=== PATIENT | female | born 1975 | race Caucasian/White ===

== ENCOUNTER 2017-11-21 10:45 | Inpatient (IN) | payer MEDICARE ==
[~2017-11-21] VITALS: Ht 167.6 cm; Wt 127.9 kg
[~2017-11-21 10:45] MED LIST: AC325T PO; CIPRO PO; CIPROFLOXACIN500 MG PO; COLACE100 MG PO; FIORINAL 50-321 EACH PO; FLAGYL PO; FLAGYL500 MG PO; INVEGA6 MG PO; KLONOPIN1 MG PO; KLONOPIN2 MG PO; LYRICA50 MG PO; MELOXICAM7.5 MG PO; PROMETHAZINE HC25 M1 PO; PROPRANOLOL HCL20 MG PO; PROPRANOLOL HCL40 MG PO; ULTRAM 50MG50 MG PO; ZOFRAN ODT4 MG PO
--- OUTSIDE RECORDS SUMMARY | 2017-11-21 10:48 | XMS REPORT ---
Author Author [facility] Organization [facility] Address Unknown Phone Unavailable Care Team Providers Care Social Work Administrator Name Role Phone JONG ALEJANDRE Unavailable Unavailable Problems This patient has no known problems. Allergies, Adverse Reactions, Alerts This patient has no known allergies or adverse reactions. Medications This patient has no known medications. Results Test Description Test Time Test Comments Text Results Atomic Results Result Comments CHEST 2 VIEWS [place] [address] Patient Name: SALAZAR HENNESSY MR #: [id number] : 1975 Age/Sex: 41/F Req #: [id number] Adm Physician: Ordered by: NICKOLAS HU Report #: [id number] Location: ER Room/Bed: Procedure: [id number] DX/CHEST 2 VIEWS Exam Date: 06/23/17 Exam Time: 1330 REPORT STATUS: Signed PROCEDURE: CHEST 2 VIEWS TECHNIQUE: PA and lateral chest INDICATION: Shortness of breath COMPARISON: [facility], DX, CHEST 2 VIEWS, 06/12/2016, 19:20. FINDINGS : Lungs are clear and symmetrically inflated. No pleural effusions. Normal heart size and central vasculature. Intact skeleton. CONCLUSION: No acute abnormality or interval change from June 2016. Dictated by: Fred Max M.D. on 06/23/2017 at 13:54 Electronically approved by: Fred Max M.D. on 06/23/2017 at 13:54 Dictated By: FRED MAX MD [id number] Transcribed By: DAVIDSON on 06/23/17 1353 COPY TO: NICKOLAS HU
[2017-11-21] MEDS ORDERED: ENOXAPARIN SODIUM INJ 100 MG/ML SYR SC STA (11:17)
[2017-11-21] MEDS ORDERED: FAMOTIDINE 20 MG/2 ML VIAL IV STA (11:17)
[2017-11-21] MEDS ORDERED: SODIUM CHLORIDE 0.9% 1000ML 1,000 ML IV STA ×2 (11:17)
[2017-11-21] MEDS ORDERED: ENOXAPARIN SOD INJ 60 MG/0.6 ML SYR SC NR (11:45)
[2017-11-21 12:12] LABS: BASOPHILS # (AUTO) 0.1 (0.0-0.1); BASOPHILS % 0.6 % (0.0-1.0); EOSINOPHILS # (AUTO) 0.3 (0.0-0.4); EOSINOPHILS % 2.8 % (0.0-6.0); HEMATOCRIT 34.9 % (34.2-44.1); HEMOGLOBIN 11.7 g/dL (12.0-16.0); LYMPHOCYTES # (AUTO) 3.4 (1.0-3.2); LYMPHOCYTES % 30.1 % (18.0-39.1); MEAN CORPUSCULAR HEMOGLOBIN 29.8 pg (28-32); MEAN CORPUSCULAR HGB CONC 33.5 g/dL (31-35); MEAN CORPUSCULAR VOLUME 88.8 fL (81-99); MONOCYTES # (AUTO) 0.8 (0.2-0.8); MONOCYTES % 6.8 % (4.4-11.3); NEUTROPHILS # (AUTO) 6.5 (2.1-6.9); NEUTROPHILS % 58.1 % (38.7-80.0); PLATELET COUNT 531 x10e3/uL (140-360); RED BLOOD COUNT 3.93 x10e6/uL (3.6-5.1); RED CELL DISTRIBUTION WIDTH 13.4 % (11.7-14.4)
[2017-11-21 12:21] LABS: BILIRUBIN,URINE NEGATIVE (NEGATIVE); KETONES,URINE NEGATIVE (NEGATIVE); LEUKOCYTE ESTERASE ,URINE NEGATIVE (NEGATIVE); NITRITE,URINE NEGATIVE (NEGATIVE); PROTEIN,URINE DIPSTICK NEGATIVE (NEGATIVE); URINE UROBILINOGEN 0.2 mg/dL (0.2 - 1)
[2017-11-21 12:30] LABS: INR 1.02; PARTIAL THROMBOPLASTIN TIME 17.5 seconds (23.8-35.5); PROTHROMBIN TIME 12.6 seconds (11.9-14.5)
[2017-11-21 12:32] LABS: CLARITY,URINE SL CLOUDY (CLEAR); COLOR,URINE YELLOW (YELLOW)
[2017-11-21 12:34] LABS: BACTERIA,URINE MANY /HPF; EPITHELIAL CELLS,URINE FEW /LPF
[2017-11-21 12:38] LABS: ALANINE AMINOTRANSFERASE 23 IU/L (0-55); ALBUMIN 3.4 g/dL (3.5-5.0); ALBUMIN/GLOBULIN RATIO 0.9 (0.8-2.0); ALKALINE PHOSPHATASE 95 IU/L (40-150); ANION GAP 14.2 mmol/L (8-16); BLOOD UREA NITROGEN 13 mg/dL (7-26); BUN/CREATININE RATIO 15 (6-25); CALCIUM 9.7 mg/dL (8.4-10.2); CARBON DIOXIDE 22 mmol/L (22-29); CHLORIDE 106 mmol/L (98-107); CREATININE, SERUM 0.85 mg/dL (0.57-1.11); EST GLOMERULAR FILTRATION RATE > 60 ML/MIN (60-); GLUCOSE 84 mg/dL (74-118); LIPASE 26 U/L (8-78); MAGNESIUM 1.9 MG/DL (1.3-2.1); POTASSIUM 4.2 mmol/L (3.5-5.1); SODIUM 138 mmol/L (136-145)
[2017-11-21 12:39] LABS: CREATINE KINASE < 7 IU/L (29-168)
--- NOTE | 2017-11-21 13:04 | Diagnostic Imaging Report ---
PROCEDURE: A single AP view of the chest. COMPARISON: Chest radiograph 06/23/2017 INDICATIONS: CHEST PAIN, LEFT ARM PAIN FINDINGS: Lines/tubes: None. Lungs: The lungs are well inflated and clear. There is no evidence of pneumonia or pulmonary edema. Pleura: There is no pleural effusion or pneumothorax. Heart and mediastinum: The heart and the mediastinum are unremarkable. Bones: No acute bony abnormality. IMPRESSION: No acute cardiopulmonary disease. Dictated by: Eran Huff M.D. on 11/21/2017 at 13:05 Electronically approved by: Eran Huff M.D. on 11/21/2017 at 13:05
[2017-11-21] MEDS ORDERED: SODIUM CHLORIDE 0.9% 1000ML 1,000 ML IV SCH (13:23)
[2017-11-21] MEDS ORDERED: ONDANSETRON HCL INJ 2 MG/ML VIAL IV PRN (13:30)
[2017-11-21] MEDS ORDERED: ASPIRIN 81 MG CHEW TAB PO ONE (13:30)
--- NOTE | 2017-11-21 14:33 | Diagnostic Imaging Report ---
PROCEDURE: CT scan of the chest WITH intravenous contrast, using standard protocol. TECHNIQUE: The chest was scanned utilizing a multidetector helical scanner from the lung apex through the level of the adrenal glands after the IV administration of 71 cc of Isovue 370. Coronal and sagittal multiplanar reformations were obtained. COMPARISON: None. INDICATIONS: CHEST PAIN, SHORTNESS OF BREATH FINDINGS: Vasculature: Filling defects are identified in the left lower lobe pulmonary artery with extension to the anterior and lateral basal segmental arteries, exemplified on series 2 image 46. Suspected right lower lobe segmental pulmonary embolus seen on series 2 image 58. Otherwise the pulmonary arterial structures are clear. No main, central right, or central left pulmonary embolus. No right ventricular dilatation or septal bowing. Pulmonary outflow tract is of normal caliber. No ectasia or aneurysmal dilatation of the thoracic aorta. Great vessel origins are normal in caliber and configuration. No pericardial effusion. Lungs and Airways: Dependent groundglass opacities in the lower lobes compatible with subsegmental atelectasis. Scattered foci of groundglass opacities with intervening lucencies compatible with mild air trapping. No consolidation or gross fibrotic change. Trachea, mainstem bronchi, and central lobar and segmental bronchi's are patent. Pleura: The pleural spaces are clear. Heart and mediastinum: Visualized portions of the thyroid gland are normal. No axillary, hilar, or mediastinal lymphadenopathy. Soft tissues: No focal soft tissue abnormalities. Abdomen: Visualized portions of the liver, spleen, adrenals, kidneys, and pancreas are unremarkable. Bones: No osseous destructive lesions. IMPRESSION: Left lower lobar and segmental pulmonary emboli and probable right lower lobe segmental pulmonary embolus without evidence of right heart strain. Findings were discussed with Dr. Sanchez of the emergency center at 2:25 PM on 11/21/2017. Dictated by: Ronnie Cespedes M.D. on 11/21/2017 at 14:33 Electronically approved by: Ronnie Cespedes M.D. on 11/21/2017 at 14:33
[2017-11-21] MEDS: FAMOTIDINE 20 MG/2 ML VIAL IV SCH (14:55)
[2017-11-21] MEDS ORDERED: SODIUM CHLORIDE 0.9% 50ML 50 ML ONE (18:56)
[2017-11-21] MEDS ORDERED: IOPAMIDOL 370 MG/ML 200 ML INFUS..BTL INJ ONE (18:56)
[2017-11-21 19:10] VITALS: BP 162/66
[2017-11-21 19:43] VITALS: BP 162/66
[2017-11-21] MEDS: MORPHINE SULFATE 2 MG/ML SYR IV PRN (19:45)
[2017-11-21 20:00] VITALS: BP 162/66
[2017-11-21] MEDS: RIVAROXABAN 15 MG TABLET PO SCH (20:33)
[2017-11-21 20:56] LABS: CREATINE KINASE < 7 IU/L (29-168)
[2017-11-21] MEDS ORDERED: ENOXAPARIN SODIUM INJ 100 MG/ML SYR SC SCH ×2 (21:00)
[2017-11-21] MEDS ORDERED: ENOXAPARIN INJ 80 MG/0.8 ML SYR SC SCH (21:00)
[2017-11-21] MEDS ORDERED: PNEUMOCOCCAL VACCINE POLYVALENT 23 MCG/0.5 ML VIAL IM ONE (21:30)
[2017-11-22] VITALS (8 sets, daily range): BP systolic 110–144; BP diastolic 57–74
[2017-11-22 04:11] LABS: BASOPHILS # (AUTO) 0.1 (0.0-0.1); BASOPHILS % 0.6 % (0.0-1.0); EOSINOPHILS # (AUTO) 0.4 (0.0-0.4); EOSINOPHILS % 3.5 % (0.0-6.0); HEMATOCRIT 30.8 % (34.2-44.1); HEMOGLOBIN 10.2 g/dL (12.0-16.0); LYMPHOCYTES # (AUTO) 3.5 (1.0-3.2); LYMPHOCYTES % 34.2 % (18.0-39.1); MEAN CORPUSCULAR HEMOGLOBIN 29.4 pg (28-32); MEAN CORPUSCULAR HGB CONC 33.1 g/dL (31-35); MEAN CORPUSCULAR VOLUME 88.8 fL (81-99); MONOCYTES # (AUTO) 0.8 (0.2-0.8); MONOCYTES % 7.3 % (4.4-11.3); NEUTROPHILS # (AUTO) 5.4 (2.1-6.9); NEUTROPHILS % 52.8 % (38.7-80.0); PLATELET COUNT 480 x10e3/uL (140-360); RED BLOOD COUNT 3.47 x10e6/uL (3.6-5.1); RED CELL DISTRIBUTION WIDTH 13.7 % (11.7-14.4)
[2017-11-22 04:33] LABS: ALANINE AMINOTRANSFERASE 18 IU/L (0-55); ALBUMIN 2.9 g/dL (3.5-5.0); ALKALINE PHOSPHATASE 93 IU/L (40-150); ANION GAP 12.8 mmol/L (8-16); BLOOD UREA NITROGEN 15 mg/dL (7-26); BUN/CREATININE RATIO 19 (6-25); CALCIUM 8.5 mg/dL (8.4-10.2); CARBON DIOXIDE 22 mmol/L (22-29); CHLORIDE 106 mmol/L (98-107); CREATININE, SERUM 0.77 mg/dL (0.57-1.11); EST GLOMERULAR FILTRATION RATE > 60 ML/MIN (60-); GLUCOSE 112 mg/dL (74-118); MAGNESIUM 1.6 MG/DL (1.3-2.1); PHOSPHORUS 4.5 MG/DL (2.3-4.7); POTASSIUM 3.8 mmol/L (3.5-5.1); SODIUM 137 mmol/L (136-145)
[2017-11-22 04:37] LABS: CREATINE KINASE < 7 IU/L (29-168)
[2017-11-22] MEDS: FAMOTIDINE 20 MG/2 ML VIAL IV SCH (08:13)
[2017-11-22] MEDS: RIVAROXABAN 15 MG TABLET PO SCH (08:13)
[2017-11-22] MEDS: MORPHINE SULFATE 2 MG/ML SYR IV PRN (08:20)
[2017-11-22] MEDS ORDERED: ASPIRIN 325 MG TAB EC PO SCH (09:00)
[2017-11-22] MEDS ORDERED: ALPRAZOLAM 0.25 MG TAB PO PRN (11:00)
--- NOTE | 2017-11-22 11:00 | Consultation ---
DATE OF CONSULTATION: November 21, 2017 CARDIOLOGY CONSULTATION REASON FOR CONSULTATION: Chest pain. HISTORY OF PRESENT ILLNESS: Ms. Carey is a 42-year-old lady with past medical history of hypertension, anxiety, morbid obesity who presents to this institution with 3-day history of recurring chest pain. The patient was in her usual state of health up until about a week ago where she underwent a panniculectomy operation removing fat from her lower abdominal pannus and was discharged with 2 Bobby-Harris drains. She has been having significant pain related to her incision site and has not been ambulating well. She developed new onset lump and pain in her left leg with a dull ache and heaviness and some slight swelling in her right leg. She has developed new onset pains in her bilateral chest deep inside, moderate to severe in nature, sharp sensation exacerbated while taking a deep breath in associated with shortness of breath. She has reported over the last 2 days feeling periods where she wakes up gasping for air and has difficulty catching her breath. A long story short, the patient was found to have acute venous thrombosis of her right GSV extending into the right common femoral vein and additionally has noted subsegmental pulmonary emboli on CAT scan. The patient's blood pressure currently is 140s/90s. She reports pain upon deep inspiration, similar to presentation, for the last going on 3 days, and is currently satting 100% on room air, breathing about 20 times a minute, and appears comfortable. She is able to complete full sentences and has no other issues. In terms of her NADIA drain, she does report some pain over her incision site, and the NADIA drain has some serosanguineous output that has been going on for the last couple days. She denies any fevers or chills. Denies any bright red blood per rectum, melena, hematemesis. PAST MEDICAL HISTORY: 1. Hypertension. 2. Anxiety. 3. History of diverticulitis. 4. History of UTI. 5. Obesity. PAST SURGICAL HISTORY: History of panniculitis surgery, as noted above. FAMILY HISTORY: Mother and father are both alive in their 70's. Mother has hypertension. There is no premature family history of coronary artery disease and denies any hypercoagulable state. SOCIAL HISTORY: She is a nonsmoker. Denies any alcohol or illicit drug use. ALLERGIES: NO KNOWN DRUG ALLERGIES. HOME MEDICATIONS: Meloxicam 7.5 mg p.r.n., Lyrica 50 mg daily, propranolol 40 mg b.i.d. REVIEW OF SYSTEMS: GENERAL: Denies any fevers or chills or any weight changes. HEENT: No headaches, visual complaints, sore throat, stuffy nose. RESPIRATORY: Positive for pleuritic chest pain and some shortness of breath as noted above. CARDIOVASCULAR: As per HPI. Denies any palpitations or syncope. GI: Denies any nausea, vomiting, bright red blood per rectum, melena, hematemesis, does have some lower abdominal incisional wall pain. : Denies dysuria or change in urinary frequency. MUSCULOSKELETAL: Has some chronic back pains and a little bit of leg pains bilaterally, left more than right, and some swelling as noted above. NEUROLOGIC: Denies any focal weakness, numbness, tingling, seizures, headache, history of TIA or stroke. ENDOCRINE: No heat or cold intolerance. The remainder of the review of systems is negative other than otherwise mentioned. PHYSICAL EXAMINATION VITAL SIGNS: Height of 66 inches, weight of 298 pounds. BMI is 48.1. Temperature 98.3, pulse 94, respiratory rate 15, blood pressure 152/82, O2 sat 100% on room air. GENERAL: This is a morbidly obese lady who is lying in bed currently, in no apparent distress. HEENT: Normocephalic and atraumatic. Pupils equal, round and reactive to light. Extraocular movements are intact. Oropharynx is clear. NECK: No elevation of jugular venous pulsation. No carotid bruits. CARDIOVASCULAR: Regular rate and rhythm. Normal S1 and S2. No gallops. No murmurs. LUNGS: Relatively clear to auscultation bilaterally. There is some slight pain with deep inspiration. ABDOMEN: Soft, nontender and obese. There is a long transverse scar in her lower abdominal wall with 2 NADIA drains located kind of in the suprapubic region. The site appears intact, healing. There does not appear to be any fluctuance or warmth. BACK: No costovertebral angle tenderness. EXTREMITIES: Warm with trace bilateral edema and some slight asymmetrical leg swelling, left may be slightly more than right. There are tattoos all over her body. NEUROLOGIC: Cranial nerves II-XII intact. Strength is 5/5. She appears nonfocal. LABORATORY DATA: White count 11.2, hemoglobin 11.7, hematocrit 34.9, platelet count 531,000. Sodium 138, potassium 4.2, chloride 106, bicarb 22, BUN 13, creatinine 0.85, glucose 84, calcium of 9.7, AST 21, ALT 23, alkaline phosphatase 95, total protein is 7.4, albumin 3.4, TSH is 2.68. BNP less than 10, troponin less than 0.001. INR is 1.02. UA is negative. EKG reveals sinus tachycardia, heart rate at 100. Delayed R to S transition, but no ST-T wave changes. Chest x-ray is unremarkable. Chest CT reveals left lower lobar and segmental pulmonary emboli and probable right lower lobe segmental pulmonary emboli without evidence of right heart strain. Lower extremity Duplex reveals the presence of right GSV and partial right common femoral vein DVT. DIAGNOSES 1. Acute pulmonary embolism seemingly without complications secondary to provoking factor being obesity and relative immobility recent postoperative state. 2. Right lower extremity deep venous thrombosis. 3. Hypertension, essential. 4. Status post panniculectomy operation recently. PLAN/RECOMMENDATIONS: 1. From a cardiovascular standpoint, will check echocardiogram to see if there is any evidence of heart strain on echocardiogram. Her symptoms are typical, pleuritic and pulmonary embolism type pain and no symptoms consistent with acute coronary syndrome. 2. In light of her recent abdominal wall surgery, will go ahead and discontinue Lovenox shots as we do not want to accidentally hit a vessel or irritate a potential bleeding site in the abdomen. I am going to go ahead and start her on Xarelto 15 mg p.o. b.i.d. as treatment for full anticoagulation for what seems to be so far uncomplicated DVT, PE. 3. Will watch the patient overnight and place on telemetry. 4. Will hold off beta adri for now and reintroduce beta adri therapy if necessary for blood pressure control. 5. Will continue to follow this patient with you. Thank you for this referral. Job#: [id number] GH MTDNoe
--- NOTE | 2017-11-22 14:25 | History and Physical ---
PRIMARY CARE PHYSICIAN: Dr. Anshul Grey. CHIEF COMPLAINT: DVT of the right lower extremity and bilateral pulmonary embolism. HISTORY OF PRESENT ILLNESS: A 42-year-old female, obesity, status post pannectomy of large abdominal apron/fold. Patient has procedure at [facility] on November 10, 2017. Patient is still with a NADIA drain in place. Apparently, she was sent home. She was feeling okay, but for the past few days, patient was unable to sleep. She has increasing shortness of breath and developing increased right lower extremity, especially thigh pain. Patient came in and multiple tests were done. Patient found to have a DVT to the right lower extremity. CT scan with PE protocol showed her to have bilateral pulmonary embolisms. Patient placed on anticoagulant therapy and the patient seems comfortable at this time. The patient is stable. PAST MEDICAL HISTORY 1. Obesity, status post pannectomy. Large abdominal apron surgery postop on November 10, 2017. 2. Osteoarthritis. 3. Hypertension. 4. Anxiety disorder. PAST SURGICAL HISTORY: As above. SOCIAL HISTORY: Patient does not smoke or use alcohol. No recreational drugs. ALLERGIES: NO KNOWN ALLERGY. HOME MEDICATIONS: Propranolol. REVIEW OF SYSTEMS: Shortness of breath. Postop on abdominal fold removal. PHYSICAL EXAMINATION: VITAL SIGNS: Temperature is 98, blood pressure 144/67, pulse rate 84, and respirations 20. GENERAL: The patient is in no acute distress. He is awake. HEENT: Normocephalic, atraumatic. NECK: Supple. PULMONARY: Diminished breath sounds without any wheezing or rales. CARDIOVASCULAR: Regular rate and rhythm. ABDOMEN: Status post pannectomy for a large abdominal apron/fold. EXTREMITIES: Right thigh tenderness and swelling. Left calf area, chronic pain. NEUROLOGIC: No focal deficit. LABORATORY: Sodium is 137, potassium 3.8, chloride 106, bicarb 22, BUN 15, creatinine 0.8, and glucose 112. WBC is 10.2, hemoglobin 10.2, hematocrit 30.8, and platelets 480. PT and INR is 12.6 and 1.02. IMPRESSION 1. Bilateral lower lobe pulmonary embolism. 2. Right lower extremity deep venous thrombosis. 3. Recent November 10, 2017 large abdominal apron removal. 4. Obesity. 5. Hypertension. 6. Anxiety. PLAN: Continue anticoagulant therapy. Because of insurance issues, we will stop Xarelto and place the on Lovenox. Lovenox will be full dose treatment. Patient will also be initiated on warfarin treatment as well. Daily PT and INR. Consultation with Dr. Bean, automobile repossessor. We will monitor the patient closely at this time. Limited ambulation for now until fully anticoagulated. Job#: [id number] ANTIONE
[2017-11-22] MEDS: WARFARIN SOD 5 MG TAB PO SCH (16:39)
[2017-11-22] MEDS ORDERED: ENOXAPARIN INJ 80 MG/0.8 ML SYR SC SCH (21:00)
[2017-11-22] MEDS: ENOXAPARIN SOD INJ 60 MG/0.6 ML SYR SC SCH (21:29)
[2017-11-22] MEDS: ALPRAZOLAM 0.25 MG TAB PO PRN (21:31)
[2017-11-23] VITALS (8 sets, daily range): BP systolic 96–140; BP diastolic 51–73
[2017-11-23 06:24] LABS: BASOPHILS # (AUTO) 0.1 (0.0-0.1); BASOPHILS % 0.6 % (0.0-1.0); EOSINOPHILS # (AUTO) 0.3 (0.0-0.4); EOSINOPHILS % 3.6 % (0.0-6.0); HEMATOCRIT 30.8 % (34.2-44.1); LYMPHOCYTES # (AUTO) 3.2 (1.0-3.2); LYMPHOCYTES % 35.3 % (18.0-39.1); MEAN CORPUSCULAR HEMOGLOBIN 29.2 pg (28-32); MEAN CORPUSCULAR HGB CONC 32.5 g/dL (31-35); MEAN CORPUSCULAR VOLUME 89.8 fL (81-99); MONOCYTES # (AUTO) 0.6 (0.2-0.8); MONOCYTES % 6.4 % (4.4-11.3); NEUTROPHILS # (AUTO) 4.7 (2.1-6.9); NEUTROPHILS % 52.8 % (38.7-80.0); PLATELET COUNT 447 x10e3/uL (140-360); RED BLOOD COUNT 3.43 x10e6/uL (3.6-5.1); RED CELL DISTRIBUTION WIDTH 13.2 % (11.7-14.4)
[2017-11-23 06:44] LABS: INR 1.32; PROTHROMBIN TIME 15.4 seconds (11.9-14.5)
[2017-11-23] MEDS: ACETAMINOPHEN 325 MG TAB PO PRN ×2 (07:44→21:33)
[2017-11-23] MEDS: ENOXAPARIN SOD INJ 60 MG/0.6 ML SYR SC SCH ×2 (08:00→21:33)
[2017-11-23] MEDS: WARFARIN SOD 5 MG TAB PO SCH (17:00)
[2017-11-23] MEDS: ALPRAZOLAM 0.25 MG TAB PO PRN (21:33)
[2017-11-24 02:44] VITALS: BP 122/58
[2017-11-24 04:00] VITALS: BP 105/51
[2017-11-24 07:27] LABS: BASOPHILS % 0.5 % (0.0-1.0); EOSINOPHILS # (AUTO) 0.3 (0.0-0.4); EOSINOPHILS % 3.1 % (0.0-6.0); HEMATOCRIT 32.1 % (34.2-44.1); HEMOGLOBIN 10.4 g/dL (12.0-16.0); LYMPHOCYTES # (AUTO) 2.9 (1.0-3.2); LYMPHOCYTES % 36.3 % (18.0-39.1); MEAN CORPUSCULAR HEMOGLOBIN 29.1 pg (28-32); MEAN CORPUSCULAR HGB CONC 32.4 g/dL (31-35); MEAN CORPUSCULAR VOLUME 89.7 fL (81-99); MONOCYTES # (AUTO) 0.5 (0.2-0.8); MONOCYTES % 6.7 % (4.4-11.3); NEUTROPHILS # (AUTO) 4.3 (2.1-6.9); NEUTROPHILS % 52.7 % (38.7-80.0); PLATELET COUNT 499 x10e3/uL (140-360); RED BLOOD COUNT 3.58 x10e6/uL (3.6-5.1); RED CELL DISTRIBUTION WIDTH 13.1 % (11.7-14.4)
[2017-11-24 07:37] LABS: INR 2.08
[2017-11-24 08:04] LABS: FERRITIN 32.43 ng/mL (4.63-204.00)
[2017-11-24 08:12] VITALS: BP 117/68
[2017-11-24 09:35] VITALS: BP 117/68
[2017-11-24] MEDS: ENOXAPARIN SOD INJ 60 MG/0.6 ML SYR SC SCH (09:35)
[2017-11-24] MEDS ORDERED: COUMADIN2.5 MG PO (11:10)
[2017-11-24] MEDS ORDERED: COUMADIN5 MG PO (11:10)
--- NOTE | 2017-11-24 14:05 | Discharge Summary ---
PRIMARY CARE PHYSICIAN: Dr. Anshul Grey CREAM HAULER: Dr. Leo Bean FINAL DIAGNOSES 1. Bilateral pulmonary embolism. 2. Right lower extremity deep venous thrombosis. 3. History of hemicolectomy recently approximately 2 weeks ago. SUMMARY: Patient is a 42-year-old morbidly obese female who came in with DVT and pulmonary embolism as mentioned. She had surgery hemicolectomy approximately 2 weeks ago at [facility]. The patient has remained on a NADIA drain. She is doing much better. Shortness of breath has resolved. Because of her obesity, weight over 280 pounds and BMI greater than 45-50, the patient is not a good candidate for other medications for anticoagulant therapy except for warfarin. Dr. Bean was consulted. The patient is stable. Her INR today is 2.08. She has received Lovenox 120 mg twice a day subcutaneous. Patient is stable. No bleeding. Hemoglobin and hematocrit of 10.4 and 32.1. The patient was getting 10 mg of Coumadin on a daily basis. The patient will go home with 7.5 mg of Coumadin at night. The patient will need PT and INR on Friday. The patient was stable. She will get her dosing on prescription today going down to 7.5 mg since her INR went up quite rapidly of 2.08. Patient is stable and discharged home. Follow up with Dr. Grey Friday for PT and INR check. Job#: [id number] CAROLA
== END 2017-11-24 11:28 | disposition home or self-care (01) | DRG 176 ==
LOC: ER 10:45 → ERHOLD 14:29 → OBSVTOIN 14:29 → MED/SURG 17:36
PROVIDERS: ADMIT Internal Medicine; ATTEND Internal Medicine
DX: I26.99 Other pulmonary embolism without acute cor pulmonale (principal); Z68.42 Body mass index [BMI] 45.0-49.9, adult; I82.491 Acute embolism and thrombosis of other specified deep vein of right lower extremity; E66.01 Morbid (severe) obesity due to excess calories; I10 Essential (primary) hypertension; F41.9 Anxiety disorder, unspecified; Z98.890 Other specified postprocedural states; G89.29 Other chronic pain
CPT/HCPCS: 36415; 71045; 71260; 80053; 81001; 82550; 82553; 82607; 82728; 82746; 83540; 83690; 83735; 83880; 84100; 84443; 84466; 84484; 84702; 85025; 85610; 85730; 87086; 90732; 93005; 93306; 93970; 99284; J1650; J2270; J7030; Q9967

== ENCOUNTER 2017-12-04 13:00 | Inpatient (IN) | payer MEDICARE ==
[~2017-12-04] VITALS: Ht 167.6 cm; Wt 133.8 kg
[~2017-12-04 13:00] MED LIST changes: +COUMADIN2.5 MG PO; +COUMADIN5 MG PO
--- OUTSIDE RECORDS SUMMARY | 2017-12-04 13:03 | XMS REPORT | Clinical Summary ---
Author Author [facility] Organization [facility] Address Unknown Phone Unavailable Care Team Providers Care Transition Assistant Name Role Phone Shyla Grey MD PCP Allergies No Known Allergies Current Medications Prescription Sig. Disp. Refills Start End Date Status Date mupirocin (BACTROBAN) 2 % KILEY EXT AA TID FOR 14 0 11/27/19 Active ointment DAYS 18 propranolol (INDERAL) 40 TK 1 T PO BID 0 11/27/19 Active MG tablet 18 warfarin (COUMADIN) 6 MG TK 1 T PO ALONG WITH 1 MG 0 11/28/19 Active tablet TOTAL DOSE OF 7 MG D 18 zolpidem (AMBIEN) 5 MG TK 1 T PO QD HS PRN 0 11/15/19 Active tablet 18 acetaminophen-codeine Take 1-2 tablets by mouth 20 tablet 0 11/29/19 12/07/19 Active (TYLENOL WITH CODEINE #3) every 6 (six) hours as 18 18 300-30 mg per tablet needed for moderate pain for up to 20 doses. Active Problems Not on file Encounters Date Type Specialty Care Team Description 11/28/2017 Hospital Radiology Amandeep Krause, Encounter 11/28/2017 Emergency Emergency Medicine Amandeep Krause, Other chronic pulmonary MD embolism without acute cor pulmonale (Primary Dx) after 12/03/2016 Social History Tobacco Use Types Packs/Day Years Used Date Never Smoker Smokeless Tobacco: Never Used Alcohol Use Drinks/Week oz/Week Comments No Sex Assigned at Date Recorded Not on file Last Filed Vital Signs Vital Sign Reading Time Taken Blood Pressure 112/82 11/28/2017 10:40 PM CDT Pulse 87 11/28/2017 10:40 PM CDT Temperature 36.6 C (97.8 F) 11/28/2017 10:40 PM CDT Respiratory Rate 20 11/28/2017 10:40 PM CDT Oxygen Saturation 97% 11/28/2017 10:40 PM CDT Inhaled Oxygen - - Concentration Weight - - Height 165.1 cm (5' 5") 11/28/2017 7:18 PM CDT Body Mass Index - - Plan of Treatment Health Maintenance Due Date Last Done Comments PAP SMEAR 1997 INFLUENZA VACCINE 04/01/2018 Results * CT Angiogram Pe Chest (11/28/2017 9:54 PM) Specimen Performing Laboratory [facility] [address] [place] [address] ANGIOGRAM PE CHEST CLINICAL INDICATION: concern for pe COMPARISON:None. TECHNIQUE:CT angiographic images of the chest were obtained during intravenous administration of iodinated contrast.Computerized, reformatted images and 3-D MIP images were obtained and archived (per CT pulmonary embolism protocol). CT scans are performed using radiation dose reduction techniques (iterative reconstruction and/or automated exposure control). Technical factors are evaluated and adjusted to ensure appropriate moderation of exposure. Automated dose management technology is applied to adjust radiation exposure while achieving a diagnostic quality image. FINDINGS: Pulmonary arteries: Diagnostic quality of study is adequate for the evaluation of pulmonary embolism. There is pulmonary embolism within left lower lobar pulmonary artery. The main pulmonary artery measures 25 mm in luminal diameter. Exam evaluation: Adequate Clot burden: Mild Saddle embolus: No Ventricular septal bulging: No RV:LV: Less than 0.9 Aorta:No aneurysm or dissection. Lungs and large airways:Dependent subsegmental atelectasis/scarring. No focal or confluent airspace consolidation. Pleura:No pleural effusion, pleural thickening, or pneumothorax. Heart and pericardium:Heart size is normal. No pericardial effusion. Mediastinum and geoff:No mass or hematoma. Lymph nodes:No pathological adenopathy in the geoff, axilla or mediastinum. Chest wall:Unremarkable. Bones:No acute osseous abnormalities. Upper abdomen:No focal abnormality detected with limited evaluation. IMPRESSION: 1. Pulmonary embolism within left lower lobe pulmonary artery. Mild clot burden without imaging evidence of right heart strain. 2. Lungs without focal or confluent airspace consolidation. Findings discussed with DR. AMANDEEP KRAUSE at 11/28/2017 10:06 PM, with acknowledgement of understanding. [facility]-[id number] Procedure Note Interface, Radiology Results Incoming - 11/28/2017 10:[address] ANGIOGRAM PE CHEST CLINICAL INDICATION: concern for pe COMPARISON: None. TECHNIQUE: CT angiographic images of the chest were obtained during intravenous administration of iodinated contrast. Computerized, reformatted images and 3-D MIP images were obtained and archived (per CT pulmonary embolism protocol). CT scans are performed using radiation dose reduction techniques (iterative reconstruction and/or automated exposure control). Technical factors are evaluated and adjusted to ensure appropriate moderation of exposure. Automated dose management technology is applied to adjust radiation exposure while achieving a diagnostic quality image. FINDINGS: Pulmonary arteries: Diagnostic quality of study is adequate for the evaluation of pulmonary embolism. There is pulmonary embolism within left lower lobar pulmonary artery. The main pulmonary artery measures 25 mm in luminal diameter. Exam evaluation: Adequate Clot burden: Mild Saddle embolus: No Ventricular septal bulging: No RV:LV: Less than 0.9 Aorta: No aneurysm or dissection. Lungs and large airways: Dependent subsegmental atelectasis/scarring. No focal or confluent airspace consolidation. Pleura: No pleural effusion, pleural thickening, or pneumothorax. Heart and pericardium: Heart size is normal. No pericardial effusion. Mediastinum and geoff: No mass or hematoma. Lymph nodes: No pathological adenopathy in the geoff, axilla or mediastinum. Chest wall: Unremarkable. Bones: No acute osseous abnormalities. Upper abdomen: No focal abnormality detected with limited evaluation. IMPRESSION: 1. Pulmonary embolism within left lower lobe pulmonary artery. Mild clot burden without imaging evidence of right heart strain. 2. Lungs without focal or confluent airspace consolidation. Findings discussed with DR. AMANDEEP KRAUSE at 11/28/2017 10:06 PM, with acknowledgement of understanding. [facility]-[id number] * Estimated GFR (11/28/2017 8:55 PM) Component Value Ref Range GFR Non Af Amer >90 mL/min/1.73 m2 GFR Af Amer >90 mL/min/1.73 m2 Comment: Chronic kidney disease: <60 mL/min/1.73m2 Kidney failure: <15 mL/min/1.73m2 The estimated GFR is calculated from the IDMS-traceable Modification of Diet in Renal Disease Equation. The accuracy of the calculation is poor when the creatinine is normal. Calculated values >90 mL/min/1.73m2 are not reported. This equation has not been validated in children (<18 years), women, the elderly (>70 years), or ethnic groups other than Caucasians and Americans. Specimen Performing Laboratory Plasma specimen [facility] [address] * Prothrombin time with INR, I-Stat (11/28/2017 8:55 PM) Component Value Ref Range POC prothrombin time 59.0 (H) 11.0 - 14.5 sec POC INR 5.3 (HH) Comment: The International Normalized Ratio (INR) is a therapeutic monitoring tool for patients who are stable on oral vitamin K antagonist therapy. An INR of 2.0-3.0 is suggested for deep vein thrombosis/pulmonary embolism. An INR of 2.5-3.5 (high dose) is suggested for some patients with mechanical heart valves) Critical result reported to Dr.Angel Krause at 21:18 on 11/28/2017 . Verified result by repeat analysis Specimen Performing Laboratory Blood [facility] [address] * hCG qualitative, urine screen (11/28/2017 8:55 PM) Component Value Ref Range hCG qualitative, urine NegativeComment: Sensitivity of HCG test: 25 Negative mIU/ml Specimen Performing Laboratory [facility] [address] * Comprehensive metabolic panel (11/28/2017 8:55 PM) Component Value Ref Range Sodium 137 128 - 145 mEq/L Potassium 4.7 3.6 - 5.1 mEq/L CO2 28 18 - 33 mEq/L Chloride 104 98 - 108 mEq/L Glucose 103 73 - 118 mg/dL Calcium 9.1 8.0 - 10.3 mg/dL BUN 12 7 - 22 mg/dL Creatinine 0.7 0.6 - 1.2 mg/dL Alkaline phosphatase 100 42 - 141 U/L ALT 43 10 - 47 U/L AST 33 11 - 38 U/L Total bilirubin 0.6 0.2 - 1.6 mg/dL Albumin 3.4 3.3 - 5.5 g/dL Protein 6.7 6.4 - 8.1 g/dL Anion gap 5 (L) 7 - 15 mEq/L Comment: Starting from November , anion gap calculation no longer incorporates potassium. Please note the change. A/G ratio 1.03 0.70 - 3.80 Specimen Performing Laboratory Plasma specimen [facility] [address] [place] [address] after 12/03/2016 Insurance Payer Benefit Subscriber ID Type Phone Address Plan / Group [facility] xxxxxxxx [facility] [id number] [place] [address]
--- OUTSIDE RECORDS SUMMARY | 2017-12-04 13:03 | XMS REPORT | Continuity of Care Document ---
Author Author [facility] Organization [facility] Address [address] [facility] [place] [address] Phone Unavailable Care Team Providers Care Manager Retail Sales Name Role Phone ADRIAN LINDSAY MD PCP Insurance Providers Guarantor Salazar Hennessy Address [address] [address] Email [facility] [employer] Medicare Advantage Policy Number [id number] Subscriber's Name Salazar Hennessy Relationship 18 Self / Same As Patient Group Number [id number] Group Name UNEMPLOYED Effective Date 09 Advance Directives Directive Response Recorded Date/Time Does the patient have an advance directive? No 11/21/17 9:10pm If yes, is advance directive on file with [facility]? No 11/21/17 9:10pm If not on file with [facility] will patient provide a copy? No 11/21/17 9:10pm Do you have a Directive to Physician? No 11/21/17 11:34am Do you have a Medical Power of Hard Candy Batch Mixer? No 11/21/17 11:34am Do you have an out of hospital Do Not Resuscitate Order? No 11/21/17 11:34am Do you have any special needs we should be aware of? No 11/21/17 11:34am Do you have a support person here with you today? Yes 11/21/17 11:34am Did patient receive Notice of Privacy Practices? Yes 11/21/17 11:34am Did patient receive patient rights and responsibilities? Yes 11/21/17 11:34am Problems Medical Problem Onset Date Status Acute deep vein thrombosis (DVT) Unknown Cellulitis Unknown Acute Chest pressure Unknown Chest wall pain Unknown Acute Diverticulitis 03/01/2015 Acute Diverticulitis large intestine 03/01/2015 Acute Dyspnea Unknown Leg pain, left Unknown Musculoskeletal strain Unknown Acute Obesity Unknown Pressure in chest Unknown Pulmonary embolism, bilateral Unknown Soft tissue infection Unknown Acute UTI (urinary tract infection) 03/01/2015 Acute Medications Current Home Medications Medication Dose Units Route Directions Days Qty Instructions Start Date Propranolol Hcl 40 Mg Tablet 40 Mg Oral Twice A Day 60 Tab Warfarin Sodium (Coumadin) 2.5 Mg Tablet 2.5 Mg Oral Today At 5:00PM 30 Days 7 Tab Warfarin Sodium (Coumadin) 5 Mg Tablet 5 Mg Oral Today At 5:00PM 30 Days 7 Tab Past Home Medications Medication Directions Ordered Status [id number] 325 Mg Tab, 650 Mg Oral Every 6 Hours as needed for 03/02/15 Discontinued Butalbital/Aspirin/Caffeine (Fiorinal 50-325-40 Mg Capsule) 1 Each Capsule, 1 Cap Oral Every 6 Hours as needed for Pain Discontinued Cipro , Oral Twice A Day Discontinued Ciprofloxacin Hcl 500 Mg Tablet, 1 Tab Oral Every 12 Hours 03/02/15 Discontinued Clonazepam (Klonopin) 1 Mg Tablet, 1 Mg Oral Bedtime as needed for Anxiety Discontinued Docusate Sodium (Colace) 100 Mg Cap, 100 Mg Oral Twice A Day 03/02/15 Discontinued Flagyl , Oral Four Times Daily Discontinued Meloxicam 7.5 Mg Tablet, 7.5 Mg Oral Daily as needed for Pain Discontinued Metronidazole (Flagyl) 500 Mg Tablet, 500 Mg Oral Every 12 Hours 03/02/15 Discontinued Ondansetron (Zofran Odt) 4 Mg Tab.rapdis, 1 Tab Oral Every 6 Hours for Nausea 03/02/15 Discontinued Pregabalin (Lyrica) 50 Mg Cap, 50 Mg Oral Daily Discontinued Promethazine Hcl 25 Mg Tablet, 25 Mg Oral As Needed Discontinued Propranolol Hcl 20 Mg Tablet, 20 Mg Oral Bedtime Discontinued Tramadol Hcl (Ultram 50MG*) 50 Mg Tab, 50 Mg Oral Every 6 Hours 03/02/15 Discontinued Social History Social History Problem Response Recorded Date/Time Onset Date Status Hx Psychiatric Problems No 11/21/2017 9:10pm Not Applicable Not Applicable Hx Eating Disorder No 11/21/2017 9:10pm Not Applicable Not Applicable Hx Substance Use Disorder No 11/21/2017 9:10pm Not Applicable Not Applicable Hx Depression No 11/21/2017 9:10pm Not Applicable Not Applicable Hx Alcohol Use No 11/21/2017 9:10pm Not Applicable Not Applicable Hx Physical Abuse No 11/21/2017 9:10pm Not Applicable Not Applicable Smoking Status Start Date Stop Date Never Smoker Hospital Discharge Instructions No hospital discharge instruction information available. Plan of Care Discharge Date 11/24/17 11:28am Disposition HOME, SELF-CARE Instructions/Education Provided Deep Vein Thrombosis Prescriptions See Medication Section Referrals ADRIAN LINDSAY MD (Internal Medicine) Order Date: 1-2 Weeks Entered Date: 11/24/2017 11:02am Address: [address] [place] [id number] JEZ ASHTON MD (Cardiology) Order Date: 2 Weeks Entered Date: 11/24/2017 11:08am Address: [address] [place] [id number] Additional Instructions/Education DIET TOLERATED ACTIVITY TOLERATED TAKE MEDICATIONS PRESCRIBED FOLLOW UP WITH DR LINDSAY IN 1-[address] LINDSAY FOR INCREASED PAIN NOT RELIEVED BY PAIN MEDICATIONS FOLLOW UP WITH DR ASHTON FOR BLOOD WORK DUE TO COUMADIN THERAPY Functional Status Query Response Date Recorded Assistive Devices None November 21, 2017 7:10pm Ambulation Ability Independent November 21, 2017 7:10pm Toileting Ability Independent November 23, 2017 5:57pm Allergies, Adverse Reactions, Alerts No known allergies. Immunizations No immunization information available. Vital Signs Acute Vital Signs Vital Response Date/Time Temperature (Fahrenheit) 98.5 degrees F (97.6 - 99.5) 11/24/2017 9:35am Pulse Pulse Rate (adult) 89 bpm (60 - 90) 11/24/2017 9:35am Respiratory Rate 20 bpm (12 - 24) 11/24/2017 9:35am Blood Pressure 117/68 mm Hg 11/24/2017 9:35am Height 5 ft 6 in 11/21/2017 11:05am Weight 282 lb 11/21/2017 9:10pm Body Mass Index 45.5 kg/m^2 11/21/2017 9:10pm Results Laboratory Results Test Name Result Units Flags Reference Collection Date/Time Result Date/ Time Comments Urine Test NEGATIVE NEGATIVE 06/23/2017 12:45pm 06/23/2017 1:43pm White Blood Count 8.09 x10e3/uL 4.8-10.8 11/24/2017 7:11/24/2017 7 :28am Red Blood Count 3.58 x10e6/uL L 3.6-5.1 11/24/2017 7:11/24/2017 7: 28am Hemoglobin 10.4 g/dL L 12.0-16.0 11/24/2017 7:11/24/2017 7:28am Hematocrit 32.1 % L 34.2-44.1 11/24/2017 7:11/24/2017 7:28am Mean Corpuscular Volume 89.7 fL 81-99 11/24/2017 7:11/24/2017 7: 28am Mean Corpuscular Hemoglobin 29.1 pg 28-32 11/24/2017 7:11/24/2017 7:28am Mean Corpuscular Hemoglobin Concent 32.4 g/dL 31-35 11/24/2017 7:11/24/2017 7:28am Red Cell Distribution Width 13.1 % 11.7-14.4 11/24/2017 7:2017 7:28am Platelet Count 499 x10e3/uL H 140-360 11/24/2017 7:11/24/2017 7: 28am Neutrophils (%) (Auto) 52.7 % 38.7-80.0 11/24/2017 7:11/24/2017 7: 28am Lymphocytes (%) (Auto) 36.3 % 18.0-39.1 11/24/2017 7:11/24/2017 7: 28am Monocytes (%) (Auto) 6.7 % 4.4-11.3 11/24/2017 7:11/24/2017 7: 28am Eosinophils (%) (Auto) 3.1 % 0.0-6.0 11/24/2017 7:11/24/2017 7: 28am Basophils (%) (Auto) 0.5 % 0.0-1.0 11/24/2017 7:11/24/2017 7:28am IM GRANULOCYTES % 0.7 % 0.0-1.0 11/24/2017 7:11/24/2017 7:28am Neutrophils # (Auto) 4.3 2.1-6.9 11/24/2017 7:11/24/2017 7:28am Lymphocytes # (Auto) 2.9 1.0-3.2 11/24/2017 7:11/24/2017 7:28am Monocytes # (Auto) 0.5 0.2-0.8 11/24/2017 7:11/24/2017 7:28am Eosinophils # (Auto) 0.3 0.0-0.4 11/24/2017 7:11/24/2017 7:28am Basophils # (Auto) 0.0 0.0-0.1 11/24/2017 7:11/24/2017 7:28am Absolute Immature Granulocyte (auto 0.06 x10e3/uL 0-0.1 11/24/2017 7: 11/24/2017 7:28am Prothrombin Time 22.0 seconds H 11.9-14.5 11/24/2017 7:11/24/2017 7 :38am Prothromb Time International Ratio 2.08 11/24/2017 7:2017 7:38am Oral Anticoagulant Therapy INR Values: 1. Low Intensity Therapy 1.5 - 2.0 2. Moderate Intensity Therapy 2.0 - 3.0 3. High Intensity Therapy(1) 2.5 - 3.5 4. High Intensity Therapy(2) 3.0 - 4.0 5. Panic Value INR > 5.0 Activated Partial Thromboplast Time 17.5 seconds L 23.8-35.5 11/21/2017 12:00pm 11/21/2017 12:31pm Urine Color YELLOW YELLOW 11/21/2017 12:00pm 11/21/2017 12:32pm Urine Clarity SL CLOUDY CLEAR 11/21/2017 12:00pm 11/21/2017 12:32pm Urine Specific Boomer 1.025 1.010-1.025 11/21/2017 12:00pm 2017 12:32pm Urine pH 5 5 - 7 11/21/2017 12:00pm 11/21/2017 12:32pm Urine Leukocyte Esterase NEGATIVE NEGATIVE 11/21/2017 12:00pm 2017 12:32pm Urine Nitrite NEGATIVE NEGATIVE 11/21/2017 12:00pm 11/21/2017 12: 32pm Urine Protein NEGATIVE NEGATIVE 11/21/2017 12:00pm 11/21/2017 12: 32pm Urine Glucose (UA) NEGATIVE NEGATIVE 11/21/2017 12:00pm 11/21/2017 12 :32pm Urine Ketones NEGATIVE NEGATIVE 11/21/2017 12:00pm 11/21/2017 12: 32pm Urine Urobilinogen 0.2 mg/dL 0.2 - 1 11/21/2017 12:00pm 11/21/2017 12: 32pm Urine Bilirubin NEGATIVE NEGATIVE 11/21/2017 12:00pm 11/21/2017 12: 32pm Urine Blood TRACE H NEGATIVE 11/21/2017 12:00pm 11/21/2017 12:32pm Urine WBC NONE /HPF 0-5 11/21/2017 12:00pm 11/21/2017 12:34pm Urine RBC NONE /HPF 0-5 11/21/2017 12:00pm 11/21/2017 12:34pm Urine Bacteria MANY /HPF H NONE 11/21/2017 12:00pm 11/21/2017 12:34pm Urine Epithelial Cells FEW /LPF NONE 11/21/2017 12:00pm 11/21/2017 12: 34pm Sodium Level 137 mmol/L 136-145 11/22/2017 4:00am 11/22/2017 4:36am Potassium Level 3.8 mmol/L 3.5-5.1 11/22/2017 4:00am 11/22/2017 4:36am Chloride Level 106 mmol/L 98-107 11/22/2017 4:00am 11/22/2017 4:36am Carbon Dioxide Level 22 mmol/L 22-29 11/22/2017 4:0011/22/2017 4: 36am Anion Gap 12.8 mmol/L 8-16 11/22/2017 4:00am 11/22/2017 4:36am Blood Urea Nitrogen 15 mg/dL 7-11/22/2017 4:00am 11/22/2017 4:36am Creatinine 0.77 mg/dL 0.57-1.11 11/22/2017 4:00am 11/22/2017 4:36am BUN/Creatinine Ratio 19 6-25 11/22/2017 4:00am 11/22/2017 4:36am Estimat Glomerular Filtration Rate > 60 ML/MIN 60- 11/22/2017 4:00am 4:36am Ranges were taken from the National Kidney Disease Education Program and the National Kidney Foundation literature. Reference ranges: 60 or greater: Normal 16-59 (for 3 consecutive months): Chronic kidney disease 15 or less: Kidney failure Glucose Level 112 mg/dL 74-118 11/22/2017 4:00am 11/22/2017 4:36am Calcium Level 8.5 mg/dL 8.4-10.2 11/22/2017 4:00am 11/22/2017 4:36am Phosphorus Level 4.5 MG/DL 2.3-4.7 11/22/2017 4:00am 11/22/2017 4:36am Magnesium Level 1.6 MG/DL 1.3-2.1 11/22/2017 4:00am 11/22/2017 4:36am Iron Level 39 ug/dL L 50-170 11/24/2017 7:1311/24/2017 7:52am Total Iron Binding Capacity 343 ug/dL 261-478 11/24/2017 7:132017 7:52am Percent Iron Saturation 11 % L 15-50 11/24/2017 7:1311/24/2017 7: 52am Transferrin 245 mg/dL 180-382 11/24/2017 7:1311/24/2017 7:52am Ferritin 32.43 ng/mL 4.63-204.00 11/24/2017 7:1311/24/2017 8:08am Total Bilirubin 0.5 mg/dL 0.2-1.2 11/22/2017 4:00am 11/22/2017 4:36am Aspartate Amino Transf (AST/SGOT) 13 IU/L 5-34 11/22/2017 4:00am 2017 4:36am Alanine Aminotransferase (ALT/SGPT) 18 IU/L 0-55 11/22/2017 4:00am 4:36am Total Protein 5.7 g/dL # L 6.5-8.1 11/22/2017 4:00am 11/22/2017 4:36am VERIFIED PREVIOUS RESULTS Albumin 2.9 g/dL L 3.5-5.0 11/22/2017 4:00am 11/22/2017 4:36am Globulin 2.8 g/dL 2.3-3.5 11/22/2017 4:00am 11/22/2017 4:36am Albumin/Globulin Ratio 1.0 0.8-2.0 11/22/2017 4:00am 11/22/2017 4: 36am Alkaline Phosphatase 93 IU/L 40-150 11/22/2017 4:00am 11/22/2017 4: 36am B-Type Natriuretic Peptide < 10.0 pg/mL 0-100 11/21/2017 12:00pm 2017 12:37pm Creatine Kinase < 7 IU/L L 29-168 11/22/2017 4:00am 11/22/2017 4:37am Creatine Kinase MB 0.40 ng/mL 0-5.0 11/22/2017 4:00am 11/22/2017 4: 42am Troponin I < 0.001 ng/mL 0-0.300 11/22/2017 4:00am 11/22/2017 4:42am Lipase 26 U/L 8-78 11/21/2017 12:00pm 11/21/2017 12:39pm Vitamin B12 Level 319 pg/mL 213-816 11/24/2017 7:13am 11/24/2017 8: 21am Folate 8.0 ng/mL 7.0-15.4 11/24/2017 7:13am 11/24/2017 8:21am Thyroid Stimulating Hormone (TSH) 2.680 uIU/mL 0.350-4.940 11/21/2017 12 :00pm 11/21/2017 1:00pm Human Chorionic Gonadotropin, Qual NEGATIVE NEGATIVE 11/21/2017 12: 00pm 11/21/2017 12:30pm Procedures Procedure Status Date Provider(s) X-ray of chest, two views Active 06/23/17 NICKOLAS HU Computed tomography of chest with contrast Active 11/21/17 LONNY RENEE Encounters Encounter Location Arrival/Admit Date Discharge/Depart Date Attending Provider Discharged Inpatient [facility] 11/21/17 2:29pm 11/24/17 11:28am LG GOODEN MD Departed Emergency Room [facility] 06/23/17 11:50am 06/23 2:30pm JONG ALEJANDRE MD
[2017-12-04 14:08] LABS: BASOPHILS # (AUTO) 0.1 (0.0-0.1); BASOPHILS % 0.9 % (0.0-1.0); EOSINOPHILS # (AUTO) 0.4 (0.0-0.4); EOSINOPHILS % 4.3 % (0.0-6.0); HEMOGLOBIN 12.8 g/dL (12.0-16.0); LYMPHOCYTES # (AUTO) 3.6 (1.0-3.2); LYMPHOCYTES % 38.3 % (18.0-39.1); MEAN CORPUSCULAR HEMOGLOBIN 28.6 pg (28-32); MEAN CORPUSCULAR HGB CONC 32.8 g/dL (31-35); MEAN CORPUSCULAR VOLUME 87.1 fL (81-99); MONOCYTES # (AUTO) 0.7 (0.2-0.8); MONOCYTES % 7.5 % (4.4-11.3); NEUTROPHILS # (AUTO) 4.5 (2.1-6.9); NEUTROPHILS % 48.5 % (38.7-80.0); PLATELET COUNT 594 x10e3/uL (140-360); RED BLOOD COUNT 4.48 x10e6/uL (3.6-5.1); RED CELL DISTRIBUTION WIDTH 13.2 % (11.7-14.4)
[2017-12-04 14:27] LABS: ALANINE AMINOTRANSFERASE 25 IU/L (0-55); ALBUMIN 3.5 g/dL (3.5-5.0); ALBUMIN/GLOBULIN RATIO 0.8 (0.8-2.0); ALKALINE PHOSPHATASE 106 IU/L (40-150); ANION GAP 16.2 mmol/L (8-16); BLOOD UREA NITROGEN 13 mg/dL (7-26); BUN/CREATININE RATIO 15 (6-25); CALCIUM 9.5 mg/dL (8.4-10.2); CARBON DIOXIDE 25 mmol/L (22-29); CHLORIDE 103 mmol/L (98-107); CREATININE, SERUM 0.87 mg/dL (0.57-1.11); EST GLOMERULAR FILTRATION RATE > 60 ML/MIN (60-); GLUCOSE 76 mg/dL (74-118); SODIUM 139 mmol/L (136-145)
[2017-12-04 14:36] LABS: POTASSIUM 5.2 mmol/L (3.5-5.1)
[2017-12-04 16:19] LABS: INR 3.18; PROTHROMBIN TIME 30.6 seconds (11.9-14.5)
[2017-12-04] MEDS ORDERED: ONDANSETRON HCL INJ 2 MG/ML VIAL IV PRN (16:30)
[2017-12-04] MEDS ORDERED: SODIUM CHLORIDE FLUSH 10 ML SYR INJ PRN (16:30)
[2017-12-04] MEDS ORDERED: TRAMADOL HCL 50 MG TAB PO PRN (16:30)
[2017-12-04 16:56] LABS: BILIRUBIN,URINE NEGATIVE (NEGATIVE); CLARITY,URINE CLOUDY (CLEAR); COLOR,URINE YELLOW (YELLOW); KETONES,URINE NEGATIVE (NEGATIVE); LEUKOCYTE ESTERASE ,URINE NEGATIVE (NEGATIVE); NITRITE,URINE NEGATIVE (NEGATIVE); PROTEIN,URINE DIPSTICK TRACE (NEGATIVE); URINE UROBILINOGEN 0.2 mg/dL (0.2 - 1)
--- OUTSIDE RECORDS SUMMARY | 2017-12-04 17:00 | XMS REPORT | Clinical Summary ---
Author Author [facility] Address Unknown Phone Unavailable Care Team Providers Care [employer] Truck Driver Name Role Phone Shyla Grey MD PCP [...] Chest (11/28/2017 9:54 PM) Specimen Performing Laboratory [facility] [address] [place] [address] ANGIOGRAM PE CHEST CLINICAL INDICATION: [...] 11/28/2017 10:06 PM, with acknowledgement of understanding. [facility]-[id number] Procedure Note Interface, Radiology Results Incoming - [...] 11/28/2017 10:06 PM, with acknowledgement of understanding. [facility]-[id number] * Estimated GFR (11/28/2017 8:55 PM) Component [...] and Americans. Specimen Performing Laboratory Plasma specimen [facility] [employer] [facility] [address] * Prothrombin time with INR, I-Stat (11/28/2017 [...] by repeat analysis Specimen Performing Laboratory Blood [facility] [employer] [facility] [address] * hCG qualitative, urine screen (11/28/2017 8:55 PM) Component Value Ref Range hCG qualitative, urine NegativeComment: Sensitivity of HCG test: 25 Negative mIU/ml Specimen Performing Laboratory [facility] [employer] [facility] [address] * Comprehensive metabolic panel (11/28/2017 8:55 PM) [...] Plasma specimen DEPARTMENT OF PATHOLOGY AND GENOMIC MEDICINE,[facility] [id number] [place] [address] after 12/03/2016 Insurance Payer Benefit Subscriber ID Type Phone Address Plan / Group [facility] xxxxxxxx [facility] [id number] [place] [address]
[2017-12-04 17:06] LABS: BACTERIA,URINE MANY /HPF; EPITHELIAL CELLS,URINE MODERATE /LPF
[2017-12-04 18:55] VITALS: BP 148/62
[2017-12-04 20:00] VITALS: BP 130/71
[2017-12-04] MEDS: HYDROCODONE/APAP 7.5MG-325MG 1 EA TAB PO PRN (22:09)
[2017-12-04 22:11] VITALS: BP 130/71
[2017-12-05] VITALS (8 sets, daily range): BP systolic 100–135; BP diastolic 55–74
[2017-12-05 06:25] LABS: BASOPHILS # (AUTO) 0.1 (0.0-0.1); BASOPHILS % 0.8 % (0.0-1.0); EOSINOPHILS # (AUTO) 0.4 (0.0-0.4); EOSINOPHILS % 4.5 % (0.0-6.0); HEMATOCRIT 30.9 % (34.2-44.1); LYMPHOCYTES # (AUTO) 3.3 (1.0-3.2); LYMPHOCYTES % 42.4 % (18.0-39.1); MEAN CORPUSCULAR HEMOGLOBIN 28.5 pg (28-32); MEAN CORPUSCULAR HGB CONC 32.7 g/dL (31-35); MEAN CORPUSCULAR VOLUME 87.3 fL (81-99); MONOCYTES # (AUTO) 0.8 (0.2-0.8); MONOCYTES % 9.9 % (4.4-11.3); NEUTROPHILS # (AUTO) 3.3 (2.1-6.9); NEUTROPHILS % 41.8 % (38.7-80.0); PLATELET COUNT 499 x10e3/uL (140-360); RED BLOOD COUNT 3.54 x10e6/uL (3.6-5.1); RED CELL DISTRIBUTION WIDTH 13.2 % (11.7-14.4)
[2017-12-05 06:40] LABS: HEMOGLOBIN 10.1 g/dL (12.0-16.0)
[2017-12-05 06:50] LABS: ANION GAP 12.9 mmol/L (8-16); BLOOD UREA NITROGEN 17 mg/dL (7-26); BUN/CREATININE RATIO 24 (6-25); CALCIUM 8.6 mg/dL (8.4-10.2); CARBON DIOXIDE 23 mmol/L (22-29); CHLORIDE 108 mmol/L (98-107); EST GLOMERULAR FILTRATION RATE > 60 ML/MIN (60-); GLUCOSE 103 mg/dL (74-118); POTASSIUM 3.9 mmol/L (3.5-5.1); SODIUM 140 mmol/L (136-145)
[2017-12-05 09:04] LABS: INR 2.68; PROTHROMBIN TIME 26.8 seconds (11.9-14.5)
[2017-12-05] MEDS ORDERED: SODIUM CHLORIDE 0.9% 250ML 250 ML ONE (09:32)
--- NOTE | 2017-12-05 09:52 | History and Physical ---
PCP: Dr. Anshul Grey CHIEF COMPLAINT 1. Abdominal wound adhesions with a previous history of panniculectomy. 2. Over anticoagulation. Patient is a 42-year-old female with bilateral pulmonary embolism with right lower extremity DVT. Previously, was on Coumadin. The patient has a history of panniculectomy on November 08, 2017. The patient had now presented back to the hospital with abdominal wound adhesions and open wound with significant drainage. The patient's INR was also elevated as well. The patient is admitted for wound care and anticoagulant adjustment. PAST MEDICAL HISTORY: Bilateral pulmonary embolism, status post panniculectomy in early October. Morbid obesity, right lower extremity DVT, hypertension, history of panniculectomy as mentioned above. Anticoagulant therapy. SOCIAL HISTORY: Patient does not smoke or use alcohol. No regular drugs. ALLERGIES: NO KNOWN ALLERGIES. HOME MEDICATIONS: Propranolol and warfarin. PHYSICAL EXAMINATION VITAL SIGNS: Temperature is 98, blood pressure 131/63, pulse rate 75, respirations 18. GENERAL: The patient is not in acute distress. She is awake. HEENT: Normocephalic, atraumatic and anicteric. NECK: Supple grossly. PULMONARY: Diminished breath. CARDIOVASCULAR: S1 and S2. Regular rate and rhythm. ABDOMEN: Abdominal wound adhesions. There is some drainage. There is some necrotic tissue inside the wound area. EXTREMITIES: No cyanosis or edema. NEUROLOGIC: No focal deficit. LABORATORY: Sodium is 139, potassium of 5.2, chloride 103, bicarb 25, BUN 13, creatinine 0.8, glucose is 76. Coagulation is 3.14. WBC 7.7, hemoglobin 10.1, hematocrit 31, and platelets is 499,000. IMPRESSION 1. Abdominal wound adhesions with drainage: Possible infection. Will need culture and Gram stain. 2. Anticoagulant therapy. PLAN: Continue with home medications. Adjust the patient's warfarin. Will consult Dr. Cassidy for wound care. May need wound VAC. Will start the patient on antibiotics for now. Will get a deep wound culture. Job#: [id number] [place]
[2017-12-05] MEDS: PIPER-TAZ 3.375 GM 50 ML IV SCH ×3 (10:00→22:39)
[2017-12-05] MEDS: PROPRANOLOL HCL 40 MG TAB PO SCH ×2 (10:00→17:05)
[2017-12-05] MEDS: HYDROCODONE/APAP 7.5MG-325MG 1 EA TAB PO PRN ×2 (10:00→21:45)
[2017-12-05] MEDS: VANCOMYCIN 1GM/NS 250 ML 250 ML IV SCH ×2 (10:28→20:44)
[2017-12-05] MEDS ORDERED: MORPHINE SULFATE 2 MG/ML SYR IV PRN (10:30)
--- NOTE | 2017-12-05 15:59 | Consultation ---
DATE OF CONSULTATION: WOUND CONSULTATION Thank you, Dr. Momin, for asking me to see this patient. HISTORY OF PRESENT ILLNESS: This 42-year-old female patient with history of obesity underwent panniculectomy on November 08, 2017, complicated by PE and DVT. The patient came to the ER with drainage of the surgical site. She had a wound dehiscence with postsurgical seroma, which was drained in the ER. The patient is currently on Coumadin. She is admitted for antibiotic and wound care. She is on Zosyn. PAST MEDICAL HISTORY: Obesity, recent DVT. PERSONAL HISTORY: Denies smoking, alcohol, drugs. REVIEW OF SYSTEMS: All other systems reviewed. Patient denies history of miscarriage. Does not take control or any other hormones. MEDICATIONS: Coumadin, propranolol, hydrocodone, Zosyn, tramadol. ALLERGIES: NONE. PHYSICAL EXAMINATION GENERAL: Weight 294 pounds. Height 66 inches. HEENT: Normal. NECK: No JVD. LUNGS: Clear. ABDOMEN: Soft. Patient has a single postsurgical wound to the right lower quadrant with clear serous drainage present. Wound has dehisced for approximately 4.5 cm and depth of 2 cm. Wound bed is exposed with fat and fascia. LOWER EXTREMITIES: No edema. ASSESSMENT: Postsurgical wound dehiscence with postsurgical seroma. Recent history of pulmonary embolism and deep venous thrombosis. PLAN: Pack the wound with Maxorb AG after removing 2 sutures which were in the middle of the wound opening. Also given order for wound VAC placement. Pack with black foam and KCI wound VAC at 125 continuous negative pressure. Discuss with case management. Arrange for wound VAC as outpatient. Plan discussed with the patient. Job#: [id number]
[2017-12-05] MEDS: WARFARIN SOD 5 MG TAB PO SCH (17:05)
[2017-12-05] MEDS: SENNOSIDES 8.6 MG TAB PO SCH (20:44)
[2017-12-06 00:50] VITALS: BP 115/81
[2017-12-06 04:00] VITALS: BP 113/56
[2017-12-06] MEDS: PIPER-TAZ 3.375 GM 50 ML IV SCH ×3 (05:24→22:27)
[2017-12-06 06:43] LABS: INR 2.32; PROTHROMBIN TIME 23.9 seconds (11.9-14.5)
[2017-12-06 08:16] VITALS: BP 116/56
[2017-12-06] MEDS: PROPRANOLOL HCL 40 MG TAB PO SCH ×2 (08:16→17:01)
[2017-12-06 08:39] VITALS: BP 116/56
[2017-12-06] MEDS: VANCOMYCIN 1GM/NS 250 ML 250 ML IV SCH ×2 (10:31→21:01)
[2017-12-06 12:13] VITALS: BP 133/79
[2017-12-06 16:41] VITALS: BP 129/76
[2017-12-06] MEDS: WARFARIN SOD 5 MG TAB PO SCH (17:01)
[2017-12-06] MEDS: SENNOSIDES 8.6 MG TAB PO SCH (21:01)
[2017-12-06] MEDS: HYDROCODONE/APAP 7.5MG-325MG 1 EA TAB PO PRN (21:45)
[2017-12-07] MEDS: PIPER-TAZ 3.375 GM 50 ML IV SCH ×3 (05:35→21:58)
[2017-12-07 06:19] VITALS: BP 105/69
[2017-12-07 06:39] LABS: INR 2.62; PROTHROMBIN TIME 26.3 seconds (11.9-14.5)
[2017-12-07 08:01] VITALS: BP 112/72
[2017-12-07] MEDS: PROPRANOLOL HCL 40 MG TAB PO SCH ×2 (09:00→17:00)
[2017-12-07] MEDS: VANCOMYCIN 1GM/NS 250 ML 250 ML IV SCH (09:00)
[2017-12-07 12:44] VITALS: BP 121/80
[2017-12-07 16:54] VITALS: BP 113/77
[2017-12-07] MEDS: WARFARIN SOD 5 MG TAB PO SCH (18:15)
[2017-12-07 20:00] VITALS: BP 125/71
[2017-12-07 20:43] VITALS: BP 125/71
[2017-12-07] MEDS: SENNOSIDES 8.6 MG TAB PO SCH (21:58)
[2017-12-08] VITALS (8 sets, daily range): BP systolic 105–181; BP diastolic 45–93
[2017-12-08] MEDS: PIPER-TAZ 3.375 GM 50 ML IV SCH ×3 (05:44→22:00)
[2017-12-08 06:24] LABS: INR 3.1
[2017-12-08] MEDS: PROPRANOLOL HCL 40 MG TAB PO SCH ×2 (09:00→17:00)
[2017-12-08] MEDS ORDERED: WARFARIN SOD 2 MG TAB PO SCH (17:00)
[2017-12-08] MEDS ORDERED: SODIUM CHLORIDE 0.9% 250ML 250 ML ONE (19:29)
[2017-12-08] MEDS: SENNOSIDES 8.6 MG TAB PO SCH (21:00)
[2017-12-09 04:00] VITALS: BP 129/70
[2017-12-09] MEDS: PIPER-TAZ 3.375 GM 50 ML IV SCH (05:38)
[2017-12-09 06:29] LABS: INR 3.83; PROTHROMBIN TIME 35.4 seconds (11.9-14.5)
[2017-12-09 08:00] VITALS: BP 128/86
[2017-12-09 08:40] VITALS: BP 120/80
[2017-12-09] MEDS: PROPRANOLOL HCL 40 MG TAB PO SCH ×2 (09:00→16:38)
[2017-12-09] MEDS: AMPICILLIN SOD 1 GM/NS 50ML 50 ML IV SCH ×2 (10:53→17:10)
[2017-12-09 12:26] VITALS: BP 111/59
[2017-12-09 16:00] VITALS: BP 112/71
[2017-12-09 20:00] VITALS: BP 144/63
[2017-12-09] MEDS: SENNOSIDES 8.6 MG TAB PO SCH (21:05)
[2017-12-10] VITALS: BP 130/67
[2017-12-10] MEDS: AMPICILLIN SOD 1 GM/NS 50ML 50 ML IV SCH ×2 (02:00→10:18)
[2017-12-10 04:00] VITALS: BP 124/58
[2017-12-10 06:32] LABS: INR 2.69; PROTHROMBIN TIME 26.9 seconds (11.9-14.5)
[2017-12-10 08:00] VITALS: BP 103/53
[2017-12-10 08:30] VITALS: BP 103/53
[2017-12-10] MEDS: PROPRANOLOL HCL 40 MG TAB PO SCH (09:00)
[2017-12-10] MEDS ORDERED: AMPICILLIN PO (09:12)
[2017-12-10] MEDS ORDERED: COUMADIN5 MG PO (09:12)
[2017-12-10] MEDS ORDERED: ZOFRAN ODT4 MG SL (09:13)
[2017-12-10 12:00] VITALS: BP 123/88
--- NOTE | 2017-12-10 13:53 | Discharge Summary ---
PCP: Dr. Anshul Grey R&D LAB TECHNICIAN: Dr. Gottlieb FINAL DIAGNOSES 1. Abdominal wound adhesion. 2. Enterococcus abdominal wound infection. 3. Wound VAC placement. 4. Anticoagulant therapy for previous deep vein thrombosis. SUMMARY: This 42-year-old female came in with wound adhesion, open wound with drainage. Culture grew out to be enterococcus sensitive to ampicillin. Patient is stable. She had a wound VAC placement. Arrangement for wound VAC placement for outpatient usage has been arranged. The patient is to follow up with Dr. Gottlieb for wound care. The patient's condition and followup have been explained. She will take Coumadin 5 mg in the evening. The patient's INR today is 2.7. She is stable. She will go home today, and arrangement has been made. Job#: [id number]
== END 2017-12-10 13:27 | disposition home health service (06) | DRG 863 ==
LOC: ER 13:00 → ERHOLD 16:57 → MED/SURG2 17:23
PROVIDERS: ADMIT Internal Medicine; ATTEND Internal Medicine
DX: T81.4XXA Infection following a procedure, initial encounter (principal); T81.31XA Disruption of external operation (surgical) wound, not elsewhere classified, initial encounter; Z68.42 Body mass index [BMI] 45.0-49.9, adult; B95.2 Enterococcus as the cause of diseases classified elsewhere; E66.9 Obesity, unspecified; I10 Essential (primary) hypertension; Z86.718 Personal history of other venous thrombosis and embolism; Z79.01 Long term (current) use of anticoagulants; Z86.711 Personal history of pulmonary embolism
CPT/HCPCS: 36415; 80048; 80053; 80202; 81001; 85025; 85610; 87040; 87071; 87186; 87205; 97605; 99284; J0290; J2270; J2543; J3370; J7050

== ENCOUNTER 2017-12-26 11:05 | Emergency (ER) | payer MEDICARE ==
[~2017-12-26] VITALS: Ht 167.6 cm; Wt 130.6 kg
[~2017-12-26 11:05] MED LIST changes: +AMPICILLIN PO; +ZOFRAN ODT4 MG SL
--- OUTSIDE RECORDS SUMMARY | 2017-12-26 11:07 | XMS REPORT | Continuity of Care Document ---
Author Author [facility] Organization [facility] Address [address] [address] Phone Unavailable Care Team Providers Care Director Of Restaurant Name Role Phone ADRIAN LINDSAY MD PCP Insurance Providers Guarantor Salazar Hennessy Address [address] [place] [address] Email [email or web address] Payer [employer] Medicare Advantage Policy Number [id number] Subscriber's Name Salazar Hennessy Relationship 18 Self / Same As Patient Group Number [id number] Group Name UNEMPLOYED Effective Date 09 Advance Directives Directive Response Recorded Date/Time Does the patient have an advance directive? No 12/05/17 2:27am If yes, is advance directive on file with [facility]? No 12/05/17 2:27am If not on file with [facility] will patient provide a copy? No 12/05/17 2:27am Do you have a Directive to Physician? No 12/04/17 1:36pm Do you have a Medical Power of Dental Internship? No 12/04/17 1:36pm Do you have an out of hospital Do Not Resuscitate Order? No 12/04/17 1:36pm Do you have any special needs we should be aware of? No 12/04/17 1:36pm Do you have a support person here with you today? Yes 12/04/17 1:36pm Did patient receive Notice of Privacy Practices? Yes 12/04/17 1:36pm Did patient receive patient rights and responsibilities? Yes 12/04/17 1:36pm Problems Medical Problem Onset Date Status Acute deep vein thrombosis (DVT) Unknown Cellulitis Unknown Acute Chest pressure Unknown Chest wall pain Unknown Acute Diverticulitis 03/01/2015 Acute Diverticulitis large intestine 03/01/2015 Acute Dyspnea Unknown Leg pain, left Unknown Musculoskeletal strain Unknown Acute Obesity Unknown Pressure in chest Unknown Pulmonary embolism, bilateral Unknown Seroma complicating procedure Unknown Soft tissue infection Unknown Acute Surgical wound dehiscence Unknown UTI (urinary tract infection) 03/01/2015 Acute Medications Current Home Medications Medication Dose Units Route Directions Days Qty Instructions Start Date Ampicillin 500 Mg Oral Three Times A Day Ondansetron (Zofran Odt) 4 Mg Tab.rapdis 4 Mg Sublingual Every 4 Hours Propranolol Hcl 40 Mg Tablet 40 Mg Oral Twice A Day 60 Tab Warfarin Sodium (Coumadin) 5 Mg Tablet 5 Mg Oral Today At 5:00PM 7 Tab Past Home Medications Medication Directions Ordered Status [id number] 325 Mg Tab, 650 Mg Oral Every [...] Mg Oral Every 6 Hours 03/02/15 Discontinued Warfarin Sodium (Coumadin) 2.5 Mg Tablet, 2.5 Mg Oral Today At 5:00PM Discontinued Warfarin Sodium (Coumadin) 5 Mg Tablet, 5 Mg Oral Today At 5:00PM Discontinued Social History Social History Problem Response Recorded Date/Time Onset Date Status Hx Psychiatric Problems No 12/05/2017 2:27am Not Applicable Not Applicable Hx Eating Disorder No 12/05/2017 2:27am Not Applicable Not Applicable Hx Substance Use Disorder No 12/05/2017 2:27am Not Applicable Not Applicable Hx Depression No 12/05/2017 2:27am Not Applicable Not Applicable Hx Alcohol Use No 12/05/2017 2:27am Not Applicable Not Applicable Hx Physical Abuse No 12/05/2017 2:27am Not Applicable Not Applicable Hospital Discharge Instructions No hospital discharge instruction information available. Plan of Care Discharge Date 12/10/17 1:27pm Disposition HOME, SELF-CARE Instructions/Education Provided Cellulitis Wound Care (General) Prescriptions See Medication Section Additional Instructions/Education FOLLOW UP WITH [facility] IN ONE WEEK FOLLOW UP WITH [facility] WOUND [facility]ARE CL[facility] Functional Status Query Response Date Recorded Assistive Devices None December 05, 2017 2:22am Ambulation Ability Independent December 05, 2017 2:22am Toileting Ability Independent December 09, 2017 9:00am Allergies, Adverse Reactions, Alerts No known allergies. Immunizations No immunization information available. Vital Signs Acute Vital Signs Vital Response Date/Time Temperature (Fahrenheit) 96.4 degrees F (97.6 - 99.5) 12/10/2017 12:00pm Pulse Pulse Rate (adult) 81 bpm (60 - 90) 12/10/2017 12:00pm Respiratory Rate 20 bpm (12 - 24) 12/10/2017 12:00pm Blood Pressure 123/88 mm Hg 12/10/2017 12:00pm Height 5 ft 6 in 12/04/2017 1:18pm Weight 295.06 lb 12/09/2017 1:33am Body Mass Index 47.6 kg/m^2 12/09/2017 1:33am Results Laboratory Results Test Name Result Units Flags Reference Collection Date/Time Result Date/ Time Comments Urine Test NEGATIVE NEGATIVE 06/23/2017 12:45pm 06/23/2017 1:43pm Activated Partial Thromboplast Time 17.5 seconds L 23.8-35.5 11/21/2017 12:00pm 11/21/2017 12:31pm Phosphorus Level 4.5 MG/DL 2.3-4.7 11/22/2017 4:00am 11/22/2017 4:36am Magnesium Level 1.6 MG/DL 1.3-2.1 11/22/2017 4:00am 11/22/2017 4:36am Iron Level 39 ug/dL L 50-170 11/24/2017 7:13am 11/24/2017 7:52am Total Iron Binding Capacity 343 ug/dL 261-478 11/24/2017 7:13am 2017 7:52am Percent Iron Saturation 11 % L 15-50 11/24/2017 7:13am 11/24/2017 7: 52am Transferrin 245 mg/dL 180-382 11/24/2017 7:13am 11/24/2017 7:52am Ferritin 32.43 ng/mL 4.63-204.00 11/24/2017 7:13am 11/24/2017 8:08am B-Type Natriuretic Peptide < 10.0 pg/mL 0-100 [...] NEGATIVE NEGATIVE 11/21/2017 12: 00pm 11/21/2017 12:30pm White Blood Count 7.78 x10e3/uL 4.8-10.8 12/05/2017 5:5212/05/2017 6 :40am Red Blood Count 3.54 x10e6/uL L 3.6-5.1 12/05/2017 5:52am 12/05/2017 6: 40am Hemoglobin 10.1 g/dL L 12.0-16.0 12/05/2017 5:5212/05/2017 6:40am Hematocrit 30.9 % L 34.2-44.1 12/05/2017 5:52am 12/05/2017 6:40am Mean Corpuscular Volume 87.3 fL 81-99 12/05/2017 5:5212/05/2017 6: 40am Mean Corpuscular Hemoglobin 28.5 pg 28-32 12/05/2017 5:52am 12/05/2017 6:40am Mean Corpuscular Hemoglobin Concent 32.7 g/dL 31-35 12/05/2017 5:5212/05/2017 6:40am Red Cell Distribution Width 13.2 % 11.7-14.4 12/05/2017 5:522017 6:40am Platelet Count 499 x10e3/uL H 140-360 12/05/2017 5:5212/05/2017 6: 40am Neutrophils (%) (Auto) 41.8 % 38.7-80.0 12/05/2017 5:52am 12/05/2017 6: 40am Lymphocytes (%) (Auto) 42.4 % H 18.0-39.1 12/05/2017 5:5212/05/2017 6 :40am Monocytes (%) (Auto) 9.9 % 4.4-11.3 12/05/2017 5:52am 12/05/2017 6: 40am Eosinophils (%) (Auto) 4.5 % 0.0-6.0 12/05/2017 5:52am 12/05/2017 6: 40am Basophils (%) (Auto) 0.8 % 0.0-1.0 12/05/2017 5:52am 12/05/2017 6:40am IM GRANULOCYTES % 0.6 % 0.0-1.0 12/05/2017 5:52am 12/05/2017 6:40am Neutrophils # (Auto) 3.3 2.1-6.9 12/05/2017 5:52am 12/05/2017 6:40am Lymphocytes # (Auto) 3.3 H 1.0-3.2 12/05/2017 5:52am 12/05/2017 6: 40am Monocytes # (Auto) 0.8 0.2-0.8 12/05/2017 5:52am 12/05/2017 6:40am Eosinophils # (Auto) 0.4 0.0-0.4 12/05/2017 5:52am 12/05/2017 6:40am Basophils # (Auto) 0.1 0.0-0.1 12/05/2017 5:52am 12/05/2017 6:40am Absolute Immature Granulocyte (auto 0.05 x10e3/uL 0-0.1 12/05/2017 5: 52am 12/05/2017 6:40am Prothrombin Time 26.9 seconds H 11.9-14.5 12/10/2017 5:43am 12/10/2017 6 :38am Prothromb Time International Ratio 2.69 12/10/2017 5:43am 2017 6:38am Oral Anticoagulant Therapy INR Values: 1. Low Intensity Therapy 1.5 - 2.0 2. Moderate Intensity Therapy 2.0 - 3.0 3. High Intensity Therapy(1) 2.5 - 3.5 4. High Intensity Therapy(2) 3.0 - 4.0 5. Panic Value INR > 5.0 Urine Color YELLOW YELLOW 12/04/2017 2:00pm 12/04/2017 4:57pm Urine Clarity CLOUDY H CLEAR 12/04/2017 2:00pm 12/04/2017 4:57pm Urine Specific [place] 1.015 1.010-1.025 12/04/2017 2:00pm 2017 4:57pm Urine pH 5 5 - 7 12/04/2017 2:00pm 12/04/2017 4:57pm Urine Leukocyte Esterase NEGATIVE NEGATIVE 12/04/2017 2:00pm 2017 4:57pm Urine Nitrite NEGATIVE NEGATIVE 12/04/2017 2:00pm 12/04/2017 4:57pm Urine Protein TRACE H NEGATIVE 12/04/2017 2:00pm 12/04/2017 4:57pm Urine Glucose (UA) NEGATIVE NEGATIVE 12/04/2017 2:00pm 12/04/2017 4: 57pm Urine Ketones NEGATIVE NEGATIVE 12/04/2017 2:00pm 12/04/2017 4:57pm Urine Urobilinogen 0.2 mg/dL 0.2 - 1 12/04/2017 2:00pm 12/04/2017 4: 57pm Urine Bilirubin NEGATIVE NEGATIVE 12/04/2017 2:00pm 12/04/2017 4: 57pm Urine Blood TRACE H NEGATIVE 12/04/2017 2:00pm 12/04/2017 4:57pm Urine WBC 6-10 /HPF H 0-5 12/04/2017 2:00pm 12/04/2017 5:06pm Urine RBC 11-20 /HPF H 0-5 12/04/2017 2:00pm 12/04/2017 5:06pm Urine Bacteria MANY /HPF H NONE 12/04/2017 2:00pm 12/04/2017 5:06pm Urine Epithelial Cells MODERATE /LPF NONE 12/04/2017 2:00pm 12/04/2017 5:06pm Sodium Level 140 mmol/L 136-145 12/05/2017 5:52am 12/05/2017 7:03am Potassium Level 3.9 mmol/L # 3.5-5.1 12/05/2017 5:52am 12/05/2017 7:03am Chloride Level 108 mmol/L H 98-107 12/05/2017 5:52am 12/05/2017 7:03am Carbon Dioxide Level 23 mmol/L 22-29 12/05/2017 5:52am 12/05/2017 7: 03am Anion Gap 12.9 mmol/L 8-16 12/05/2017 5:52am 12/05/2017 7:03am Blood Urea Nitrogen 17 mg/dL 7-26 12/05/2017 5:52am 12/05/2017 7:03am Creatinine 0.70 mg/dL 0.57-1.11 12/05/2017 5:52am 12/05/2017 7:03am BUN/Creatinine Ratio 24 6-25 12/05/2017 5:52am 12/05/2017 7:03am Estimat Glomerular Filtration Rate > 60 ML/MIN 60- 12/05/2017 5:52am 7:03am Ranges were taken from the National Kidney Disease Education Program and the National Kidney Foundation literature. Reference ranges: 60 or greater: Normal 16-59 (for 3 consecutive months): Chronic kidney disease 15 or less: Kidney failure Glucose Level 103 mg/dL 74-118 12/05/2017 5:52am 12/05/2017 7:03am Calcium Level 8.6 mg/dL 8.4-10.2 12/05/2017 5:52am 12/05/2017 7:03am Total Bilirubin 0.8 mg/dL 0.2-1.2 12/04/2017 1:00pm 12/04/2017 2:36pm Aspartate Amino Transf (AST/SGOT) 35 IU/L H 5-34 12/04/2017 1:00pm 12/04 2:36pm Alanine Aminotransferase (ALT/SGPT) 25 IU/L 0-55 12/04/2017 1:00pm 12/2017 2:36pm Total Protein 8.1 g/dL 6.5-8.1 12/04/2017 1:00pm 12/04/2017 2:36pm Albumin 3.5 g/dL 3.5-5.0 12/04/2017 1:00pm 12/04/2017 2:36pm Globulin 4.6 g/dL H 2.3-3.5 12/04/2017 1:00pm 12/04/2017 2:36pm Albumin/Globulin Ratio 0.8 0.8-2.0 12/04/2017 1:00pm 12/04/2017 2: 36pm Alkaline Phosphatase 106 IU/L 40-150 12/04/2017 1:00pm 12/04/2017 2: 36pm Vancomycin Level Trough 7.0 ug/mL 5.0-10.0 12/06/2017 9:15am 2017 10:18am Microbiology Results Procedure Source Organism/Result Collection Date/Time Result Date/Time Result Status Blood Culture Blood NO GROWTH AFTER 5 DAYS, FINAL REPORT 12/04/2017 1:20pm 12/09/2017 2:04pm Final Wound Culture Abdomen ENTEROCOCCUS FAECALIS 12/05/2017 10:01am 12/08/2017 12:37pm Final Procedures Procedure Status Date Provider(s) X-ray of chest, two views Active 06/23/17 NICKOLAS HU Computed tomography of chest with contrast Active 11/21/17 LONNY RENEE Encounters Encounter Location Arrival/Admit Date Discharge/Depart Date Attending Provider Discharged Inpatient [facility] 12/04/17 4:57pm 12/10/17 1:27pm LG GOODEN MD Discharged [facility]patient [facility] 11/21/17 2:29pm 11/24/17 11:28am LG GOODEN MD Departed Emergency [facility] 06/23/17 11:50am 06/23 2:30pm JONG ALEJANDRE MD
--- OUTSIDE RECORDS SUMMARY | 2017-12-26 11:07 | XMS REPORT | Clinical Summary ---
Author Author [facility] Address Unknown Phone Unavailable Care Team Providers Care Spindle Sander Name Role Phone Shyla Grey MD PCP [...] by mouth 20 tablet 0 11/29/19 12/07/19 (TYLENOL WITH CODEINE #3) every 6 (six) hours as 18 18 300-30 mg per tablet needed for moderate pain for up to 20 doses. Active Problems Not on file Encounters Date Type Specialty Care Team Description 11/28/2017 Hospital Radiology Amandeep Krause, Encounter 11/28/2017 Emergency Emergency Medicine Amandeep Krause, Other chronic pulmonary MD embolism without acute cor pulmonale (Primary Dx) after 12/25/2016 Social History Tobacco Use Types Packs/Day Years [...] Chest (11/28/2017 9:54 PM) Specimen Performing Laboratory [facility] [address] [place] [address] ANGIOGRAM PE CHEST CLINICAL INDICATION: [...] 11/28/2017 10:06 PM, with acknowledgement of understanding. [facility]-[id number] Procedure Note Interface, Radiology Results Incoming - [...] 11/28/2017 10:06 PM, with acknowledgement of understanding. [id number] * Estimated GFR (11/28/2017 8:55 PM) Component [...] and Americans. Specimen Performing Laboratory Plasma specimen [facility] [address] * Prothrombin time with INR, I-Stat (11/28/2017 [...] by repeat analysis Specimen Performing Laboratory Blood [facility] [address] * hCG qualitative, urine screen (11/28/2017 8:55 PM) Component Value Ref Range hCG qualitative, urine NegativeComment: Sensitivity of HCG test: 25 Negative mIU/ml Specimen Performing Laboratory [facility] [address] * Comprehensive metabolic panel (11/28/2017 8:55 PM) [...] Plasma specimen DEPARTMENT OF PATHOLOGY AND GENOMIC MEDICINE,[facility] [address] [place] [address] after 12/25/2016 Insurance Payer Benefit Subscriber ID Type Phone Address Plan / Group [facility] xxxxxxxx [facility] [id number] [place] [address]
[2017-12-26 12:32] LABS: BASOPHILS # (AUTO) 0.1 (0.0-0.1); BASOPHILS % 0.5 % (0.0-1.0); EOSINOPHILS # (AUTO) 0.3 (0.0-0.4); HEMATOCRIT 35.5 % (34.2-44.1); HEMOGLOBIN 11.8 g/dL (12.0-16.0); LYMPHOCYTES # (AUTO) 3.5 (1.0-3.2); LYMPHOCYTES % 37.9 % (18.0-39.1); MEAN CORPUSCULAR HGB CONC 33.2 g/dL (31-35); MEAN CORPUSCULAR VOLUME 84.3 fL (81-99); MONOCYTES # (AUTO) 0.8 (0.2-0.8); MONOCYTES % 8.2 % (4.4-11.3); NEUTROPHILS # (AUTO) 4.6 (2.1-6.9); NEUTROPHILS % 50.1 % (38.7-80.0); PLATELET COUNT 440 x10e3/uL (140-360); RED BLOOD COUNT 4.21 x10e6/uL (3.6-5.1); RED CELL DISTRIBUTION WIDTH 13.9 % (11.7-14.4)
[2017-12-26 12:51] LABS: INR 2.57; PROTHROMBIN TIME 25.9 seconds (11.9-14.5)
[2017-12-26] MEDS ORDERED: DIATRIZOATE MEGL/DIATRIZOA SOD 30 ML BTL PO ONE (13:36)
[2017-12-26 13:41] LABS: ALANINE AMINOTRANSFERASE 19 IU/L (0-55); ALBUMIN 3.1 g/dL (3.5-5.0); ALBUMIN/GLOBULIN RATIO 0.8 (0.8-2.0); ALKALINE PHOSPHATASE 81 IU/L (40-150); ANION GAP 12.1 mmol/L (8-16); BLOOD UREA NITROGEN 14 mg/dL (7-26); BUN/CREATININE RATIO 20 (6-25); CARBON DIOXIDE 21 mmol/L (22-29); CHLORIDE 109 mmol/L (98-107); CREATININE, SERUM 0.69 mg/dL (0.57-1.11); EST GLOMERULAR FILTRATION RATE > 60 ML/MIN (60-); GLUCOSE 92 mg/dL (74-118); POTASSIUM 4.1 mmol/L (3.5-5.1); SODIUM 138 mmol/L (136-145)
[2017-12-26] MEDS ORDERED: ONDANSETRON HCL 4 MG ORAL DISINTEGRATING TAB PO ONE (14:15)
--- NOTE | 2017-12-26 15:57 | Diagnostic Imaging Report ---
PROCEDURE: CT ABDOMEN AND PELVIS WITH CONTRAST TECHNIQUE: The abdomen and pelvis were scanned utilizing a multidetector helical scanner from the diaphragm to the lesser trochanter after the IV administration of 100 cc of Isovue 370 and the oral administration of 450 mL of Gastrografin/water. Coronal and sagittal multiplanar reformations were obtained. COMPARISON: CT of the abdomen and pelvis from 09/24/2015. INDICATIONS: WOUND LEAKING, SEROMA FINDINGS: LOWER THORAX: Normal. HEPATOBILIARY: No focal hepatic lesions. No biliary ductal dilatation. SPLEEN: No splenomegaly. PANCREAS: No focal masses or ductal dilatation. ADRENALS: No adrenal nodules. KIDNEYS/URETERS: No hydronephrosis, stones, or solid mass lesions. PELVIC ORGANS/BLADDER: Bilateral tubal ligation clips. PERITONEUM / RETROPERITONEUM: No free air or fluid. LYMPH NODES: No lymphadenopathy. VESSELS: Unremarkable. GI TRACT: No distention or wall thickening. The appendix is normal. BONES AND SOFT TISSUES: There is a long, transverse, lower abdominal incision with extensive foci of gas density, presumably related to prior panniculectomy. No subcutaneous/soft tissue fluid collections are identified. No definite communication with the peritoneal cavity is identified. No fistula is identified. IMPRESSION: Long, transverse, lower abdominal incision with extensive foci of subcutaneous gas density, presumably related to prior panniculectomy. No subcutaneous fluid collections are identified. No fistulas or other communication with the peritoneal cavity. Dictated by: Franklin Sims M.D. on 12/26/2017 at 15:58 Electronically approved by: Franklin Sims M.D. on 12/26/2017 at 15:58
[2017-12-26 16:37] VITALS: BP 102/70
== END 2017-12-26 17:23 | disposition home or self-care (01) ==
LOC: ER 11:05
DX: T81.32XA Disruption of internal operation (surgical) wound, not elsewhere classified, initial encounter (principal)
CPT/HCPCS: 36415; 74177; 80053; 85025; 85610; 85730; 99284

== ENCOUNTER 2018-03-29 14:15 | Emergency (ER) | payer MEDICARE | END 2018-03-29 15:38 | disposition short-term general hospital (02) | LOC: ER 15:33 | DX: K57.32 Diverticulitis of large intestine without perforation or abscess without bleeding (principal) ==

== ENCOUNTER 2018-03-29 14:50 | Emergency (ER) | payer MEDICARE | END 2018-03-29 19:15 | disposition home or self-care (01) | LOC: FSED 14:50 | DX: R10.32 Left lower quadrant pain (principal); R11.2 Nausea with vomiting, unspecified; K57.32 Diverticulitis of large intestine without perforation or abscess without bleeding; I10 Essential (primary) hypertension; Z86.718 Personal history of other venous thrombosis and embolism | CPT/HCPCS: 74177; 80048; 80076; 81003; 85025; 99284 ==

== ENCOUNTER 2018-07-15 08:23 | Inpatient (IN) | payer MEDICARE ==
[~2018-07-15] VITALS: Ht 165.1 cm; Wt 135.8 kg
--- OUTSIDE RECORDS SUMMARY | 2018-07-15 08:26 | XMS REPORT | Clinical Summary ---
Author Author [facility] Address Unknown Phone Unavailable Care Team Providers Care Envelope Fold Operator Name Role Phone Anshul Grey MD PCP Allergies No Known Allergies Medications End Date Status Medication Sig Dispensed Refills Start Date Active mupirocin (BACTROBAN) 2 % KILEY EXT AA 0 ointment TID FOR 14 8 DAYS Active propranolol (INDERAL) 40 TK 1 T PO BID 0 MG tablet 8 Active warfarin (COUMADIN) 6 MG TK 1 T PO 0 tablet ALONG WITH 1 8 MG TOTAL DOSE OF 7 MG D Active zolpidem (AMBIEN) 5 MG TK 1 T PO QD 0 tablet HS PRN 8 12/06/2017 acetaminophen-codeine Take 1-2 20 tablet 0 (TYLENOL WITH CODEINE #3) tablets by 8 300-30 mg per tablet mouth every 6 (six) hours as needed for moderate pain for up to 20 doses. Active Problems Not on file Encounters Care Team Description Date Type Specialty Amandeep Krause MD 11/28/2017 Hospital Radiology Encounter Amandeep Krause MD Other chronic pulmonary embolism without acute cor pulmonale (Primary Dx) 11/28/2017 Emergency Emergency Medicine after 07/14/2017 Social History Date Tobacco Use Types Packs/Day Years Used Never Smoker Smokeless Tobacco: Never Used Alcohol Use Drinks/Week oz/Week Comments No Sex Assigned at Date Recorded Not on file Industry Job Start Date Occupation Not on file Not on file Not on file Travel End Travel History Travel Start No recent travel history available. Last Filed Vital Signs Time Taken Vital Sign Reading 11/28/2017 10:40 PM CDT Blood Pressure 112/82 11/28/2017 10:40 PM CDT Pulse 87 11/28/2017 10:40 PM CDT Temperature 36.6 C (97.8 F) 11/28/2017 10:40 PM CDT Respiratory Rate 20 11/28/2017 10:40 PM CDT Oxygen Saturation 97% - Inhaled Oxygen - Concentration - Weight - 11/28/2017 7:18 PM CDT Height 165.1 cm (5' 5") - Body Mass Index - Plan of Treatment Health Maintenance Due Date Last Done Comments CERVICAL CANCER SCREENING 1997 INFLUENZA VACCINE 04/01/2018 Procedures Comments Procedure Name Priority Date/Time Associated Diagnosis CT ANGIOGRAM PE CHEST STAT 11/28/2017 9:54 PM CDT HCG QUALITATIVE, URINE STAT 11/28/2017 SCREEN 8:55 PM CDT ZZESTIMATED GFR STAT 11/28/2017 8:55 PM CDT PROTHROMBIN TIME WITH STAT 11/28/2017 INR, I-STAT 8:55 PM CDT COMPREHENSIVE METABOLIC STAT 11/28/2017 PANEL 8:55 PM CDT after 07/14/2017 Results * CT Angiogram Pe Chest (11/28/2017 9:54 PM CDT) Narrative Performed At CT ANGIOGRAM PE CHEST [facility] CLINICAL INDICATION: concern for pe COMPARISON:None. TECHNIQUE:CT [...] 11/28/2017 10:06 PM, with acknowledgement of understanding. [facility]-[id number] Procedure Note [facility], Radiology Results Incoming - 11/28/2017 10:11 PM [...] 11/28/2017 10:06 PM, with acknowledgement of understanding. [id number] Performing Organization Address City/State/Zipcode Phone Number [facility] [phone] [place] [address] * Estimated GFR (11/28/2017 8:55 PM CDT) GFR Non Af Amer >90 mL/min/1.73 m2 [facility] GFR Af Amer >90 mL/min/1.73 m2 DEPARTMENT OF Comment: PATHOLOGY AND Chronic kidney disease: <60 GENOMIC mL/min/1.73m2 [facility] Kidney failure: <15 EMERGENCY CARE mL/min/1.73m2 CENTER The estimated GFR is calculated from the IDMS-traceable Modification of Diet in Renal Disease Equation. The accuracy of the calculation is poor when the creatinine is normal. Calculated values >90 mL/min/1.73m2 are not reported. This equation has not been validated in children (<18 years), women, the elderly (>70 years), or ethnic groups other than Caucasians and Americans. Specimen Plasma specimen Performing Organization Address [facility] Phone Number [address] [address] PATHOLOGY AND [facility] * Prothrombin time with INR, I-Stat (11/28/2017 8:55 PM CDT) POC prothrombin time 59.0 (H) 11.0 - 14.5 sec [facility] POC INR 5.3 (HH) DEPARTMENT OF Comment: PATHOLOGY AND The International Normalized GENOMIC Ratio (INR) is a therapeutic [facility] monitoring tool for patients EMERGENCY CARE who are stable on oral CENTER vitamin K antagonist therapy. An INR of 2.0-3.0 is suggested for deep vein thrombosis/pulmonary embolism. An INR of 2.5-3.5 (high dose) is suggested for some patients with mechanical heart valves) Critical result reported to Dr.Angel Krause at21:18 on11/28/2017 . Verified result by repeat analysis Specimen Blood Performing Organization Address City/State/Zipcode Phone Number DEPARTMENT OF [address] [place] [address] [address] [place] [address] [facility] * hCG qualitative, urine screen (11/28/2017 8:55 PM CDT) hCG qualitative, urine NegativeComment: Sensitivity Negative DEPARTMENT OF HCG test: 25 mIU/ml [facility] Performing Organization Address City/[facility]/Zipcode Phone Number [address] [place] [address] [facility] * Comprehensive metabolic panel (11/28/2017 8:55 PM CDT) Sodium 137 128 - 145 mEq/L [facility] Potassium 4.7 3.6 - 5.1 mEq/L [facility] CO2 28 18 - 33 mEq/L [facility] Chloride 104 98 - 108 mEq/L [facility] Glucose 103 73 - 118 mg/dL [facility] Calcium 9.1 8.0 - 10.3 mg/dL [facility] BUN 12 7 - 22 mg/dL [facility] Creatinine 0.7 0.6 - 1.2 mg/dL [facility] Alkaline phosphatase 100 42 - 141 U/L [facility] ALT 43 10 - 47 U/L [facility] AST 33 11 - 38 U/L [facility] Total bilirubin 0.6 0.2 - 1.6 mg/dL [facility] Albumin 3.4 3.3 - 5.5 g/dL [facility] Protein 6.7 6.4 - 8.1 g/dL [facility] Anion gap 5 (L) 7 - 15 mEq/L DEPARTMENT OF Comment: PATHOLOGY AND Starting from November GENOMIC , anion gap calculation [facility] no longer incorporates EMERGENCY CARE potassium. Please note the CENTER change. A/G ratio 1.03 0.70 - 3.80 [facility] Specimen Plasma specimen Performing Organization Address City/State/Zipcode Phone Number [place] [phone] [place] [address] PATHOLOGY AND GENOMIC MEDICINE,[facility] after 07/14/2017 Insurance Payer Benefit Subscriber ID Type Phone Address Plan / Group [facility] xxxxxxxx [facility] Advance Directives Patient has advance care planning documents on file. For more information, judy gonzalez contact: Otilio Alexander [address] [place] [address]
[2018-07-15] MEDS ORDERED: KETOROLAC TROMETHAMINE 30 MG/ML VIAL IV STA (08:50)
[2018-07-15] MEDS ORDERED: GABAPENTIN300 MG PO (09:18)
[2018-07-15] MEDS ORDERED: NORCO 10-325 T1 EACH (09:19)
[2018-07-15] MEDS ORDERED: ALPRAZOLAM1 MG PO (09:20)
--- NOTE | 2018-07-15 10:16 | Diagnostic Imaging Report ---
PROCEDURE:CT ABD/PEL WITH CONTRAST-HOPD COMPARISON:12/26/2017. INDICATIONS:abdomen pain Technique: Helical axial CT images of the abdomen and pelvis were acquired from the lung bases through the lesser trochanters after the intravenous administration of 100 cc Isovue-370. Coronal and sagittal reformatted images were available for review. FINDINGS: Lung bases:Unremarkable. Liver: No focal hepatic lesion or intrahepatic biliary ductal dilatation. Gallbladder: No wall thickening or calculi. Punctate calcification adjacent to the left side of the gallbladder wall may represent a mesenteric lymph node or fat necrosis. Spleen: No splenomegaly or focal splenic lesion Pancreas: No focal mass or pancreatic ductal dilatation. No peripancreatic inflammation. Adrenals: No nodules Kidneys: No hydronephrosis. No gross mass lesion. No calculi. Pelvic organs/bladder: The urinary bladder is incompletely distended but otherwise unremarkable. Uterus is anteflexed and appears normal. Tubal ligation devices. No adnexal mass. Retroperitoneum-peritoneum: No ascites or pneumoperitoneum Blood vessels: The abdominal aorta, major branch vessels, and iliac arterial systems are patent, without aneurysmal dilatation. The celiac axis remains ectatic, measuring 1.2 cm in diameter. The portal vein, splenic vein, and central superior mesenteric vein are patent. Lymph nodes: No pelvic sidewall, retroperitoneal, or mesenteric lymphadenopathy. GI tract: Multiple large bowel diverticula are noted, at highest concentration along the sigmoid. There is an approximately 10 cm segment of sigmoid wall thickening, and extensive mesenteric inflammatory change examplified on series 2 image 71. Small foci of extraluminal gas are identified, without greta pneumoperitoneum or drainable fluid collection. The appendix is normal. No small bowel dilatation to suggest obstruction. Soft tissues: Postsurgical changes of the anterior abdominal wall superficial fascia and subcutaneous fat. Bones: No osseous destructive lesions. CONCLUSION: Sigmoid diverticulitis without greta perforation or drainable fluid collection. Dictated by: Ronnie Cespedes M.D. on 07/15/2018 at 10:25 Electronically approved by: Ronnie Cespedes M.D. on 07/15/2018 at 10:25
[2018-07-15] MEDS ORDERED: HYDROMORPHONE 1MG/1ML INJ IV PRN (10:30)
[2018-07-15] MEDS: PROMETHAZINE 12.5MG/ NACL 0.9% 50 ML IV PRN ×2 (10:30→18:24)
[2018-07-15] MEDS ORDERED: PROMETHAZINE HCL (IM) 25 MG/ML VIAL IV PRN (10:30)
[2018-07-15] MEDS ORDERED: LEVOFLOXACIN 500MG/D5W 100ML IV SCH (10:30)
[2018-07-15] MEDS ORDERED: LEVOFLOXACIN 750MG/D5W 150ML 150 ML IV STA (10:38)
[2018-07-15] MEDS ORDERED: MORPHINE SULFATE 2 MG/ML SYR IV STA ×2 (10:38→11:31)
[2018-07-15] MEDS ORDERED: METRONIDAZOLE 500MG/NS 100ML 100 ML IV ONE (10:45)
[2018-07-15] MEDS ORDERED: PROMETHAZINE 12.5MG/ NACL 0.9% 12.5 MG/50 ML BAG IV ONE (10:45)
[2018-07-15] MEDS ORDERED: METRONIDAZOLE 500MG/NS 100ML IV SCH (12:00)
--- OUTSIDE RECORDS SUMMARY | 2018-07-15 12:43 | XMS REPORT | Clinical Summary ---
Author Author Yañez Mosque Organization [place] [facility] Address Unknown Phone Unavailable Care Team Providers Care Wash Crew Person Name Role Phone Anshul Grey MD PCP [...] 11/28/2017 10:06 PM, with acknowledgement of understanding. [facility]-[id number] Procedure Note [facility], Radiology Results Incoming - 11/28/2017 10:11 PM [...] 11/28/2017 10:06 PM, with acknowledgement of understanding. [facility]-[id number] Performing Organization Address City/State/Zipcode Phone Number [facility] [address] [place] [address] * Estimated GFR (11/28/2017 8:55 PM CDT) GFR Non Af Amer >90 mL/min/1.73 m2 [facility] GFR Af Amer >90 mL/min/1.73 m2 DEPARTMENT OF Comment: PATHOLOGY AND Chronic kidney disease: <60 GENOMIC mL/min/1.73m2 [facility] Kidney failure: <15 EMERGENCY CARE mL/min/1.73m2 CENTER [...] Americans. Specimen Plasma specimen Performing Organization Address [facility] Hospital[facility] Phone Number [address] [address] PATHOLOGY AND [facility] * Prothrombin time with INR, I-Stat (11/28/2017 8:55 PM CDT) POC prothrombin time 59.0 (H) 11.0 - 14.5 sec [facility] POC INR 5.3 (HH) DEPARTMENT OF Comment: PATHOLOGY AND The International Normalized GENOMIC Ratio (INR) is a therapeutic [facility] monitoring tool for patients EMERGENCY CARE who [...] Organization Address City/State/Zipcode Phone Number DEPARTMENT OF [address] [place] [address] [address] [place] [address] [facility] * hCG qualitative, urine screen (11/28/2017 8:55 PM CDT) hCG qualitative, urine NegativeComment: Sensitivity Negative DEPARTMENT OF HCG test: 25 mIU/ml [facility] Performing Organization Address City/[facility]/Zipcode Phone Number [address] [place] [address] [facility] * Comprehensive metabolic panel (11/28/2017 8:55 PM CDT) Sodium 137 128 - 145 mEq/L [facility] Potassium 4.7 3.6 - 5.1 mEq/L [facility] CO2 28 18 - 33 mEq/L [facility] Chloride 104 98 - 108 mEq/L [facility] Glucose 103 73 - 118 mg/dL [facility] Calcium 9.1 8.0 - 10.3 mg/dL [facility] BUN 12 7 - 22 mg/dL [facility] Creatinine 0.7 0.6 - 1.2 mg/dL [facility] Alkaline phosphatase 100 42 - 141 U/L [facility] ALT 43 10 - 47 U/L [facility] AST 33 11 - 38 U/L [facility] Total bilirubin 0.6 0.2 - 1.6 mg/dL [facility] Albumin 3.4 3.3 - 5.5 g/dL [facility] Protein 6.7 6.4 - 8.1 g/dL [facility] Anion gap 5 (L) 7 - 15 mEq/L DEPARTMENT OF Comment: PATHOLOGY AND Starting from November GENOMIC , anion gap calculation [facility] no longer incorporates EMERGENCY CARE potassium. Please note the CENTER change. A/G ratio 1.03 0.70 - 3.80 [facility] Specimen Plasma specimen Performing Organization Address City/State/Zipcode Phone Number [place] [phone] [place] [address] PATHOLOGY AND GENOMIC MEDICINE,[facility] after 07/14/2017 Insurance Payer Benefit Subscriber ID Type Phone Address Plan / Group [facility] xxxxxxxx [facility] Guarantor Name Account Relation to Date of Phone Billing Address Type Patient Gasper Carey Personal/F Self 1975 [address] [facility] [id number] [facility] (Home) [place] [address] Advance Directives Patient has advance care planning documents on file. For more information, judy gonzalez contact: Otilio Alexander [address] [place] [address]
[2018-07-15 14:35] VITALS: BP 127/73
[2018-07-15 16:00] VITALS: BP 142/82
[2018-07-15] MEDS: METRONIDAZOLE 500MG/NS 100ML 100 ML IV SCH (17:19)
[2018-07-15] MEDS ORDERED: ALPRAZOLAM 1 MG TAB PO PRN (17:45)
--- NOTE | 2018-07-15 18:30 | History and Physical ---
HISTORY OF PRESENT ILLNESS: She is a 42-year-old female patient of mine who presented to the emergency room with a complaint of severe left lower quadrant abdominal pain. The patient was evaluated in a free standing ER and the patient was found to have sigmoid diverticulitis with microperforation, so the patient was admitted for further care. The patient was having severe pain in the left lower quadrant. The patient was having cramping pain in the left lower abdomen, which has gotten worse, and the patient was also constipated. The pain was 10/10. REVIEW OF SYSTEMS: Left lower abdominal pain with no blood in the stool, no urinary problems. PAST MEDICAL HISTORY: History of hypertension, diverticulitis, The patient had complications from obesity surgery. PAST SURGICAL HISTORY: Gastric bypass surgery. MEDICATIONS: See from the list. ALLERGIES: NO KNOWN DRUG ALLERGIES. SOCIAL HISTORY: Denies smoking, denies using alcohol. PHYSICAL EXAMINATION GENERAL: She is a middle-aged female patient lying in the bed not in any acute distress. VITAL SIGNS: Temperature 99, pulse 88, respirations 18, blood pressure 110/70. HEENT: Normocephalic atraumatic. NECK: No JVD, no lymphadenopathy. LUNGS: Bilateral equal air entry; no rales, no rhonchi. HEART: S1, S2, regular, no murmur, no gallop. ABDOMEN: Soft, bowel sounds present. Left lower quadrant tenderness present. NEUROLOGIC: Nonfocal. No neurologic deficit. DATA: The patient had a CAT scan and was found to have sigmoid diverticulitis without greta perforation or abscess collection. There is small amount of gas visible in the pelvic cavity. ADMITTING IMPRESSION AND DIAGNOSES 1. Acute sigmoid diverticulitis. 2. Hypertension. 3. Obesity. 4. Chronic back pain 5. Anxiety. 6. Depression. 7. Osteoarthritis. 8. History of PE AND DVT. PLAN: The patient will be admitted with the above diagnosis. Will treat the patient with IV antibiotics, Levaquin, Flagyl. Will keep the patient n.p.o. and obtain GI consult with Dr. Hilton. X RAY abdomen tomorrow. Job#: [id number] [facility] SYSTEMSNoe
[2018-07-15 20:00] VITALS: BP 122/65
[2018-07-15] MEDS ORDERED: SODIUM CHLORIDE 0.9% 250ML 250 ML ONE (23:45)
[2018-07-16] VITALS (8 sets, daily range): BP systolic 105–141; BP diastolic 51–80
[2018-07-16] MEDS: ACETAMINOPHEN 325 MG TAB PO PRN ×3 (00:25→22:36)
[2018-07-16] MEDS: METRONIDAZOLE 500MG/NS 100ML 100 ML IV SCH ×5 (00:25→22:56)
[2018-07-16] MEDS: PROMETHAZINE 12.5MG/ NACL 0.9% 50 ML IV PRN (03:02)
[2018-07-16] MEDS: HYDROMORPHONE 2MG/ML 2 MG/ML ML IV PRN ×2 (03:02→22:37)
[2018-07-16 05:04] LABS: BASOPHILS % 0.4 % (0.0-1.0); EOSINOPHILS # (AUTO) 0.2 (0.0-0.4); HEMATOCRIT 35.9 % (34.2-44.1); HEMOGLOBIN 11.9 g/dL (12.0-16.0); LYMPHOCYTES # (AUTO) 2.1 (1.0-3.2); LYMPHOCYTES % 30.3 % (18.0-39.1); MEAN CORPUSCULAR HEMOGLOBIN 28.4 pg (28-32); MEAN CORPUSCULAR HGB CONC 33.1 g/dL (31-35); MEAN CORPUSCULAR VOLUME 85.7 fL (81-99); MONOCYTES # (AUTO) 0.5 (0.2-0.8); MONOCYTES % 7.7 % (4.4-11.3); NEUTROPHILS # (AUTO) 4.1 (2.1-6.9); NEUTROPHILS % 58.2 % (38.7-80.0); PLATELET COUNT 344 x10e3/uL (140-360); RED BLOOD COUNT 4.19 x10e6/uL (3.6-5.1); RED CELL DISTRIBUTION WIDTH 13.7 % (11.7-14.4)
[2018-07-16 05:29] LABS: ALANINE AMINOTRANSFERASE 20 IU/L (0-55); ALBUMIN 3.1 g/dL (3.5-5.0); ALBUMIN/GLOBULIN RATIO 0.9 (0.8-2.0); ALKALINE PHOSPHATASE 84 IU/L (40-150); BLOOD UREA NITROGEN 8 mg/dL (7-26); BUN/CREATININE RATIO 11 (6-25); CALCIUM 9.1 mg/dL (8.4-10.2); CARBON DIOXIDE 24 mmol/L (22-29); CHLORIDE 105 mmol/L (98-107); CREATININE, SERUM 0.72 mg/dL (0.57-1.11); EST GLOMERULAR FILTRATION RATE > 60 ML/MIN (60-); GLUCOSE 107 mg/dL (74-118); SODIUM 139 mmol/L (136-145)
--- NOTE | 2018-07-16 07:15 | Diagnostic Imaging Report ---
PROCEDURE:X-RAY ABDOMEN - KUB COMPARISON:CT abdomen and pelvis 07/15/2018. INDICATIONS:DIVERTICULITIS FINDINGS: Bowel gas pattern shows no dilated, air-filled loops of bowel. No abnormal abdominal mass effect or organomegaly. Bilateral tubal ligation devices. Pelvic phleboliths. Surgical clips along the right flank. Regional skeletal structures are intact. CONCLUSION: Nonobstructive bowel gas pattern. For further description of acute sigmoid diverticulitis refer to CT abdomen and pelvis 07/15/2018.. Dictated by: Ronnie Cespedes M.D. on 07/16/2018 at 7:24 Electronically approved by: Ronnie Cespedes M.D. on 07/16/2018 at 7:24
[2018-07-16] MEDS: LEVOFLOXACIN 750MG/D5W 150ML 150 ML IV SCH (09:05)
[2018-07-16] MEDS: GABAPENTIN 300 MG CAP PO SCH ×2 (09:05→17:10)
[2018-07-16] MEDS: PROPRANOLOL HCL 40 MG TAB PO SCH ×2 (09:05→16:55)
[2018-07-16] MEDS: ENOXAPARIN SOD INJ 40 MG/0.4 ML SYR SC SCH (17:10)
[2018-07-16] MEDS: D5.45%NS/KCL 20MEQ 1,000 ML IV SCH (21:57)
[2018-07-17] VITALS (8 sets, daily range): BP systolic 96–134; BP diastolic 52–76
[2018-07-17] MEDS: METRONIDAZOLE 500MG/NS 100ML 100 ML IV SCH ×4 (05:20→23:19)
[2018-07-17 05:23] LABS: BASOPHILS % 0.7 % (0.0-1.0); EOSINOPHILS # (AUTO) 0.2 (0.0-0.4); EOSINOPHILS % 3.4 % (0.0-6.0); HEMATOCRIT 37.1 % (34.2-44.1); HEMOGLOBIN 11.8 g/dL (12.0-16.0); LYMPHOCYTES # (AUTO) 2.5 (1.0-3.2); LYMPHOCYTES % 42.6 % (18.0-39.1); MEAN CORPUSCULAR HGB CONC 31.8 g/dL (31-35); MEAN CORPUSCULAR VOLUME 88.1 fL (81-99); MONOCYTES # (AUTO) 0.7 (0.2-0.8); MONOCYTES % 12.1 % (4.4-11.3); NEUTROPHILS # (AUTO) 2.4 (2.1-6.9); NEUTROPHILS % 40.7 % (38.7-80.0); PLATELET COUNT 319 x10e3/uL (140-360); RED BLOOD COUNT 4.21 x10e6/uL (3.6-5.1); RED CELL DISTRIBUTION WIDTH 13.8 % (11.7-14.4)
[2018-07-17 05:50] LABS: ALANINE AMINOTRANSFERASE 26 IU/L (0-55); ALKALINE PHOSPHATASE 75 IU/L (40-150); ANION GAP 16.3 mmol/L (8-16); BLOOD UREA NITROGEN 11 mg/dL (7-26); BUN/CREATININE RATIO 16 (6-25); CARBON DIOXIDE 19 mmol/L (22-29); CHLORIDE 108 mmol/L (98-107); EST GLOMERULAR FILTRATION RATE > 60 ML/MIN (60-); GLUCOSE 103 mg/dL (74-118); POTASSIUM 4.3 mmol/L (3.5-5.1); SODIUM 139 mmol/L (136-145)
[2018-07-17] MEDS: LEVOFLOXACIN 750MG/D5W 150ML 150 ML IV SCH (09:49)
[2018-07-17] MEDS: GABAPENTIN 300 MG CAP PO SCH ×2 (09:49→18:16)
[2018-07-17] MEDS: PROPRANOLOL HCL 40 MG TAB PO SCH ×2 (09:49→18:16)
[2018-07-17] MEDS: PROMETHAZINE 12.5MG/ NACL 0.9% 50 ML IV PRN ×2 (09:50→21:41)
[2018-07-17] MEDS: D5.45%NS/KCL 20MEQ 1,000 ML IV SCH (16:31)
[2018-07-17] MEDS: ENOXAPARIN SOD INJ 40 MG/0.4 ML SYR SC SCH (18:16)
[2018-07-18] VITALS (8 sets, daily range): BP systolic 112–136; BP diastolic 54–87
[2018-07-18] MEDS: METRONIDAZOLE 500MG/NS 100ML 100 ML IV SCH ×3 (05:03→17:30)
[2018-07-18] MEDS: D5.45%NS/KCL 20MEQ 1,000 ML IV SCH ×2 (05:10→17:30)
[2018-07-18 05:32] LABS: BASOPHILS % 0.4 % (0.0-1.0); EOSINOPHILS # (AUTO) 0.2 (0.0-0.4); EOSINOPHILS % 3.1 % (0.0-6.0); HEMATOCRIT 38.2 % (34.2-44.1); HEMOGLOBIN 12.5 g/dL (12.0-16.0); LYMPHOCYTES # (AUTO) 1.5 (1.0-3.2); LYMPHOCYTES % 20.5 % (18.0-39.1); MEAN CORPUSCULAR HEMOGLOBIN 28.3 pg (28-32); MEAN CORPUSCULAR HGB CONC 32.7 g/dL (31-35); MEAN CORPUSCULAR VOLUME 86.4 fL (81-99); MONOCYTES # (AUTO) 0.6 (0.2-0.8); MONOCYTES % 8.2 % (4.4-11.3); NEUTROPHILS % 67.4 % (38.7-80.0); PLATELET COUNT 377 x10e3/uL (140-360); RED BLOOD COUNT 4.42 x10e6/uL (3.6-5.1); RED CELL DISTRIBUTION WIDTH 13.5 % (11.7-14.4)
[2018-07-18 06:02] LABS: ALANINE AMINOTRANSFERASE 29 IU/L (0-55); ALBUMIN 3.1 g/dL (3.5-5.0); ALBUMIN/GLOBULIN RATIO 1.1 (0.8-2.0); ALKALINE PHOSPHATASE 77 IU/L (40-150); ANION GAP 13.1 mmol/L (8-16); BLOOD UREA NITROGEN 9 mg/dL (7-26); BUN/CREATININE RATIO 13 (6-25); CARBON DIOXIDE 20 mmol/L (22-29); CHLORIDE 108 mmol/L (98-107); CREATININE, SERUM 0.68 mg/dL (0.57-1.11); EST GLOMERULAR FILTRATION RATE > 60 ML/MIN (60-); GLUCOSE 111 mg/dL (74-118); POTASSIUM 4.1 mmol/L (3.5-5.1); SODIUM 137 mmol/L (136-145)
[2018-07-18] MEDS: PROPRANOLOL HCL 40 MG TAB PO SCH ×2 (09:06→17:29)
[2018-07-18] MEDS: LEVOFLOXACIN 750MG/D5W 150ML 150 ML IV SCH (09:06)
[2018-07-18] MEDS: GABAPENTIN 300 MG CAP PO SCH ×2 (09:06→17:29)
[2018-07-18] MEDS: ENOXAPARIN SOD INJ 40 MG/0.4 ML SYR SC SCH (17:29)
[2018-07-19] VITALS (8 sets, daily range): BP systolic 121–151; BP diastolic 62–85
[2018-07-19] MEDS: METRONIDAZOLE 500MG/NS 100ML 100 ML IV SCH ×5 (00:30→23:08)
[2018-07-19] MEDS: D5.45%NS/KCL 20MEQ 1,000 ML IV SCH ×2 (06:56→21:10)
[2018-07-19] MEDS: GABAPENTIN 300 MG CAP PO SCH ×2 (09:28→16:52)
[2018-07-19] MEDS: PROPRANOLOL HCL 40 MG TAB PO SCH ×2 (09:28→16:53)
[2018-07-19] MEDS: LEVOFLOXACIN 750MG/D5W 150ML 150 ML IV SCH (09:28)
[2018-07-19] MEDS: ENOXAPARIN SOD INJ 40 MG/0.4 ML SYR SC SCH (16:52)
[2018-07-19] MEDS: ACETAMINOPHEN 325 MG TAB PO PRN (20:27)
[2018-07-20 04:54] LABS: BASOPHILS % 0.6 % (0.0-1.0); EOSINOPHILS # (AUTO) 0.2 (0.0-0.4); EOSINOPHILS % 3.4 % (0.0-6.0); HEMATOCRIT 37.4 % (34.2-44.1); HEMOGLOBIN 12.4 g/dL (12.0-16.0); LYMPHOCYTES # (AUTO) 1.9 (1.0-3.2); LYMPHOCYTES % 41.2 % (18.0-39.1); MEAN CORPUSCULAR HEMOGLOBIN 28.7 pg (28-32); MEAN CORPUSCULAR HGB CONC 33.2 g/dL (31-35); MEAN CORPUSCULAR VOLUME 86.6 fL (81-99); MONOCYTES # (AUTO) 0.7 (0.2-0.8); MONOCYTES % 14.5 % (4.4-11.3); NEUTROPHILS # (AUTO) 1.9 (2.1-6.9); NEUTROPHILS % 39.7 % (38.7-80.0); PLATELET COUNT 356 x10e3/uL (140-360); RED BLOOD COUNT 4.32 x10e6/uL (3.6-5.1); RED CELL DISTRIBUTION WIDTH 13.7 % (11.7-14.4)
[2018-07-20 05:13] LABS: ALANINE AMINOTRANSFERASE 62 IU/L (0-55); ALBUMIN/GLOBULIN RATIO 0.9 (0.8-2.0); ALKALINE PHOSPHATASE 69 IU/L (40-150); ANION GAP 15.1 mmol/L (8-16); BLOOD UREA NITROGEN 10 mg/dL (7-26); BUN/CREATININE RATIO 13 (6-25); CALCIUM 8.9 mg/dL (8.4-10.2); CARBON DIOXIDE 21 mmol/L (22-29); CHLORIDE 108 mmol/L (98-107); CREATININE, SERUM 0.79 mg/dL (0.57-1.11); EST GLOMERULAR FILTRATION RATE > 60 ML/MIN (60-); GLUCOSE 108 mg/dL (74-118); POTASSIUM 4.1 mmol/L (3.5-5.1); SODIUM 140 mmol/L (136-145)
[2018-07-20 05:34] VITALS: BP 108/61
[2018-07-20] MEDS: METRONIDAZOLE 500MG/NS 100ML 100 ML IV SCH (05:53)
[2018-07-20 08:00] VITALS: BP 108/61
[2018-07-20] MEDS: LEVOFLOXACIN 750MG/D5W 150ML 150 ML IV SCH (09:29)
[2018-07-20] MEDS: PROPRANOLOL HCL 40 MG TAB PO SCH (09:30)
[2018-07-20] MEDS: GABAPENTIN 300 MG CAP PO SCH (09:30)
--- NOTE | 2018-07-20 15:58 | Discharge Summary ---
She is a 42-year-old female patient admitted with the complaint of left lower quadrant abdominal pain. ADMITTING IMPRESSION/DIAGNOSES 1. Acute recurrent severe sigmoid diverticulitis. 2. Obesity. 3. Hypertension. 4. Constipation. 5. History of gastric bypass surgery. 6. History of pulmonary embolism and deep vein thrombosis. HOSPITAL COURSE SUMMARY: Patient was admitted with the above diagnoses. Patient was suspicious to have a microperforation. Patient was kept n.p.o. Patient had a CT scan abdomen and followup serial x-rays. Patient had a GI and surgery evaluation. Patient was decided to be treated on medically, nonsurgically. Patient was treated with Levaquin and Flagyl. Patient got better, and then patient started having oral feeding and then the diet was advanced to the full diet. Patient had a surgical evaluation done, and patient was advised to have surgery in 2 or 3 months. Patient will have a colonoscopy in next 4 to 6 months. Now upon stabilization patient will be discharged home on Levaquin and Flagyl for acute sigmoid diverticulitis and morbid obesity. Now patient will be discharged and follow up as outpatient with me, with Dr. Hilton and Dr. Vásquez. ADRIAN LINDSAY MD Job#: [id number] [facility]
== END 2018-07-20 12:09 | disposition home or self-care (01) | DRG 392 ==
LOC: FSED 08:23 → ERHOLD 10:30 → MED/SURG2 14:09
PROVIDERS: ADMIT Internal Medicine; ATTEND Internal Medicine
DX: K57.32 Diverticulitis of large intestine without perforation or abscess without bleeding (principal); Z68.42 Body mass index [BMI] 45.0-49.9, adult; E66.01 Morbid (severe) obesity due to excess calories; I10 Essential (primary) hypertension; G89.29 Other chronic pain; M54.9 Dorsalgia, unspecified; F41.9 Anxiety disorder, unspecified; F32.9 Major depressive disorder, single episode, unspecified; M19.90 Unspecified osteoarthritis, unspecified site; Z86.711 Personal history of pulmonary embolism; Z86.718 Personal history of other venous thrombosis and embolism; K59.00 Constipation, unspecified; Z98.84 Bariatric surgery status
CPT/HCPCS: 36415; 74018; 74177; 80048; 80053; 81003; 81025; 82948; 85025; 96361; 99284; J1650; J1885; J2270; J2550; J7050

== ENCOUNTER 2018-07-24 13:34 | Emergency (ER) | payer MEDICARE ==
[~2018-07-24] VITALS: Ht 165.1 cm; Wt 135.6 kg
[~2018-07-24 13:34] MED LIST changes: +ALPRAZOLAM1 MG PO; +GABAPENTIN300 MG PO; +NORCO 10-325 T1 EACH
--- OUTSIDE RECORDS SUMMARY | 2018-07-24 13:38 | XMS REPORT | Clinical Summary ---
Author Author Yañez Shinto Organization [place] [facility] Address Unknown Phone Unavailable Care Team Providers Care Electrical Construction Project Manager Name Role Phone Anshul Grey MD PCP [...] (Primary Dx) 11/28/2017 Emergency Emergency Medicine after 07/23/2017 Social History Date Tobacco Use Types Packs/Day [...] Health Maintenance Due Date Last Done Comments MMR VACCINES (1 of - 1977 Standard series) VARICELLA VACCINES (1 of 1989 2 - 2-dose adolescent series) CERVICAL CANCER SCREENING 1997 INFLUENZA VACCINE 04/01/2018 HEPATITIS B VACCINES Aged Out No longer eligible based on patient's age to complete this topic IPV VACCINES Aged Out No longer eligible based on patient's age to complete this topic MENINGOCOCCAL VACCINE Aged Out No longer eligible based on patient's age to complete this topic Procedures Comments Procedure Name Priority Date/Time Associated Diagnosis CT ANGIOGRAM PE CHEST STAT 11/28/2017 9:54 PM CDT HCG QUALITATIVE, URINE STAT 11/28/2017 SCREEN 8:55 PM CDT ZZESTIMATED GFR STAT 11/28/2017 8:55 PM CDT PROTHROMBIN TIME WITH STAT 11/28/2017 INR, I-STAT 8:55 PM CDT COMPREHENSIVE METABOLIC STAT 11/28/2017 PANEL 8:55 PM CDT after 07/23/2017 Results * CT Angiogram Pe Chest (11/28/2017 9:54 PM CDT) Narrative Performed At CT ANGIOGRAM PE CHEST [facility]ANT CLINICAL INDICATION: concern for pe COMPARISON:None. [...] 11/28/2017 10:06 PM, with acknowledgement of understanding. [facility]-[id number] Procedure Note [facility], Radiology Results Incoming - 11/28/2017 10:11 PM [...] 11/28/2017 10:06 PM, with acknowledgement of understanding. [facility]-[id number] Performing Organization Address City/[facility]/Zipcode Phone Number [facility] [address] [place] [address] * Estimated GFR (11/28/2017 8:55 PM CDT) GFR Non Af Amer >90 mL/min/1.73 m2 [facility] GFR Af Amer >90 mL/min/1.73 m2 DEPARTMENT OF Comment: PATHOLOGY AND Chronic kidney disease: <60 GENOMIC mL/min/1.73m2 [facility] Kidney failure: <15 EMERGENCY CARE mL/min/1.73m2 CENTER [...] Americans. Specimen Plasma specimen Performing Organization Address City/[facility]/Zipcode Phone Number [facility] [phone] [place] [address] PATH[facility] * Prothrombin time with INR, I-Stat (11/28/2017 8:55 PM CDT) POC prothrombin time 59.0 (H) 11.0 - 14.5 sec [facility] POC INR 5.3 (HH) DEPARTMENT OF Comment: PATHOLOGY AND The International Normalized GENOMIC Ratio (INR) is a therapeutic [facility] monitoring tool for patients EMERGENCY CARE who [...] Performing Organization Address City/State/Zipcode Phone Number DEPARTMENT [address] [place] [address] [facility] * hCG qualitative, urine screen (11/28/2017 8:55 PM CDT) hCG qualitative, urine NegativeComment: Sensitivity Negative DEPARTMENT OF of HCG test: 25 mIU/ml [facility] Performing Organization Address City/State/Zipcode Phone Number DEPARTMENT OF [address] [place] [address] [facility] * Comprehensive metabolic panel (11/28/2017 8:55 PM CDT) Sodium 137 128 - 145 mEq/L [facility] Potassium 4.7 3.6 - 5.1 mEq/L [facility] CO2 28 18 - 33 mEq/L [facility] Chloride 104 98 - 108 mEq/L [facility] Glucose 103 73 - 118 mg/dL [facility] Calcium 9.1 8.0 - 10.3 mg/dL [facility] BUN 12 7 - 22 mg/dL [facility] Creatinine 0.7 0.6 - 1.2 mg/dL [facility] Alkaline phosphatase 100 42 - 141 U/L [facility] ALT 43 10 - 47 U/L [facility] AST 33 11 - 38 U/L [facility] Total bilirubin 0.6 0.2 - 1.6 mg/dL [facility] Albumin 3.4 3.3 - 5.5 g/dL [facility] Protein 6.7 6.4 - 8.1 g/dL DEPARTMENT OF PATHOLOGY AND GENOMIC MEDICINE,[facility] Anion gap 5 (L) 7 - 15 mEq/L DEPARTMENT OF Comment: PATHOLOGY AND Starting from November GENOMIC , anion gap calculation [facility] no longer incorporates EMERGENCY CARE potassium. Please note the CENTER change. A/G ratio 1.03 0.70 - 3.80 DEPARTMENT OF PATHOLOGY AND [facility] Specimen Plasma specimen Performing Organization Address City/State/Zipcode Phone Number [facility]3 [address] [place] [address] PATHOLOGY AND [facility] after 07/23/2017 Insurance Payer Benefit Subscriber ID Type Phone Address Plan / Group [facility] xxxxxxxx [facility] Advance Directives Patient has advance care planning documents on file. For more information, judy e contact: Otilio Alexander [address] [place] [address]
--- NOTE | 2018-07-24 14:53 | Diagnostic Imaging Report ---
EXAM: CXR 2 VIEW - HOPD, PA and lateral DATE: 07/24/2018 Time stamp on exam: 2:34 PM INDICATION: Cough and congestion COMPARISON: 06/12/2016 FINDINGS: LINES/TUBES: None LUNGS: No consolidations or edema. PLEURA: No effusions or pneumothorax. HEART AND MEDIASTINUM: Normal size and contour. Calcification within the aortic knob. BONES AND SOFT TISSUES: No acute findings. IMPRESSION: No acute thoracic abnormality. Signed by: Dr. Beny Braswell DO on 07/24/2018 2:50 PM
== END 2018-07-24 15:36 | disposition home or self-care (01) ==
LOC: FSED 13:34
DX: R05 Cough (principal); J00 Acute nasopharyngitis [common cold]; I10 Essential (primary) hypertension
CPT/HCPCS: 71046; 87400; 99283

== ENCOUNTER → 2018-09-25 | Outpatient (CLI) | payer MEDICARE ==
[~2018-09-25] MED LIST changes: +DIATRIZOATE MEGL/DIATRIZOA SOD 120 ML BTL PO ONE; +DIATRIZOATE MEGL/DIATRIZOA SOD 30 ML BTL PO ONE
--- NOTE | 2018-09-25 10:43 | Diagnostic Imaging Report ---
EXAM: FL BARIUM ENEMA SINGLE CONTRAST INDICATION: Evaluate extent of diverticula COMPARISON: CT Abdomen/Pelvis 07/15/2018 RADIATION DOSE: Fluoroscopy Time: 1.1 minutes Total dose: 574.4 mGy Technique/Findings: Single contrast barium enema was performed to evaluate for extent of colonic diverticulosis. There is extensive sigmoid diverticulosis. Scattered diverticulosis in the mid to distal transverse and descending colon. Given prior perforated diverticulitis, no air was administered. Incomplete evaluation of the mucosa in the absence of air contrast. No definite mass is identified. FINDINGS: Extensive diverticulosis throughout the sigmoid colon. Scattered diverticulosis in the mid to distal transverse and descending colon. Signed by: Dr. Iqra Lozano MD on 09/25/2018 10:40 AM
== END ==
LOC: DX 07:38
PROVIDERS: ATTEND Surgery
DX: K57.30 Diverticulosis of large intestine without perforation or abscess without bleeding (principal)
CPT/HCPCS: 74280; Q9963

== ENCOUNTER 2018-10-12 07:07 | Inpatient (IN) | payer MEDICARE ==
[2018-10-09 10:00] LABS: BASOPHILS % 0.5 % (0.0-1.0); EOSINOPHILS # (AUTO) 0.3 (0.0-0.4); EOSINOPHILS % 3.5 % (0.0-6.0); HEMATOCRIT 40.2 % (34.2-44.1); HEMOGLOBIN 13.6 g/dL (12.0-16.0); LYMPHOCYTES % 35.9 % (18.0-39.1); MEAN CORPUSCULAR HEMOGLOBIN 29.3 pg (28-32); MEAN CORPUSCULAR HGB CONC 33.8 g/dL (31-35); MEAN CORPUSCULAR VOLUME 86.6 fL (81-99); MONOCYTES # (AUTO) 0.6 (0.2-0.8); MONOCYTES % 6.9 % (4.4-11.3); NEUTROPHILS # (AUTO) 4.4 (2.1-6.9); NEUTROPHILS % 52.5 % (38.7-80.0); PLATELET COUNT 372 x10e3/uL (140-360); RED BLOOD COUNT 4.64 x10e6/uL (3.6-5.1); RED CELL DISTRIBUTION WIDTH 13.7 % (11.7-14.4)
[2018-10-09 10:13] LABS: ANION GAP 11.8 mmol/L (8-16); BLOOD UREA NITROGEN 10 mg/dL (7-26); BUN/CREATININE RATIO 15 (6-25); CALCIUM 8.7 mg/dL (8.4-10.2); CARBON DIOXIDE 21 mmol/L (22-29); CHLORIDE 106 mmol/L (98-107); CREATININE, SERUM 0.66 mg/dL (0.57-1.11); EST GLOMERULAR FILTRATION RATE > 60 ML/MIN (60-); GLUCOSE 103 mg/dL (74-118); POTASSIUM 3.8 mmol/L (3.5-5.1); SODIUM 135 mmol/L (136-145)
[2018-10-12] VITALS (12 sets, daily range): BP systolic 133–160; BP diastolic 84–107
[~2018-10-12] VITALS: Ht 165.1 cm; Wt 135.2 kg
[~2018-10-12 07:07] MED LIST changes: -DIATRIZOATE MEGL/DIATRIZOA SOD 120 ML BTL PO ONE; -DIATRIZOATE MEGL/DIATRIZOA SOD 30 ML BTL PO ONE; +LEVAQUIN500 MG PO; +MILK OF MA2400 MG/10 PO
--- OUTSIDE RECORDS SUMMARY | 2018-10-12 07:08 | XMS REPORT | Clinical Summary ---
Author Author Yañez [facility] Organization [place] [facility] Address Unknown Phone Unavailable Care Team Providers Care Soybean Grower Name Role Phone Anshul Grey MD PCP [...] (Primary Dx) 11/28/2017 Emergency Emergency Medicine after 10/11/2017 Social History Date Tobacco Use Types Packs/Day [...] STAT 11/28/2017 PANEL 8:55 PM CDT after 10/11/2017 Results * CT Angiogram Pe Chest (11/28/2017 [...] 11/28/2017 10:06 PM, with acknowledgement of understanding. [facility]-[id number] Procedure Note [facility], Radiology Results Incoming - 11/28/2017 10:11 [...] 11/28/2017 10:06 PM, with acknowledgement of understanding. [facility]-[id number] Performing Organization Address City/State/Zipcode Phone Number [facility] [address] [place] [address] * Estimated GFR (11/28/2017 8:55 PM CDT) GFR Non Af Amer >90 mL/min/1.73 m2 [facility] GFR Af Amer >90 mL/min/1.73 m2 DEPARTMENT OF Comment: PATHOLOGY AND Chronic kidney disease: <60 GENOMIC mL/min/1.73m2 [facility] Kidney failure: <15 EMERGENCY CARE [...] Americans. Specimen Plasma specimen Performing Organization Address [facility] Centercode Phone Number [address] [address] PATHOLOGY AND [facility] * Prothrombin time with INR, I-Stat (11/28/2017 8:55 PM CDT) POC prothrombin time 59.0 (H) 11.0 - 14.5 sec [facility] POC INR 5.3 (HH) DEPARTMENT OF Comment: PATHOLOGY AND The International Normalized GENOMIC Ratio (INR) is a therapeutic [facility] monitoring tool for patients EMERGENCY [...] Organization Address City/State/Zipcode Phone Number DEPARTMENT OF [address] [place] [address] [address] [place] [address] PATH[facility] * hCG qualitative, urine screen (11/28/2017 8:55 PM CDT) hCG qualitative, urine NegativeComment: Sensitivity Negative DEPARTMENT OF HCG test: 25 mIU/ml [facility] Performing Organization Address City/[facility]/Zipcode Phone Number [address] [place] [address] [facility] * Comprehensive metabolic panel (11/28/2017 8:55 PM CDT) Sodium 137 128 - 145 mEq/L [facility] Potassium 4.7 3.6 - 5.1 mEq/L [facility] CO2 28 18 - 33 mEq/L [facility] Chloride 104 98 - 108 mEq/L [facility] Glucose 103 73 - 118 mg/dL [facility] Calcium 9.1 8.0 - 10.3 mg/dL [facility] BUN 12 7 - 22 mg/dL [facility] Creatinine 0.7 0.6 - 1.2 mg/dL [facility] Alkaline phosphatase 100 42 - 141 U/L [facility] ALT 43 10 - 47 U/L [facility] AST 33 11 - 38 U/L [facility] Total bilirubin 0.6 0.2 - 1.6 mg/dL [facility] Albumin 3.4 3.3 - 5.5 g/dL [facility] Protein 6.7 6.4 - 8.1 g/dL [facility] Anion gap 5 (L) 7 - 15 mEq/L DEPARTMENT OF Comment: PATHOLOGY AND Starting from November GENOMIC , anion gap calculation [facility] no longer incorporates EMERGENCY CARE potassium. Please note the CENTER change. A/G ratio 1.03 0.70 - 3.80 [facility] Specimen Plasma specimen Performing Organization Address City/State/Zipcode Phone Number [place] [phone] [place] [address] PATHOLOGY AND GENOMIC MEDICINE,[facility] after 10/11/2017 Insurance Payer Benefit Subscriber ID Type Phone Address Plan / Group [facility] xxxxxxxx [facility] Guarantor Name Account Relation to Date of Phone Billing Address Type Patient Gasper Carey Personal/F Self 1975 [address] [facility] [id number] [facility] (Home) [place] [address] Advance Directives Patient has advance care planning documents on file. For more information, judy gonzalez contact: Otilio Alexander [address] [place] [address]
[2018-10-12] MEDS ORDERED: ENOXAPARIN SOD INJ 40 MG/0.4 ML SYR SC SCH (10:01)
[2018-10-12] MEDS: DEXTROSE 5%/LACTATED RINGERS 1,000 ML IV SCH ×2 (13:50→19:40)
[2018-10-12] MEDS ORDERED: ACETAMINOPHEN 1000 MG/100 ML IV PRN (14:00)
[2018-10-12] MEDS ORDERED: NALOXONE HCL INJ 0.4 MG/ML AMP IV PRN (14:00)
[2018-10-12] MEDS ORDERED: PROMETHAZINE HCL (IM) 25 MG/ML VIAL IV PRN (14:00)
[2018-10-12] MEDS ORDERED: HYDROMORPHONE 0.2MG/ML-SOD CHL 30ML PCA SYRINGE IV ONE (14:10)
[2018-10-12] MEDS: HYDROMORPHONE 0.2MG/ML-SOD CHL 30ML PCA SYRINGE IV PRN (14:18)
[2018-10-12] MEDS ORDERED: HYDROMORPHONE 2MG/ML 2 MG/ML ML ONE (14:34)
--- OUTSIDE RECORDS SUMMARY | 2018-10-12 14:36 | XMS REPORT | Clinical Summary ---
Author Author Ya[facility]ez [employer] Organization [facility] [employer] Address Unknown Phone Unavailable Care Team Providers Care Lens Dotter Name Role Phone Anshul Grey MD PCP [...] 10:06 PM, with acknowledgement of understanding. [facility]-[id number] Procedure [address] [facility], Radiology Results Incoming - 11/28/2017 10:11 PM [...] 10:06 PM, with acknowledgement of understanding. [facility]-[id number] Performing Organization Address City/State/Zipcode Phone Number [facility] [phone] [place] [address] * Estimated GFR (11/28/2017 8:55 PM CDT) GFR Non Af Amer >90 mL/min/1.73 m2 [facility] GFR Af Amer >90 mL/min/1.73 m2 DEPARTMENT OF Comment: PATHOLOGY AND Chronic kidney disease: <60 GENOMIC mL/min/1.73m2 [facility] Kidney failure: <15 EMERGENCY CARE mL/min/1.73m2 [...] Americans. Specimen Plasma specimen Performing Organization Address [facility] Cent[facility] Phone Number [address] [address] PATHOLOGY AND [facility] * Prothrombin time with INR, I-Stat (11/28/2017 8:55 PM CDT) POC prothrombin time 59.0 (H) 11.0 - 14.5 sec [facility] POC INR 5.3 (HH) DEPARTMENT OF Comment: PATHOLOGY AND The International Normalized GENOMIC Ratio (INR) is a therapeutic [facility] monitoring tool for patients EMERGENCY CARE [...] Organization Address City/State/Zipcode Phone Number DEPARTMENT OF [address] [place] [address] [address] [place] [address] [facility] * hCG qualitative, urine screen (11/28/2017 8:55 PM CDT) hCG qualitative, urine NegativeComment: Sensitivity Negative DEPARTMENT OF HCG test: 25 mIU/ml [facility] Performing Organization Address City/[facility]/Zipcode Phone Number [address] [place] [address] [facility] * Comprehensive metabolic panel (11/28/2017 8:55 PM CDT) Sodium 137 128 - 145 mEq/L [facility] Potassium 4.7 3.6 - 5.1 mEq/L [facility] CO2 28 18 - 33 mEq/L [facility] Chloride 104 98 - 108 mEq/L [facility] Glucose 103 73 - 118 mg/dL [facility] Calcium 9.1 8.0 - 10.3 mg/dL [facility] BUN 12 7 - 22 mg/dL [facility] Creatinine 0.7 0.6 - 1.2 mg/dL [facility] Alkaline phosphatase 100 42 - 141 U/L [facility] ALT 43 10 - 47 U/L [facility] AST 33 11 - 38 U/L [facility] Total bilirubin 0.6 0.2 - 1.6 mg/dL [facility] Albumin 3.4 3.3 - 5.5 g/dL [facility] Protein 6.7 6.4 - 8.1 g/dL [facility] Anion gap 5 (L) 7 - 15 mEq/L DEPARTMENT OF Comment: PATHOLOGY AND Starting from November GENOMIC , anion gap calculation [facility] no longer incorporates EMERGENCY CARE potassium. Please note the CENTER change. A/G ratio 1.03 0.70 - 3.80 [facility] Specimen Plasma specimen Performing Organization Address City/State/Zipcode Phone Number [place] [phone] [place] [address] PATHOLOGY AND GENOMIC MEDICINE,[facility] after 10/11/2017 Insurance Payer Benefit Subscriber ID Type Phone Address Plan / Group [facility] xxxxxxxx [facility] Guarantor Name Account Relation to Date of Phone Billing Address Type Patient Gasper Carey Personal/F Self [phone] [id number] [facility] (Home) [place] [address] Advance Directives Patient has advance care planning documents on file. For more information, judy gonzalez contact: Otilio Alexander [address] [address]
[2018-10-12] MEDS ORDERED: ONDANSETRON HCL INJ 2MG/ML 2ML 2 MG/ML VIAL ONE ×3 (14:47→18:39)
[2018-10-12] MEDS: SODIUM CHLORIDE 0.9% 250ML IRRIG IR SCH ×3 (17:00→22:05)
[2018-10-12] MEDS: PROPRANOLOL HCL 40 MG TAB PO SCH (17:00)
[2018-10-12] MEDS: PANTOPRAZOLE 40 MG 10ML VIAL IV SCH (17:00)
[2018-10-12] MEDS ORDERED: DEXAMETHASONE SOD PHOS INJ 4 MG/ML VIAL ONE (18:39)
[2018-10-12] MEDS ORDERED: GLYCOPYRROLATE INJ 1MG/ 5 ML SYR ONE (18:39)
[2018-10-12] MEDS ORDERED: SEVOFLURANE INHAL SOLN 250 ML PEN BTL ONE (18:39)
[2018-10-12] MEDS ORDERED: ACETAMINOPHEN 1000 MG/100 ML IV ONE (18:39)
[2018-10-12] MEDS ORDERED: ROCURONIUM BROMIDE 10 MG/ML 5ML VIAL ONE (18:39)
[2018-10-12] MEDS ORDERED: LIDOCAINE HCL 2% LOCAL INJ 5 ML SDV VIAL INJ ONE (18:39)
[2018-10-12] MEDS ORDERED: NEOSTIGMINE 5 MG/5ML SYR ONE (18:39)
[2018-10-12] MEDS ORDERED: KETOROLAC TROMETHAMINE 30 MG/ML VIAL ONE ×2 (18:39)
[2018-10-12] MEDS ORDERED: CEFOXITIN SOD 1 GM VIAL ONE (18:39)
[2018-10-12] MEDS ORDERED: PROPOFOL IV EMULSION 10 MG/ML 20 ML VIAL ONE (18:39)
[2018-10-12] MEDS ORDERED: MIDAZOLAM HCL 2 MG/2 ML VIAL ONE (18:49)
[2018-10-12] MEDS ORDERED: FENTANYL CITRATE/PF 100MCG/2 ML INJ ONE (18:49)
--- NOTE | 2018-10-12 19:00 | NUR ---
Report received. Assumed care. Assessment done. See interventions. NGT to LCWS. Dilaudid DIE TRIMMER for pain control. c/o pain 04/10. Advised to use DIE TRIMMER as needed. Lemon glycerine swabs for dry mouth given per request. O2 per NC @ 2L. IV D5LR infusing @ 100ml/hr.
[2018-10-12] MEDS: CEFOXITIN 1GM/ D5W 50ML 50 ML IV SCH (21:28)
[2018-10-13] VITALS (21 sets, daily range): BP systolic 92–152; BP diastolic 71–139
[2018-10-13] MEDS: SODIUM CHLORIDE 0.9% 250ML IRRIG IR SCH ×4 (02:14→14:00)
[2018-10-13] MEDS: CEFOXITIN 1GM/ D5W 50ML 50 ML IV SCH (02:14)
[2018-10-13 05:10] LABS: BASOPHILS % 0.2 % (0.0-1.0); EOSINOPHILS % 0.1 % (0.0-6.0); HEMATOCRIT 39.4 % (34.2-44.1); LYMPHOCYTES # (AUTO) 1.5 (1.0-3.2); LYMPHOCYTES % 9.8 % (18.0-39.1); MEAN CORPUSCULAR HEMOGLOBIN 29.4 pg (28-32); MEAN CORPUSCULAR VOLUME 89.1 fL (81-99); MONOCYTES # (AUTO) 1.6 (0.2-0.8); MONOCYTES % 10.1 % (4.4-11.3); NEUTROPHILS # (AUTO) 12.3 (2.1-6.9); NEUTROPHILS % 79.3 % (38.7-80.0); PLATELET COUNT 354 x10e3/uL (140-360); RED BLOOD COUNT 4.42 x10e6/uL (3.6-5.1); RED CELL DISTRIBUTION WIDTH 13.2 % (11.7-14.4)
[2018-10-13 05:43] LABS: ANION GAP 14.6 mmol/L (8-16); BLOOD UREA NITROGEN 11 mg/dL (7-26); BUN/CREATININE RATIO 13 (6-25); CALCIUM 8.6 mg/dL (8.4-10.2); CARBON DIOXIDE 19 mmol/L (22-29); CHLORIDE 104 mmol/L (98-107); CREATININE, SERUM 0.82 mg/dL (0.57-1.11); EST GLOMERULAR FILTRATION RATE > 60 ML/MIN (60-); GLUCOSE 145 mg/dL (74-118); POTASSIUM 4.6 mmol/L (3.5-5.1); SODIUM 133 mmol/L (136-145)
[2018-10-13] MEDS: DEXTROSE 5%/LACTATED RINGERS 1,000 ML IV SCH (06:52)
[2018-10-13 07:28] LABS: LYMPHOCYTES % (MANUAL) 14 % (19-48); MONOCYTES % (MANUAL) 5 % (3.4-9.0); NEUTROPHILS % (MANUAL) 81 % (40-74)
[2018-10-13 07:29] LABS: PLATELET ESTIMATE ADEQUATE; PLATELET MORPHOLOGY COMMENT NORMAL; RBC MORPHOLOGY COMMENT NORMAL
[2018-10-13] MEDS: PROPRANOLOL HCL 40 MG TAB PO SCH ×2 (09:00→17:00)
[2018-10-13] MEDS: ENOXAPARIN SOD INJ 40 MG/0.4 ML SYR SC SCH (09:27)
[2018-10-13] MEDS: METOPROLOL TARTRATE INJ 1 MG/ML VIAL IV SCH (09:27)
[2018-10-13] MEDS: PROMETHAZINE 12.5MG/ NACL 0.9% 50 ML IV PRN (11:59)
[2018-10-13] MEDS: PANTOPRAZOLE 40 MG 10ML VIAL IV SCH (16:00)
--- NOTE | 2018-10-13 19:00 | NUR ---
RECEIVED REPORT ON PT FROM MARIO RN, PT AAOX3 BREATHING EVEN AND UNLABORED, DENIES PAIN AT THIS TIME, HOB ELEVATED, MIDLINE ABD INCISION CDI, WITH ABDOMINAL BINDER ON, ENCOURAGED PT TO MOVE LEGS AND FEET IN BED SINCE PT REFUSES TO WEAR SCD'S . TURNED PT AND REPOSITIONED, PT AWAERE CON COINCIDENCES. PT VERBALIZED UNDERSTANDING.
[2018-10-13] MEDS: HYDROMORPHONE 0.2MG/ML-SOD CHL 30ML PCA SYRINGE IV PRN ×2 (19:31→21:26)
[2018-10-13] MEDS: ACETAMINOPHEN 1000 MG/100 ML IV PRN (23:24)
[2018-10-14] VITALS (11 sets, daily range): BP systolic 122–151; BP diastolic 61–91
[2018-10-14] MEDS: DEXTROSE 5%/LACTATED RINGERS 1,000 ML IV SCH ×4 (01:35→23:10)
[2018-10-14 05:11] LABS: BASOPHILS % 0.2 % (0.0-1.0); EOSINOPHILS % 0.2 % (0.0-6.0); HEMATOCRIT 35.7 % (34.2-44.1); HEMOGLOBIN 11.5 g/dL (12.0-16.0); LYMPHOCYTES # (AUTO) 1.7 (1.0-3.2); MEAN CORPUSCULAR HEMOGLOBIN 29.1 pg (28-32); MEAN CORPUSCULAR HGB CONC 32.2 g/dL (31-35); MEAN CORPUSCULAR VOLUME 90.4 fL (81-99); MONOCYTES # (AUTO) 1.5 (0.2-0.8); MONOCYTES % 10.8 % (4.4-11.3); NEUTROPHILS # (AUTO) 10.5 (2.1-6.9); NEUTROPHILS % 76.1 % (38.7-80.0); PLATELET COUNT 319 x10e3/uL (140-360); RED BLOOD COUNT 3.95 x10e6/uL (3.6-5.1)
[2018-10-14 05:29] LABS: ANION GAP 13.1 mmol/L (8-16); BLOOD UREA NITROGEN 7 mg/dL (7-26); BUN/CREATININE RATIO 9 (6-25); CALCIUM 8.4 mg/dL (8.4-10.2); CARBON DIOXIDE 24 mmol/L (22-29); CHLORIDE 104 mmol/L (98-107); CREATININE, SERUM 0.78 mg/dL (0.57-1.11); EST GLOMERULAR FILTRATION RATE > 60 ML/MIN (60-); GLUCOSE 119 mg/dL (74-118); POTASSIUM 4.1 mmol/L (3.5-5.1); SODIUM 137 mmol/L (136-145)
--- NOTE | 2018-10-14 06:05 | NUR ---
PT CONTINUES TO REST WELL . PT'S DAUGHTER AT HER BEDSIDE WITH PT TO ASSISIT HER AND KEEP HER COMPANY, PT VERBALIZED UNDERSTANDING..
--- NOTE | 2018-10-14 07:38 | NUR ---
Reported off to oncoming nurse, pt aaox3, using WAREHOUSER pump of dilaudid. encouraged to move throughout the night, pt verbalized understanding.
--- NOTE | 2018-10-14 08:00 | NUR ---
ambulated in room on continuous monitoring. patient tolerated fair. vital signs stable.
[2018-10-14] MEDS: PROPRANOLOL HCL 40 MG TAB PO SCH ×3 (09:00→23:18)
[2018-10-14] MEDS: METOPROLOL TARTRATE INJ 1 MG/ML VIAL IV SCH (09:25)
[2018-10-14] MEDS: ENOXAPARIN SOD INJ 40 MG/0.4 ML SYR SC SCH (09:25)
[2018-10-14] MEDS: ACETAMINOPHEN 1000 MG/100 ML IV PRN ×2 (10:35→16:11)
--- NOTE | 2018-10-14 10:49 | NUR ---
patient sitting up in chair
--- NOTE | 2018-10-14 11:28 | NUR ---
patient ambulated on unit. tolerated well after IV tylenol given. hypoactive bowel sounds hear on URQ of abdomen
--- NOTE | 2018-10-14 14:20 | NUR ---
cortez catheter discontinued, patient tolerated well and is due to void, oncoming nurse informed
[2018-10-14] MEDS: PANTOPRAZOLE 40 MG 10ML VIAL IV SCH (14:30)
--- NOTE | 2018-10-14 14:42 | NUR ---
Patient transferred to unit from ICU. Patient is post op exploratory lap with open colectomy. Dressing to abdomen clean and dry with abdominal binder in place. Lung kennedy clear to auscultation. Bowel sounds present but hypoactive. Patient passed gas prior to transfer. No edema noted. Patient did not want SCD's on at this time. Patient assisted up and out of bed with a walker. Patient tolerated well. Patient is NPO with IV fluids and TIME CLERK pump in place. NO s/s of distress noted
[2018-10-14] MEDS: HYDROMORPHONE 0.2MG/ML-SOD CHL 30ML PCA SYRINGE IV PRN (16:39)
--- NOTE | 2018-10-14 16:52 | NUR ---
CASE MANAGEMENT INITIAL ASSESSMENT Senior Cognos Developer to bedside to discuss plan of care with patient/family. CM/SW role and care transitions discussed. Anticipated discharge plan discussed along with duration of care. CM/SW discussed patients right to make decisions in care. CM/SW work hours given. Patient lives: IN [facility] W SONS 08/15 Admit/Transfer: DIRECT ADMIT FOR SURGERY Hospital/ER visits since last admit: NONE IN 30 DAYS POA/Emergency contact: LOUIE HENNESSY / CYNTHIA 24Y/O @ [phone] Current/Previous Home Health: SN AFTER Pannectomy @ [facility] on November 10, 2017. PT DOES NOT REMEMBER NAME OF HH AGENCY PCP/Follow-up Care: DR. Dileep LINDSAY Current/Previous DME: NONE Other Services: NONE Employment Status: DISABLED; R/O KNEES Areas of Concerns: MAY NEED WALKER AT DC Referral Needs: HH Education Needs: NONE IMM/COFFEY given and signed (if applicable): SIGNED. COPY TO CHART. PT DID NOT WANT A COPY. Goal for discharge: RETURN HOME CM/SW left business card at the bedside with contact information. Name and number was also written on the patients whiteboard. Patient verbalized understanding of discussion. CM will follow-up with ongoing discharge and transition of care needs.
--- NOTE | 2018-10-14 17:26 | NUR ---
Patient voided at this time.
[2018-10-14] MEDS ORDERED: HYDROMORPHONE 0.2MG/ML-SOD CHL 30ML PCA SYRINGE IV PRN ×2 (17:30)
[2018-10-14] MEDS: BISACODYL 10 MG SUPP PR SCH (21:45)
[2018-10-15] VITALS (8 sets, daily range): BP systolic 120–178; BP diastolic 56–72
[2018-10-15 06:05] LABS: BASOPHILS % 0.2 % (0.0-1.0); EOSINOPHILS # (AUTO) 0.1 (0.0-0.4); EOSINOPHILS % 0.5 % (0.0-6.0); HEMATOCRIT 30.9 % (34.2-44.1); HEMOGLOBIN 10.1 g/dL (12.0-16.0); LYMPHOCYTES % 11.9 % (18.0-39.1); MEAN CORPUSCULAR HEMOGLOBIN 29.2 pg (28-32); MEAN CORPUSCULAR HGB CONC 32.7 g/dL (31-35); MEAN CORPUSCULAR VOLUME 89.3 fL (81-99); MONOCYTES # (AUTO) 1.2 (0.2-0.8); MONOCYTES % 7.2 % (4.4-11.3); NEUTROPHILS # (AUTO) 13.1 (2.1-6.9); NEUTROPHILS % 79.4 % (38.7-80.0); PLATELET COUNT 337 x10e3/uL (140-360); RED BLOOD COUNT 3.46 x10e6/uL (3.6-5.1); RED CELL DISTRIBUTION WIDTH 14.1 % (11.7-14.4)
[2018-10-15 06:24] LABS: ANION GAP 12.6 mmol/L (8-16); BLOOD UREA NITROGEN 6 mg/dL (7-26); BUN/CREATININE RATIO 9 (6-25); CALCIUM 8.4 mg/dL (8.4-10.2); CARBON DIOXIDE 21 mmol/L (22-29); CHLORIDE 104 mmol/L (98-107); CREATININE, SERUM 0.68 mg/dL (0.57-1.11); EST GLOMERULAR FILTRATION RATE > 60 ML/MIN (60-); GLUCOSE 107 mg/dL (74-118); POTASSIUM 3.6 mmol/L (3.5-5.1); SODIUM 134 mmol/L (136-145)
--- NOTE | 2018-10-15 06:53 | NUR ---
PAGED DR. Niurka PRIDE REGARDING PT C/O HEADACHE. AWAITING CALL BACK
--- NOTE | 2018-10-15 07:42 | NUR ---
Rcvd patient in report this am. Patient is asleep in bed at this time. No s/s of distress noted
--- NOTE | 2018-10-15 07:47 | NUR ---
DEYA FILED ON CHART, MATTHEW SIGNED AND FILED ON CHART FOR [facility]. RTF COMPLETED AND PUT AT NURSES STATION 1. HAD ALL INFORMATION YESTERDAY BUT PT WAS IN RECOVERY AND DID NOT HAVE ACCESS TO CHART TO FILE UNTIL TODAY. POST DISCHARGE STATUS FORM FILED IN FRONT OF CHART WITH CARA. Addendum: 10/15/18 at 0750 by Kassandra Vaughn CM INCORRECT INFORMATION FOR PT, DISREGARD
[2018-10-15] MEDS: BISACODYL 10 MG SUPP PR SCH (08:00)
[2018-10-15] MEDS: PROPRANOLOL HCL 40 MG TAB PO SCH ×2 (09:18→16:41)
[2018-10-15] MEDS: ENOXAPARIN SOD INJ 40 MG/0.4 ML SYR SC SCH (09:19)
[2018-10-15] MEDS: DEXTROSE 5%/LACTATED RINGERS 1,000 ML IV SCH ×2 (12:02→21:12)
[2018-10-15] MEDS: PANTOPRAZOLE 40 MG 10ML VIAL IV SCH (14:13)
--- NOTE | 2018-10-15 15:53 | NUR ---
PT CONCERNED ABOUT HER ABILITY TO GO UP STAIRS WHEN SHE GETS HOME NOTE ON FRONT OF CHART FOR DRS TO ORDER P.T. TO WORK WITH PT PRIOR TO DC
[2018-10-15] MEDS ORDERED: HYDROMORPHONE 2MG/ML 2 MG/ML ML IV PRN (19:30)
--- NOTE | 2018-10-15 21:30 | NUR ---
Assessment done.aaox3.no resp.distress.disconnect raveler dilaudid.ambulates.passes gas.dressing site is dry and intact. bed locked and in lowest position.phone and call light within reach.instructed to call for assistance as needed.pain voiced 03/10.keep monitor the pt.
[2018-10-16] VITALS (7 sets, daily range): BP systolic 98–138; BP diastolic 49–75
[2018-10-16 05:57] LABS: BASOPHILS # (AUTO) 0.1 (0.0-0.1); BASOPHILS % 0.4 % (0.0-1.0); EOSINOPHILS # (AUTO) 0.3 (0.0-0.4); EOSINOPHILS % 2.2 % (0.0-6.0); HEMATOCRIT 31.3 % (34.2-44.1); HEMOGLOBIN 10.2 g/dL (12.0-16.0); LYMPHOCYTES # (AUTO) 2.7 (1.0-3.2); LYMPHOCYTES % 21.4 % (18.0-39.1); MEAN CORPUSCULAR HEMOGLOBIN 29.2 pg (28-32); MEAN CORPUSCULAR HGB CONC 32.6 g/dL (31-35); MEAN CORPUSCULAR VOLUME 89.7 fL (81-99); MONOCYTES # (AUTO) 1.1 (0.2-0.8); MONOCYTES % 8.4 % (4.4-11.3); NEUTROPHILS # (AUTO) 8.5 (2.1-6.9); NEUTROPHILS % 66.8 % (38.7-80.0); PLATELET COUNT 364 x10e3/uL (140-360); RED BLOOD COUNT 3.49 x10e6/uL (3.6-5.1); RED CELL DISTRIBUTION WIDTH 14.1 % (11.7-14.4)
[2018-10-16 06:25] LABS: ALANINE AMINOTRANSFERASE 23 IU/L (0-55); ALBUMIN 2.3 g/dL (3.5-5.0); ALBUMIN/GLOBULIN RATIO 0.7 (0.8-2.0); ALKALINE PHOSPHATASE 123 IU/L (40-150); ANION GAP 14.4 mmol/L (8-16); BLOOD UREA NITROGEN 9 mg/dL (7-26); BUN/CREATININE RATIO 13 (6-25); CALCIUM 8.6 mg/dL (8.4-10.2); CARBON DIOXIDE 23 mmol/L (22-29); CHLORIDE 105 mmol/L (98-107); CREATININE, SERUM 0.68 mg/dL (0.57-1.11); EST GLOMERULAR FILTRATION RATE > 60 ML/MIN (60-); GLUCOSE 91 mg/dL (74-118); POTASSIUM 3.4 mmol/L (3.5-5.1); SODIUM 139 mmol/L (136-145)
--- NOTE | 2018-10-16 06:50 | NUR ---
REPORT GIVEN TO THE ONCOMING RN.WALKING ROUNDS DONE.STABLE CONDITION.
[2018-10-16] MEDS: HYDROCODONE/APAP 7.5MG-325MG 1 EA TAB PO PRN ×3 (09:06→20:41)
[2018-10-16] MEDS: PROPRANOLOL HCL 40 MG TAB PO SCH ×2 (09:15→17:36)
[2018-10-16] MEDS: ENOXAPARIN SOD INJ 40 MG/0.4 ML SYR SC SCH (09:15)
[2018-10-16] MEDS: DEXTROSE 5%/LACTATED RINGERS 1,000 ML IV SCH ×2 (09:28→17:50)
--- NOTE | 2018-10-16 10:41 | NUR ---
IMM EXPLAINED, SIGNED BY PT AND PLACED ON CHART COPY OF IMM PLACED IN PT CARE TRANSITION FOLDER
[2018-10-16] MEDS ORDERED: POTASSIUM CHLORIDE 20 MEQ TAB CR PO ONE (14:00)
[2018-10-16] MEDS: PANTOPRAZOLE 40 MG 10ML VIAL IV SCH (15:00)
--- NOTE | 2018-10-16 15:52 | NUR ---
Received order for 3-in-1 bedside commode. Spoke to pt at bedside. She does not have preference for what company to use as long as they take her insurance. JEANNE spoke with Gibran with [employer] who states they do take pt's insurance. Choice letter signed for [facility] and filed in chart. Referral was faxed to [phone]. Gibran informed of referral.
--- NOTE | 2018-10-16 19:10 | NUR ---
REPORT RECEIVED FROM OFF GOING NURSE, PT RESTING IN BED ALERT AND ORIENTED, DENIES NEEDS, IV INFUSING PER ORDER, ABD BINDER IN PLACE TO ABD WITH NO DRAINAGE NOTED, SENIOR SALES ENGINEER NOTED, BED LOCKED AND LOW, INSTRUCTED TO CALL WITH NEEDS, FAMILY AT BEDSIDE, PT VOICES UNDERSTANDING
[2018-10-16] MEDS: PROMETHAZINE 12.5MG/ NACL 0.9% 50 ML IV PRN (19:45)
[2018-10-17] VITALS: BP 114/57
[2018-10-17] MEDS: HYDROCODONE/APAP 7.5MG-325MG 1 EA TAB PO PRN ×4 (01:38→20:25)
[2018-10-17] MEDS: DEXTROSE 5%/LACTATED RINGERS 1,000 ML IV SCH ×3 (03:50→23:50)
--- NOTE | 2018-10-17 05:45 | NUR ---
PT RESTING IN RECLINER CHAIR ALERT AND ORIENTED, NO DISTRESS NOTED, DENIES NEEDS, INSTRUCTED TO CALL WITH NEEDS, TELEMETRY NOTED, FAMILY AT BEDSIDE Addendum: 10/17/18 at 0547 by ARLEN LIND RN IV INFUSING PER ORDER
[2018-10-17 06:31] LABS: BASOPHILS % 0.3 % (0.0-1.0); EOSINOPHILS # (AUTO) 0.2 (0.0-0.4); EOSINOPHILS % 2.1 % (0.0-6.0); HEMATOCRIT 29.3 % (34.2-44.1); HEMOGLOBIN 9.9 g/dL (12.0-16.0); LYMPHOCYTES # (AUTO) 2.2 (1.0-3.2); LYMPHOCYTES % 20.8 % (18.0-39.1); MEAN CORPUSCULAR HEMOGLOBIN 29.5 pg (28-32); MEAN CORPUSCULAR HGB CONC 33.8 g/dL (31-35); MEAN CORPUSCULAR VOLUME 87.2 fL (81-99); MONOCYTES # (AUTO) 0.7 (0.2-0.8); MONOCYTES % 6.4 % (4.4-11.3); NEUTROPHILS # (AUTO) 7.3 (2.1-6.9); NEUTROPHILS % 69.1 % (38.7-80.0); PLATELET COUNT 391 x10e3/uL (140-360); RED BLOOD COUNT 3.36 x10e6/uL (3.6-5.1); RED CELL DISTRIBUTION WIDTH 13.9 % (11.7-14.4)
[2018-10-17 06:54] LABS: ALANINE AMINOTRANSFERASE 34 IU/L (0-55); ALBUMIN 2.1 g/dL (3.5-5.0); ALBUMIN/GLOBULIN RATIO 0.6 (0.8-2.0); ALKALINE PHOSPHATASE 126 IU/L (40-150); ANION GAP 15.3 mmol/L (8-16); BLOOD UREA NITROGEN 7 mg/dL (7-26); BUN/CREATININE RATIO 11 (6-25); CALCIUM 8.5 mg/dL (8.4-10.2); CARBON DIOXIDE 22 mmol/L (22-29); CHLORIDE 105 mmol/L (98-107); CREATININE, SERUM 0.65 mg/dL (0.57-1.11); EST GLOMERULAR FILTRATION RATE > 60 ML/MIN (60-); GLUCOSE 118 mg/dL (74-118); MAGNESIUM 1.7 MG/DL (1.3-2.1); POTASSIUM 3.3 mmol/L (3.5-5.1); SODIUM 139 mmol/L (136-145)
--- NOTE | 2018-10-17 07:17 | NUR ---
CALLED DR. Sheeba PRIDE'S OFFICE REGARDING PATIENT'S COMPLAINTS OF SEVERE PAIN IN ABDOMEN, AWAITING CALL BACK FOR ORDERS. PATIENT STATED THAT HAS NOT SLEPT AT ALL THROUGHOUT THE NIGHT.
[2018-10-17] MEDS ORDERED: BISACODYL 10 MG SUPP PR ONE ×2 (07:30→18:00)
[2018-10-17] MEDS ORDERED: HYDROMORPHONE 2MG/ML 2 MG/ML ML IV STA (07:43)
[2018-10-17 08:05] VITALS: BP 137/74
[2018-10-17] MEDS: PROPRANOLOL HCL 40 MG TAB PO SCH ×2 (08:32→16:33)
[2018-10-17] MEDS: ENOXAPARIN SOD INJ 40 MG/0.4 ML SYR SC SCH (08:32)
--- NOTE | 2018-10-17 08:55 | Diagnostic Imaging Report ---
EXAM: Abdomen 3 Views INDICATION: ^COMPLAINTS OF SEVERE GAS PAIN, R/O OBSTRUCTION COMPARISON: KUB 09/25/[address] abdomen pelvis 07/15/2018. Gradient enema 09/25/2018 FINDINGS: Mild of stool in the colon. No dilated loops of small bowel. Surgical kimberly in the abdomen and pelvis at midline. Asymmetry of the bowel with gas toward the right with possible CT of bowel with gas on the left. Surgical clips within the right and left lower quadrants. No renal calculi. No abnormal soft tissue masses. Mild degenerative changes in the lumbar spine and pelvis. IMPRESSION: 1. Nonobstructive bowel gas pattern. 2. Asymmetry of the bowel gas pattern towards the right with decrease bowel gas on the left may reflect an inflammatory process. Consider CT abdomen and pelvis if symptoms persist. Signed by: Dr. Kenia Hernandez M.D. on 10/17/2018 8:51 AM
[2018-10-17] MEDS ORDERED: POTASSIUM CHLORIDE 20 MEQ TAB CR PO ONE (11:00)
[2018-10-17 11:07] VITALS: BP 137/74
[2018-10-17 12:39] VITALS: BP 138/77
[2018-10-17] MEDS: PANTOPRAZOLE 40 MG 10ML VIAL IV SCH (13:42)
[2018-10-17 15:56] VITALS: BP 138/78
--- NOTE | 2018-10-17 19:10 | NUR ---
REPORT RECEIVED FROM OFF GOING NURSE, PT RESTING IN BED ALERT AND ORIENTED, HOB ELEVATED, FAMILY AT BEDSIDE, BED LOCKED AND LOW, IV INFUSING PER ORDER, TELEMETRY NOTED, DENIES NEEDS, CALL LIGHT IN REACH INSTRUCTED TO CALL WITH NEEDS
[2018-10-17 20:00] VITALS: BP_SYST 133; BP_SYST 136; BP_DIAS 68
[2018-10-17] MEDS: PROMETHAZINE 12.5MG/ NACL 0.9% 50 ML IV PRN (20:48)
[2018-10-18] VITALS: BP 108/56
[2018-10-18 04:00] VITALS: BP 138/73
[2018-10-18] MEDS: HYDROCODONE/APAP 7.5MG-325MG 1 EA TAB PO PRN (04:28)
--- NOTE | 2018-10-18 04:42 | NUR ---
PT SITTING UP IN BED ALERT AND ORIENTED, NO DISTRESS NOTED, DENIES NEEDS, ABD BINDER TO ABD WITH NO DRAINAGE NOTED, FAMILY AT BEDSIDE, IV INFUSING PER ORDER, TELEMETRY NOTED, CALL LIGHT IN REACH, INSTRUCTED TO CALL WITH NEEDS
[2018-10-18 06:00] LABS: ANION GAP 13.3 mmol/L (8-16); BLOOD UREA NITROGEN 6 mg/dL (7-26); BUN/CREATININE RATIO 10 (6-25); CALCIUM 8.2 mg/dL (8.4-10.2); CARBON DIOXIDE 23 mmol/L (22-29); CHLORIDE 107 mmol/L (98-107); CREATININE, SERUM 0.62 mg/dL (0.57-1.11); EST GLOMERULAR FILTRATION RATE > 60 ML/MIN (60-); GLUCOSE 120 mg/dL (74-118); MAGNESIUM 1.6 MG/DL (1.3-2.1); POTASSIUM 3.3 mmol/L (3.5-5.1); SODIUM 140 mmol/L (136-145)
[2018-10-18 08:03] VITALS: BP 142/63
[2018-10-18] MEDS: ENOXAPARIN SOD INJ 40 MG/0.4 ML SYR SC SCH (08:19)
[2018-10-18] MEDS: PROPRANOLOL HCL 40 MG TAB PO SCH (08:19)
[2018-10-18] MEDS ORDERED: SIMETHICONE 80 MG CHEW PO PRN (11:00)
[2018-10-18] MEDS ORDERED: ALPRAZOLAM 1 MG TAB PO PRN (11:15)
[2018-10-18] MEDS ORDERED: POTASSIUM CHLORIDE 20 MEQ TAB CR PO ONE (11:30)
[2018-10-18 11:39] VITALS: BP 141/73
--- NOTE | 2018-10-18 11:51 | Diagnostic Imaging Report ---
EXAM: Abdomen 3 Views INDICATION: Abdominal pain. COMPARISON: KUB 10/17/2018. FINDINGS: No dilated loops of small bowel. Surgical kimberly in the abdomen and pelvis at midline. Asymmetry of the bowel with gas toward the right with relative paucity of gas in the left is unchanged. Surgical clips within the right and left lower quadrants. Bowel gas obscures visualization of the right kidney. No evidence of renal calcifications. No abnormal soft tissue masses. Mild degenerative changes in the lumbar spine and pelvis. IMPRESSION: Nonobstructive bowel gas pattern. Similar appearance of asymmetry of the bowel gas pattern towards the right with decrease bowel gas on the left. Findings are non-specific but could reflect an inflammatory process. Suggest follow up KUB and consider CT abdomen and pelvis if symptoms persist. Signed by: Dr. Iqra Lozano MD on 10/18/2018 11:48 AM
[2018-10-18 12:03] VITALS: BP 141/73
[2018-10-18] MEDS: PANTOPRAZOLE 40 MG 10ML VIAL IV SCH (13:12)
[2018-10-18] MEDS ORDERED: TYLENOL WITH C1 EACH PO (14:11)
--- NOTE | 2018-10-18 14:15 | NUR ---
Met with patient and educated on IMM letter. She verbalized understanding and signed. Copy given to pt and original placed in chart
--- NOTE | 2018-10-18 14:55 | NUR ---
DC INSTRUCTIONS,SCRIPTS, FU APPT GIVEN VOICED UNDERSTANDING, IV DC'D PRESSURE HELD X 5 MINS SITE COVERED WITH 2X2 AND TAPE, EDUCATION RE: GI SOFT DIET GIVEN, VOICED UNDERSTANDING, PT WHEELED OUT TO FAMILY CAR LEFT IN STABLE CONDITION
--- NOTE | 2018-12-11 20:39 | Operative Report ---
DATE OF PROCEDURE: 10/12/2018 SURGEON: Farooq Vásquez MD PREOPERATIVE DIAGNOSIS: Recurring diverticulitis. POSTOPERATIVE DIAGNOSIS: Recurring diverticulitis. OPERATION PERFORMED: Exploratory laparotomy, left colectomy with mobilization of the splenic flexure. ZINC PLATE CUTTER: Dr. Clyde Vásquez. ANESTHESIA: General endotracheal. COMPLICATIONS: None. ESTIMATED BLOOD LOSS: 100 mL. DESCRIPTION OF PROCEDURE: With the patient lying in bed in the supine position under good general endotracheal anesthesia, the abdomen was prepped with Betadine solution and draped in the usual manner. A lower midline incision was made, was carried down through the subcutaneous tissue into the midline fascia. The peritoneum was opened and the abdomen was entered. Upon entering the abdominal cavity, examination revealed areas of diverticulitis that had been suspected in the sigmoid and descending colon. We decided to go ahead and proceed with resection of the left colon. The left colon was then mobilized off the lateral gutter and the left ureter was identified and preserved. Splenic flexure was then brought down with the EnSeal device and the transverse colon was mobilized all the way down to its mid segment. The distal transverse colon was then divided with an application of a ANGY stapler and the mesentery of the colon was then slowly and carefully taken down with the EnSeal device all the way down to the rectosigmoid junction at which point the colon was divided between clamps and the specimen was sent for pathological examination. The transverse colon was then brought down to the rectosigmoid junction and a posterior row of 2-0 silk seromuscular sutures placed. The staple line and clamp were then removed and an internal row of 3-0 chromic was placed. Gloves and instruments were then changed. The anastomosis was completed with an anterior row of seromuscular 3-0 silks. This gave us a satisfactory anastomosis without any tension whatsoever. The abdomen was then copiously irrigated. Hemostasis was ascertained. The excess fluid was aspirated and the abdomen was then closed in layers. The peritoneum was closed with a running suture of #1 Vicryl. The midline fascia was closed with a running suture of #1 Vicryl and the skin was closed with clips. A dressing was applied. The sponge, lap, and needle count correct. The patient tolerated the procedure well and returned to the recovery room in stable condition. MD OC Joel/GAYATHRI /[id number]
--- NOTE | 2018-12-12 04:25 | Discharge Summary ---
ADMITTING DIAGNOSES: Diverticulitis and morbid obesity. SECONDARY DIAGNOSES: Diverticulitis and morbid obesity. OPERATION PERFORMED: Exploratory laparotomy and left colectomy. COMPLICATIONS: None. HOSPITAL COURSE: This 43-year-old female was admitted to the hospital with a history of recurrent bouts of diverticulitis for resection after having had a full bowel prep. Physical examination at time of admission was remarkable for the morbid obesity. Laboratory data was otherwise within normal limits. The patient was taken to surgery on the day of admission, which she underwent an uneventful exploratory laparotomy and left colon resection. Postoperatively, she did very well. She remained afebrile, vital signs were stable. She started having bowel movements on the 3rd postoperative day and her NG tube was removed and she was started on a clear liquid diet, which was advanced to a regular diet, which she tolerated well and finally on 10/18/2018, with the patient being afebrile, vital signs being stable, her wounds healing nicely, tolerating a regular diet, and having normal bowel movements, she was discharged to go home to be followed at the office at a later date. MD OC Joel/GAYATHRI /[id number]
== END 2018-10-18 14:54 | disposition home or self-care (01) | DRG 330 ==
LOC: OR 07:07 → PACU V 13:54 → ICU 15:30 → MED/SURG 10-14 14:36
PROVIDERS: ADMIT Surgery; ATTEND Surgery
PROC: 0DTG0ZZ Resection of Left Large Intestine, Open Approach (ICD-10-PCS; principal; 2018-10-12 10:17)
DX: K57.30 Diverticulosis of large intestine without perforation or abscess without bleeding (principal); Z68.42 Body mass index [BMI] 45.0-49.9, adult; K57.32 Diverticulitis of large intestine without perforation or abscess without bleeding; I10 Essential (primary) hypertension; Z86.718 Personal history of other venous thrombosis and embolism; E66.01 Morbid (severe) obesity due to excess calories; F41.9 Anxiety disorder, unspecified; D64.9 Anemia, unspecified; Z01.810 Encounter for preprocedural cardiovascular examination; Z01.812 Encounter for preprocedural laboratory examination; Z01.811 Encounter for preprocedural respiratory examination
CPT/HCPCS: 36415; 74019; 80048; 80053; 81025; 83735; 85025; 86850; 86900; 88307; 93005; 96366; J0694; J1100; J1650; J1885; J2001; J2250; J2405; J2550

== ENCOUNTER 2019-01-22 18:11 | Emergency (ER) | payer MEDICARE ==
[~2019-01-22] VITALS: Ht 165.1 cm; Wt 135.2 kg
[~2019-01-22 18:11] MED LIST changes: +TYLENOL WITH C1 EACH PO
--- OUTSIDE RECORDS SUMMARY | 2019-01-22 18:15 | XMS REPORT | Clinical Summary ---
Author Author Ya[employer]ez [employer] Address Unknown Phone Unavailable Care Team Providers Care Hazardous Substances Engineer Name Role Phone Anshul Grey MD PCP [...] PO QD 0 tablet HS PRN 8 Active Problems Not on file Social History Date Tobacco Use Types Packs/Day Years Used Never Smoker Smokeless Tobacco: Never Used Alcohol Use Drinks/Week oz/Week Comments No Sex Assigned at Date Recorded Not on file Industry Job Start Date Occupation Not on file Not on file Not on file Travel End Travel History Travel Start No recent travel history available. Last Filed Vital Signs Not on file Plan of Treatment Health Maintenance Due Date Last Done Comments INFLUENZA VACCINE 04/01/2019 Results Not on fileafter 01/21/2018 Insurance Type Payer Benefit Subscriber ID Effective Phone Address Plan / Dates Group [facility] xxxxxxxx [id number] HERBERT fonseca Advance Directives Patient has advance care planning documents on file. For more information, jduy gonzalez contact: Otilio Alexander [address] [place] [id number]
--- NOTE | 2019-01-22 18:38 | NUR ---
REPORT TO YESSY ZAZUETA ALL QUESTIONS ANSWERED
--- NOTE | 2019-01-22 19:28 | Diagnostic Imaging Report ---
EXAM: Unilateral Lower Extremity Duplex Ultrasound January 22, 2019 INDICATION: History of clots. Left leg pain and swelling. COMPARISON: None TECHNIQUE: Kingston scale, color Doppler and spectral waveform analysis of the unilateral lower extremity deep venous system was performed. FINDINGS: Common Femoral: Fully compressible with normal spontaneous waveforms. Proximal Greater Saphenous: Fully compressible. Femoral: Fully compressible with normal spontaneous waveforms. Normal response to augmentation. Proximal Deep Femoral: Normal spontaneous waveforms. Popliteal: Fully compressible with normal spontaneous waveforms. IMPRESSION: No evidence of deep venous thrombosis above the left calf. Signed by: Dr. Charlie Calvo M.D. on 01/22/2019 7:25 PM
--- NOTE | 2019-01-22 19:56 | Diagnostic Imaging Report ---
EXAMINATION: CXR 2 VIEW - HOPD INDICATION: Lump in leg. Shortness of breath COMPARISON: July 24, 2018 FINDINGS: TUBES and LINES: None. LUNGS: Lungs are well inflated. Lungs are clear. There is no evidence of pneumonia or pulmonary edema. PLEURA: No pleural effusion or pneumothorax. HEART AND MEDIASTINUM: The cardiomediastinal silhouette is unremarkable. BONES AND SOFT TISSUES: No acute osseous lesion. Soft tissues are unremarkable. UPPER ABDOMEN: No free air under the diaphragm. IMPRESSION: No acute thoracic abnormality. Signed by: Dr. Charlie Calvo M.D. on 01/22/2019 7:53 PM
[2019-01-22 20:20] VITALS: BP 138/77
[2019-01-22] MEDS ORDERED: ETODOLAC400 MG PO (21:02)
== END 2019-01-22 21:17 | disposition home or self-care (01) ==
LOC: FSED 18:11
DX: M79.662 Pain in left lower leg (principal); I10 Essential (primary) hypertension; Z86.718 Personal history of other venous thrombosis and embolism
CPT/HCPCS: 71046; 81025; 93971; 99284

== ENCOUNTER 2020-03-12 18:27 | Emergency (ER) | payer MEDICARE ==
[~2020-03-12] VITALS: Ht 165.1 cm; Wt 135.2 kg
[~2020-03-12 18:27] MED LIST changes: +ETODOLAC400 MG PO
[2020-03-12] MEDS ORDERED: RIVAROXABAN 15 MG TABLET PO NR (19:30)
[2020-03-12] MEDS ORDERED: ACETAMIN/BUTALBITAL/CAFFEINE TAB PO ONE (19:30)
[2020-03-12 19:50] LABS: BASOPHILS % 0.3 % (0.0-1.0); EOSINOPHILS # (AUTO) 0.1 (0.0-0.4); EOSINOPHILS % 1.6 % (0.0-6.0); HEMATOCRIT 43.2 % (34.2-44.1); HEMOGLOBIN 14.3 g/dL (12.0-16.0); LYMPHOCYTES # (AUTO) 1.3 (1.0-3.2); LYMPHOCYTES % 22.7 % (18.0-39.1); MEAN CORPUSCULAR HEMOGLOBIN 29.1 pg (28-32); MEAN CORPUSCULAR HGB CONC 33.1 g/dL (31-35); MONOCYTES # (AUTO) 0.7 (0.2-0.8); MONOCYTES % 11.8 % (4.4-11.3); NEUTROPHILS # (AUTO) 3.7 (2.1-6.9); NEUTROPHILS % 63.1 % (38.7-80.0); PLATELET COUNT 331 x10e3/uL (140-360); RED BLOOD COUNT 4.91 x10e6/uL (3.6-5.1); RED CELL DISTRIBUTION WIDTH 13.7 % (11.7-14.4)
--- NOTE | 2020-03-12 19:57 | Diagnostic Imaging Report ---
EXAMINATION: CHEST SINGLE (PORTABLE) INDICATION: Chest pain COMPARISON: Chest x-ray 01/22/2019 FINDINGS: TUBES and LINES: None. LUNGS: Normal lung volumes. Subtle mid/lower lung hazy and reticular opacities PLEURA: No pleural effusion or pneumothorax. HEART AND MEDIASTINUM: The cardiomediastinal silhouette is unremarkable. Aortic calcifications. BONES AND SOFT TISSUES: No acute osseous lesion. Soft tissues are unremarkable. UPPER ABDOMEN: No free air under the diaphragm. IMPRESSION: Subtle mid/lower lung hazy and reticular opacities can be due to atelectasis or pneumonia. Signed by: Mikal Lam DO on 03/12/2020 7:54 PM
[2020-03-12 20:06] LABS: INR 0.89; PROTHROMBIN TIME 12.6 seconds (11.9-14.5)
[2020-03-12 20:07] LABS: PARTIAL THROMBOPLASTIN TIME 27.3 seconds (23.8-35.5)
[2020-03-12 20:14] LABS: ALANINE AMINOTRANSFERASE 45 IU/L (0-55); ALBUMIN 3.5 g/dL (3.5-5.0); ALKALINE PHOSPHATASE 73 IU/L (40-150); BLOOD UREA NITROGEN 12 mg/dL (7-26); BUN/CREATININE RATIO 15 (6-25); CARBON DIOXIDE 22 mmol/L (22-29); CHLORIDE 108 mmol/L (98-107); CREATINE KINASE 11 IU/L (29-168); CREATININE, SERUM 0.82 mg/dL (0.57-1.11); EST GLOMERULAR FILTRATION RATE > 60 ML/MIN (60-); GLUCOSE 109 mg/dL (74-118); SODIUM 138 mmol/L (136-145)
[2020-03-12] MEDS ORDERED: IOPAMIDOL 370 MG/ML 200 ML INFUS..BTL INJ ONE (21:45)
[2020-03-12] MEDS ORDERED: SODIUM CHLORIDE 0.9% 50ML 50 ML ONE (21:45)
--- NOTE | 2020-03-12 23:01 | Diagnostic Imaging Report ---
EXAM: CT Chest WITH contrast (PE clinical) 03/12/2020 10:00 PM INDICATION: Chest pain, history of PE COMPARISON: same-day chest x-ray TECHNIQUE: Chest was scanned utilizing a multidetector helical scanner from the lung apex through the level of the diaphragm after administration of IV contrast. Thin section reconstructions were obtained with special concentration on the pulmonary arteries. Coronal and sagittal reformations were obtained. Pulmonary embolism protocol was performed. IV CONTRAST: 100 mL of Isovue 370 COMPLICATIONS: None RADIATION DOSE: Total DLP: 498 mGy*cm Estimated effective dose: (DLP x 0.014 x size factor) mSv CTDIvol has been reviewed. It is below the limits set by the Radiation Protocol Committee (RPC). Dose modulation, iterative reconstruction, and/or weight based adjustment of the mA/kV was utilized to reduce the radiation dose to as low as reasonably achievable. FINDINGS: LINES/ TUBES: None. LUNGS AND AIRWAYS: No pulmonary arterial filling defects Scattered patchy groundglass opacities in both lungs. Low lung volumes. Low lung volumes. Airways are normal. PLEURA: The pleural spaces are clear. HEART AND MEDIASTINUM: The thyroid gland is normal. No mediastinal, hilar or axillary lymphadenopathy. Mild cardiomegaly There is no pericardial effusion. Main pulmonary artery mildly dilated, 3.4 cm in diameter. UPPER ABDOMEN: Mildly enlarged spleen and liver. Hypodense liver.. BONES: There are degenerative changes in the spine. SOFT TISSUES: Unremarkable. IMPRESSION: Findings compatible with multifocal pneumonia, likely viral. Low lung volumes. Dilated main pulmonary artery and mild cardiomegaly can be seen with pulmonary hypertension. Correlate for obstructive sleep apnea/obesity hypoventilation syndrome. Hepatic steatosis with hepatosplenomegaly Signed by: Mikal Lam DO on 03/12/2020 10:58 PM
[2020-03-12] MEDS ORDERED: AZITHROMYCIN250 MG PO (23:34)
--- NOTE | 2020-03-12 23:37 | Emergency Department Note ---
History of Present Illnes History of Present Illness Chief Complaint: COVID PUI History of Present Illness This is a 44 year old female arrives to the ED with complaints of cough fever and shortness of breath. Patient states she is concerned she has a pulmonary embolus. Patient states she was on Xarelto for 6 month after her last surgery is concerned she is having another PE. . Historian: Patient Arrival Mode: Car Onset (how long ago): day(s) Onset quality: gradual Duration (how long): day(s) Timing of current episode: constant Progression: unchanged Chronicity: recurrent Relieving factors: none Past Medical/Family History Physician Review I have reviewed the patient's past medical and family history. Any updates have been documented here. Past Medical History Recent Fever: No Clinical Suspicion of Infectio: Yes New/Unexplained Change in Ment: No Past Medical History: Hypertension, Anxiety Other Medical History: SLEEP APNEA - NONCOMPLAINT WITH CPAP BLOOD CLOTS DIVERTICULITIS Past Surgical History: Tubal Ligation Other Surgery: PENICULECTOMY Social History Smoking Cessation: Former smoker Alcohol Use: Social Physically hurt or threatened: No Other Last Tetanus: UTD Review of Systems Review of Systems Constitutional: Reports as per HPI, Reports chills, Reports fever EENTM: Reports no symptoms Cardiovascular: Reports no symptoms Respiratory: Reports as per HPI, Reports cough Gastrointestinal: Reports no symptoms Genitourinary: Reports no symptoms Musculoskeletal: Reports no symptoms Integumentary: Reports no symptoms Neurological: Reports no symptoms Psychological: Reports no symptoms Endocrine: Reports no symptoms Hematological/Lymphatic: Reports no symptoms Physical Exam Related Data Allergies: Coded Allergies: No Known Allergies (Unverified , 12/26/17) Triage Vital Signs Vital Signs Date Time Temp Pulse Resp B/P (MAP) Pulse Ox O2 Delivery O2 Flow Rate FiO2 03/12/20 19:03 98.6 124 24 146/109 98 Room Air Vital signs reviewed: Yes Physical Exam CONSTITUTIONAL Constitutional: Present well-developed, Present well-nourished, Present morbidly obese HENT HENT: Present normocephalic, Present atraumatic, Present oropharynx clear/moist, Present nose normal HENT L/R: Present left ext ear normal, Present right ext ear normal EYES Eyes: Reports PERRL, Reports conjunctivae normal NECK Neck: Present ROM normal PULMONARY Pulmonary: Present effort normal, Present breath sounds normal CARDIOVASCULAR Cardiovascular: Present regular rhythm, Present heart sounds normal, Present capillary refill normal, Present normal rate GASTROINTESTINAL Abdominal: Present soft, Present nontender, Present bowel sounds normal GENITOURINARY Genitourinary: Present exam deferred SKIN Skin: Present warm, Present dry MUSCULOSKELETAL Musculoskeletal: Present ROM normal NEUROLOGICAL Neurological: Present alert, Present oriented x 3, Present no gross motor or sensory deficits PSYCHOLOGICAL Psychological: Present mood/affect normal, Present judgement normal Results Laboratory Result Diagram: 03/12/20190103/12/201901 Laboratory Laboratory Tests Test 03/12/20 19:02 White Blood Count 5.78 x10e3/uL (4.8-10.8) Red Blood Count 4.91 x10e6/uL (3.6-5.1) Hemoglobin 14.3 g/dL (12.0-16.0) Hematocrit 43.2 % (34.2-44.1) Mean Corpuscular Volume 88.0 fL (81-99) Mean Corpuscular Hemoglobin 29.1 pg (28-32) Mean Corpuscular Hemoglobin Concent 33.1 g/dL (31-35) Red Cell Distribution Width 13.7 % (11.7-14.4) Platelet Count 331 x10e3/uL (140-360) Neutrophils (%) (Auto) 63.1 % (38.7-80.0) Lymphocytes (%) (Auto) 22.7 % (18.0-39.1) Monocytes (%) (Auto) 11.8 % (4.4-11.3) Eosinophils (%) (Auto) 1.6 % (0.0-6.0) Basophils (%) (Auto) 0.3 % (0.0-1.0) Neutrophils # (Auto) 3.7 (2.1-6.9) Lymphocytes # (Auto) 1.3 (1.0-3.2) Monocytes # (Auto) 0.7 (0.2-0.8) Eosinophils # (Auto) 0.1 (0.0-0.4) Basophils # (Auto) 0.0 (0.0-0.1) Absolute Immature Granulocyte (auto 0.03 x10e3/uL (0-0.1) Prothrombin Time 12.6 seconds (11.9-14.5) Prothromb Time International Ratio 0.89 Activated Partial Thromboplast Time 27.3 seconds (23.8-35.5) D-Dimer Quantitative (PE/DVT) 453 ng/mL (0-400) Sodium Level 138 mmol/L (136-145) Potassium Level 4.0 mmol/L (3.5-5.1) Chloride Level 108 mmol/L (98-107) Carbon Dioxide Level 22 mmol/L (22-29) Anion Gap 12.0 mmol/L (8-16) Blood Urea Nitrogen 12 mg/dL (7-26) Creatinine 0.82 mg/dL (0.57-1.11) Estimat Glomerular Filtration Rate > 60 ML/MIN (60-) BUN/Creatinine Ratio 15 (6-25) Glucose Level 109 mg/dL (74-118) Calcium Level 9.0 mg/dL (8.4-10.2) Total Bilirubin 0.6 mg/dL (0.2-1.2) Aspartate Amino Transf (AST/SGOT) 28 IU/L (5-34) Alanine Aminotransferase (ALT/SGPT) 45 IU/L (0-55) Alkaline Phosphatase 73 IU/L (40-150) Creatine Kinase 11 IU/L (29-168) Creatine Kinase MB 0.80 ng/mL (0-5.0) Troponin I < 0.001 ng/mL (0-0.300) B-Type Natriuretic Peptide < 10.0 pg/mL (0-100) Total Protein 7.0 g/dL (6.5-8.1) Albumin 3.5 g/dL (3.5-5.0) Globulin 3.5 g/dL (2.3-3.5) Albumin/Globulin Ratio 1.0 (0.8-2.0) Lab results reviewed: Yes Imaging Imaging results reviewed: Yes Impressions IMPRESSION: Findings compatible with multifocal pneumonia, likely viral. Low lung volumes. Dilated main pulmonary artery and mild cardiomegaly can be seen with pulmonary hypertension. Correlate for obstructive sleep apnea/obesity hypoventilation syndrome. Hepatic steatosis with hepatosplenomegaly Signed by: Mikal Lam DO on 03/12/2020 10:58 PM Assessment & Plan Medical Decision Making MDM 44-year-old female arrived to the ED with cough shortness of breath, clinically patient appeared positive for Coban 19 patient's sister she feels she's having a pulmonary embolus. As a result CT chest was performed which was consistent with Coban 19. Patient does not require supplement oxygen. Patient well-appearing full sentences and hemodynamically stable for discharge home. Patient informed she is positive until proven otherwise. Patient's oxygen saturation remained 99% even on exertion, no evidence of tachypnea or dyspnea noted in the ED. Spoke present length about the importance of sleeping on his stomach and rotating from side to side. Z-Hans given, signs and symptoms for return discussed. Assessment & Plan Final Impression: (1) COVID-19 Depart Disposition: HOME, SELF-CARE Last Vital Signs Date Time Temp Pulse Resp B/P (MAP) Pulse Ox O2 Delivery O2 Flow Rate FiO2 03/12/20 19:03 98.6 124 24 146/109 98 Room Air Home Meds Active Scripts Etodolac (ETODOLAC) 400 Mg Tablet, 1 TAB PO Q8H for pain and inflammation, #30 TAB 0 Refills Take with food. Prov:BRI GAMEZ MD 01/22/19 Reported Medications Acetaminophen With Codeine (TYLENOL WITH CODEINE #3 TABLET) 1 Each Tablet, 300 MG PO Q4HR PRN for PAIN, TAB 10/18/18 Magnesium Hydroxide (MILK OF MAGNESIA) 2,400 Mg/10 Ml Oral.susp, PO HS 10/09/18 Propranolol Hcl (PROPRANOLOL HCL) 40 Mg Tablet, 40 MG PO BID, #60 TAB 06/23/17 Medications in the ED Rivaroxaban 15 mg ONCE PO ; Start 03/12/20 at 19:30; Stop 03/12/20 at 20:58; Status DC Acetaminophen/ Butalbital/ Caffeine 1 ea ONCE ONCE PO Last administered on 03/12/20at 21:58; Admin Dose 1 EA; Start 03/12/20 at 19:30; Stop 03/12/20 at 19:31; Status DC Sodium Chloride 50 ml @ ud STK-MED ONCE .ROUTE ; Start 03/12/20 at 21:45; Stop 03/12/20 at 21:39; Status DC Iopamidol 74,000 mg STK-MED ONCE INJ ; Start 03/12/20 at 21:45; Stop 03/12/20 at 21:40; Status DC BRISEYDA CEDENO, Mar 12, 2020 23:37
== END 2020-03-13 00:30 | disposition home or self-care (01) ==
LOC: ER 18:49
DX: U07.1 COVID-19 (principal); R50.9 Fever, unspecified; R05 Cough; R06.02 Shortness of breath; I10 Essential (primary) hypertension; F41.9 Anxiety disorder, unspecified; G47.30 Sleep apnea, unspecified
CPT/HCPCS: 36415; 71045; 71260; 80053; 82550; 82553; 83880; 84484; 85025; 85379; 85610; 85730; 93005; 99284; Q9967

== ENCOUNTER 2020-09-25 15:40 | Emergency (ER) | payer MEDICARE ==
[~2020-09-25] VITALS: Ht 165.1 cm; Wt 135.2 kg
[~2020-09-25 15:40] MED LIST changes: +AZITHROMYCIN250 MG PO
[2020-09-25] MEDS ORDERED: KETOROLAC TROMETHAMINE 30 MG/ML VIAL IV STA (17:56)
[2020-09-25] MEDS ORDERED: SODIUM CHLORIDE 0.9% 1000ML 1,000 ML IV STA (17:56)
[2020-09-25] MEDS ORDERED: SODIUM CHLORIDE FLUSH 10 ML SYR INJ PRN (18:00)
[2020-09-25] MEDS ORDERED: KETOROLAC TROMETHAMINE 30 MG/ML VIAL ONE (18:43)
[2020-09-25] MEDS ORDERED: SODIUM CHLORIDE 0.9% 1000ML 1,000 ML ONE (18:43)
[2020-09-25] MEDS ORDERED: CYCLOBENZAPRINE HCL 10 MG TAB PO ONE (20:15)
[2020-09-25] MEDS ORDERED: CYCLOBENZAPRINE5 MG PO (20:38)
[2020-09-25] MEDS ORDERED: PREDNISONE20 MG PO (20:38)
[2020-09-25] MEDS ORDERED: FIORICET 50-301 EACH PO (20:38)
[2020-09-25] MEDS ORDERED: CYCLOBENZAPRINE HCL 10 MG TAB ONE (20:56)
== END 2020-09-25 20:58 | disposition home or self-care (01) ==
LOC: FSED 16:50
DX: S29.012A Strain of muscle and tendon of back wall of thorax, initial encounter (principal); G43.909 Migraine, unspecified, not intractable, without status migrainosus
CPT/HCPCS: 70450; 71260; 80048; 80076; 81003; 81025; 82553; 83880; 84484; 85025; 85379; 93005; 99284; J1885; J7030

== ENCOUNTER 2021-09-10 17:44 | Emergency (ER) | payer MEDICARE ==
[~2021-09-10] VITALS: Ht 165.1 cm; Wt 135.2 kg
[~2021-09-10 17:44] MED LIST changes: +CYCLOBENZAPRINE5 MG PO; +FIORICET 50-301 EACH PO; +PREDNISONE20 MG PO
[2021-09-10] MEDS ORDERED: Morphine 4mg Syringe 4 MG/ML INJ IV STA (18:27)
[2021-09-10] MEDS ORDERED: SODIUM CHLORIDE 0.9% 1000ML 1,000 ML IV STA (18:27)
[2021-09-10] MEDS ORDERED: ONDANSETRON HCL INJ 2MG/ML 2ML 2 MG/ML VIAL IV STA (18:27)
[2021-09-10 18:56] LABS: BASOPHILS % 0.5 % (0.0-1.0); EOSINOPHILS # (AUTO) 0.2 (0.0-0.4); HEMATOCRIT 43.4 % (34.2-44.1); LYMPHOCYTES # (AUTO) 2.9 (1.0-3.2); LYMPHOCYTES % 38.1 % (18.0-39.1); MEAN CORPUSCULAR HEMOGLOBIN 30.3 pg (28-32); MEAN CORPUSCULAR HGB CONC 32.3 g/dL (31-35); MEAN CORPUSCULAR VOLUME 93.9 fL (81-99); MONOCYTES # (AUTO) 0.5 (0.2-0.8); MONOCYTES % 6.7 % (4.4-11.3); NEUTROPHILS # (AUTO) 3.9 (2.1-6.9); NEUTROPHILS % 52.3 % (38.7-80.0); PLATELET COUNT 347 x10e3/uL (140-360); RED BLOOD COUNT 4.62 x10e6/uL (3.6-5.1); RED CELL DISTRIBUTION WIDTH 13.4 % (11.7-14.4)
[2021-09-10 19:12] LABS: ALBUMIN 3.8 g/dL (3.5-5.0); ALBUMIN/GLOBULIN RATIO 1.2 (0.8-2.0); ANION GAP 10.8 mmol/L (8-16); CALCIUM 9.3 mg/dL (8.4-10.2); CREATININE, SERUM 0.85 mg/dL (0.57-1.11); POTASSIUM 3.8 mmol/L (3.5-5.1)
[2021-09-10] MEDS ORDERED: IOPAMIDOL 370 MG/ML 200 ML INFUS..BTL INJ ONE (19:35)
[2021-09-10] MEDS ORDERED: SODIUM CHLORIDE 0.9% 50ML 50 ML ONE (19:35)
[2021-09-10 22:05] LABS: CLARITY,URINE CLEAR (CLEAR); COLOR,URINE YELLOW (YELLOW); KETONES,URINE NEGATIVE (NEGATIVE); LEUKOCYTE ESTERASE ,URINE NEGATIVE (NEGATIVE); NITRITE,URINE NEGATIVE (NEGATIVE); PROTEIN,URINE DIPSTICK NEGATIVE (NEGATIVE); URINE UROBILINOGEN 0.2 mg/dL (0.2 - 1)
[2021-09-10 22:14] LABS: BACTERIA,URINE FEW /HPF; EPITHELIAL CELLS,URINE MANY /LPF; WBC,URINE (MAN) 0-5 /HPF (0-5)
== END 2021-09-10 22:57 | disposition home or self-care (01) ==
LOC: ER 18:15
DX: R10.32 Left lower quadrant pain (principal); R11.0 Nausea; K59.00 Constipation, unspecified; E66.9 Obesity, unspecified; Z68.42 Body mass index [BMI] 45.0-49.9, adult; Z87.19 Personal history of other diseases of the digestive system
CPT/HCPCS: 36415; 71045; 74177; 80053; 81001; 83690; 85025; 99284; Q9967

== ENCOUNTER 2022-06-27 15:21 | Emergency (ER) | payer MEDICARE ==
[~2022-06-27] VITALS: Ht 167.6 cm; Wt 131.8 kg
[2022-06-27] MEDS ORDERED: NEURONTIN300 MG PO (16:04)
[2022-06-27] MEDS ORDERED: TIZANIDINE HCL4 MG PO (16:04)
[2022-06-27] MEDS ORDERED: FAMOTIDINE 20 MG/2 ML VIAL IV STA (17:12)
[2022-06-27] MEDS ORDERED: ONDANSETRON HCL INJ 2MG/ML 2ML 2 MG/ML VIAL IV STA (17:12)
[2022-06-27] MEDS ORDERED: KETOROLAC TROMETHAMINE 30 MG/ML VIAL IV STA (17:12)
[2022-06-27] MEDS ORDERED: SODIUM CHLORIDE 0.9% 1000ML 1,000 ML IV SCH (17:15)
[2022-06-27] MEDS ORDERED: PANTOPRAZOLE SO40 MG PO (18:35)
[2022-06-27] MEDS ORDERED: CARAFATE1 GM/10 ML PO (18:36)
== END 2022-06-27 18:49 | disposition home or self-care (01) ==
LOC: FSED 15:40
DX: R10.11 Right upper quadrant pain (principal); K29.70 Gastritis, unspecified, without bleeding; N20.0 Calculus of kidney; R11.0 Nausea; R16.0 Hepatomegaly, not elsewhere classified; I10 Essential (primary) hypertension; E66.9 Obesity, unspecified
CPT/HCPCS: 74176; 80048; 80076; 81003; 81025; 82553; 84484; 85025; 93005; 96374; 96375; 99284; J1885; J2405; J7030

== ENCOUNTER 2022-09-25 15:33 | Emergency (ER) | payer MEDICARE ==
[~2022-09-25] VITALS: Ht 167.6 cm; Wt 131.1 kg
[~2022-09-25 15:33] MED LIST changes: +CARAFATE1 GM/10 ML PO; +NEURONTIN300 MG PO; +PANTOPRAZOLE SO40 MG PO; +TIZANIDINE HCL4 MG PO
[2022-09-25] MEDS ORDERED: BENZONATATE200 MG PO (16:31)
[2022-09-25] MEDS ORDERED: CEFDINIR300 MG PO (16:31)
[2022-09-25] MEDS ORDERED: VENTOLIN HFA18 GM INH (16:31)
== END 2022-09-25 17:03 | disposition home or self-care (01) ==
LOC: FSED 15:37
DX: R05.9 Cough, unspecified (principal); J40 Bronchitis, not specified as acute or chronic; J06.9 Acute upper respiratory infection, unspecified; E66.9 Obesity, unspecified; I10 Essential (primary) hypertension; K21.9 Gastro-esophageal reflux disease without esophagitis; F41.9 Anxiety disorder, unspecified; G47.30 Sleep apnea, unspecified; M25.562 Pain in left knee; M25.561 Pain in right knee; G89.29 Other chronic pain
CPT/HCPCS: 71046; 83518; 87400; 99283

== ENCOUNTER 2022-11-11 19:14 | Emergency (ER) | payer MEDICARE ==
[~2022-11-11] VITALS: Ht 167.6 cm; Wt 131.1 kg
[~2022-11-11 19:14] MED LIST changes: +BENZONATATE200 MG PO; +CEFDINIR300 MG PO; +VENTOLIN HFA18 GM INH
[2022-11-11] MEDS ORDERED: ONDANSETRON HCL INJ 2MG/ML 2ML 2 MG/ML VIAL IV STA (19:24)
[2022-11-11] MEDS ORDERED: Morphine 4mg INJECTION 4 MG/ML INJ IV ONE (19:30)
[2022-11-11] MEDS ORDERED: SODIUM CHLORIDE 0.9% 1000ML 1,000 ML IV ONE (19:30)
[2022-11-11 19:48] LABS: CLARITY,URINE SL CLOUDY (CLEAR); COLOR,URINE YELLOW (YELLOW); KETONES,URINE NEGATIVE (NEGATIVE); LEUKOCYTE ESTERASE ,URINE NEGATIVE (NEGATIVE); NITRITE,URINE NEGATIVE (NEGATIVE); PROTEIN,URINE DIPSTICK NEGATIVE (NEGATIVE); URINE UROBILINOGEN 0.2 mg/dL (0.2 - 1)
[2022-11-11 19:55] LABS: BASOPHILS # (AUTO) 0.1 (0.0-0.1); BASOPHILS % 0.6 % (0.0-1.0); EOSINOPHILS # (AUTO) 0.1 (0.0-0.4); EOSINOPHILS % 1.4 % (0.0-6.0); HEMATOCRIT 42.8 % (34.2-44.1); HEMOGLOBIN 14.7 g/dL (12.0-16.0); LYMPHOCYTES # (AUTO) 3.7 (1.0-3.2); LYMPHOCYTES % 35.9 % (18.0-39.1); MEAN CORPUSCULAR HEMOGLOBIN 29.7 pg (28-32); MEAN CORPUSCULAR HGB CONC 34.3 g/dL (31-35); MEAN CORPUSCULAR VOLUME 86.5 fL (81-99); MONOCYTES # (AUTO) 0.7 (0.2-0.8); NEUTROPHILS # (AUTO) 5.6 (2.1-6.9); NEUTROPHILS % 54.9 % (38.7-80.0); PLATELET COUNT 410 x10e3/uL (140-360); RED BLOOD COUNT 4.95 x10e6/uL (3.6-5.1); RED CELL DISTRIBUTION WIDTH 12.6 % (11.7-14.4)
[2022-11-11 19:59] LABS: BACTERIA,URINE MANY /HPF; EPITHELIAL CELLS,URINE MODERATE /LPF
[2022-11-11 20:06] LABS: ALBUMIN 4.2 g/dL (3.5-5.0); ALBUMIN/GLOBULIN RATIO 1.4 (0.8-2.0); ANION GAP 16.4 mmol/L (8-16); CALCIUM 8.6 mg/dL (8.4-10.2); CREATININE, SERUM 0.79 mg/dL (0.57-1.11); POTASSIUM 3.4 mmol/L (3.5-5.1)
[2022-11-11] MEDS ORDERED: IOPAMIDOL 370 MG/ML 100 ML INFUS..BTL INJ ONE (20:19)
[2022-11-11] MEDS ORDERED: DIATRIZOATE MEGL/DIATRIZOA SOD 30 ML BTL PO ONE (20:21)
[2022-11-11] MEDS ORDERED: ONDANSETRON ODT4 MG PO (23:14)
[2022-11-11 23:30] VITALS: BP 116/76
== END 2022-11-11 23:23 | disposition home or self-care (01) ==
LOC: ER 19:47
DX: K21.9 Gastro-esophageal reflux disease without esophagitis (principal); Z86.718 Personal history of other venous thrombosis and embolism; Z79.01 Long term (current) use of anticoagulants; Z86.711 Personal history of pulmonary embolism; G89.29 Other chronic pain; G47.30 Sleep apnea, unspecified; Z91.199 Patient's noncompliance with other medical treatment and regimen due to unspecified reason; E66.01 Morbid (severe) obesity due to excess calories; Z68.42 Body mass index [BMI] 45.0-49.9, adult
CPT/HCPCS: 36415; 74177; 80053; 81001; 83690; 85025; 99284; J2270; J2405; J7030; Q9963; Q9967

== ENCOUNTER 2023-01-29 12:28 | Emergency (ER) | payer MEDICARE ==
[~2023-01-29] VITALS: Ht 165.1 cm; Wt 131.5 kg
[~2023-01-29 12:28] MED LIST changes: +ONDANSETRON ODT4 MG PO
[2023-01-29 12:40] VITALS: O2SAT 99
[2023-01-29] MEDS ORDERED: PREDNISONE 20 MG TAB ONE (14:09)
[2023-01-29] MEDS ORDERED: KETOROLAC TROMETHAMINE 60 MG/2 ML VIAL ONE (14:09)
[2023-01-29] MEDS ORDERED: KETOROLAC TROMETHAMINE 60 MG/2 ML VIAL IM ONE (14:15)
[2023-01-29] MEDS ORDERED: PREDNISONE50 MG PO (14:56)
[2023-01-30] MEDS ORDERED: PREDNISONE 20 MG TAB PO SCH (09:00)
== END 2023-01-29 15:12 | disposition home or self-care (01) ==
LOC: FSED 12:34
DX: M54.16 Radiculopathy, lumbar region (principal); I10 Essential (primary) hypertension; K21.9 Gastro-esophageal reflux disease without esophagitis; E66.9 Obesity, unspecified; F41.9 Anxiety disorder, unspecified; G47.30 Sleep apnea, unspecified; M25.562 Pain in left knee; M25.561 Pain in right knee; M54.9 Dorsalgia, unspecified; G89.29 Other chronic pain; E66.01 Morbid (severe) obesity due to excess calories; Z87.19 Personal history of other diseases of the digestive system
CPT/HCPCS: 99283; J1885; J7512

== ENCOUNTER 2024-06-17 08:58 | Inpatient (IN) | payer MEDICARE, OTHER ==
[~2024-06-17] VITALS: Ht 152.4 cm; Wt 130.2 kg
[~2024-06-17 08:58] MED LIST changes: +PREDNISONE50 MG PO
[2024-06-17 09:00] VITALS: PULSE 90; RESP 17; TEMP 97.4
[2024-06-17] MEDS: ONDANSETRON HCL INJ 2MG/ML 2ML 2 MG/ML VIAL IV STA (10:20)
[2024-06-17] MEDS: SODIUM CHLORIDE 0.9% 1000ML 1,000 ML IV ONE (10:20)
[2024-06-17] MEDS: KETOROLAC TROMETHAMINE 30 MG/ML VIAL IV STA (10:21)
[2024-06-17] MEDS: FAMOTIDINE 20 MG/2 ML VIAL IV STA (10:21)
[2024-06-17] MEDS ORDERED: Morphine 4mg INJECTION 4 MG/ML INJ IV PRN (13:15)
[2024-06-17] MEDS ORDERED: D5.45%NS/KCL 20MEQ 1,000 ML IV SCH (13:15)
[2024-06-17] MEDS ORDERED: Morphine 2mg Syringe 2 MG/ML SYR IV PRN (13:15)
[2024-06-17 15:30] VITALS: BP 157/93; PULSE 79; RESP 18; TEMP 97.7; O2SAT 100
[2024-06-17] MEDS ORDERED: NEURONTIN400 MG PO (15:54)
[2024-06-17] MEDS ORDERED: HYDROCODON-ACE1 EAC9 PO (15:54)
[2024-06-17] MEDS ORDERED: ACETAMINOPHEN 1000 MG/100 ML IV PRN (16:00)
[2024-06-17 16:44] VITALS: BP 151/93; PULSE 79; RESP 18; TEMP 97.7; O2SAT 100
[2024-06-17 20:00] VITALS: BP 132/96; PULSE 73; RESP 20; TEMP 97.4; O2SAT 98
[2024-06-17 21:00] VITALS: BP 132/96; PULSE 73; RESP 18; TEMP 97.2; O2SAT 100
[2024-06-18] MEDS: Morphine 4mg INJECTION 4 MG/ML INJ IV PRN (00:27)
[2024-06-18] MEDS: ONDANSETRON HCL INJ 2MG/ML 2ML 2 MG/ML VIAL IV PRN (00:28)
[2024-06-18] MEDS: PROPRANOLOL HCL 40 MG TAB PO SCH (00:37)
[2024-06-18] MEDS: D5.45%NS/KCL 20MEQ 1,000 ML IV SCH (01:00)
[2024-06-18 01:22] LABS: BASOPHILS % 0.3 % (0.0-1.0); EOSINOPHILS # (AUTO) 0.5 (0.0-0.4); EOSINOPHILS % 5.9 % (0.0-6.0); HEMATOCRIT 36.5 % (34.2-44.1); HEMOGLOBIN 12.4 g/dL (12.0-16.0); LYMPHOCYTES # (AUTO) 3.3 (1.0-3.2); LYMPHOCYTES % 38.8 % (18.0-39.1); MEAN CORPUSCULAR HEMOGLOBIN 31.2 pg (28-32); MEAN CORPUSCULAR VOLUME 91.9 fL (81-99); MONOCYTES # (AUTO) 0.7 (0.2-0.8); MONOCYTES % 8.4 % (4.4-11.3); NEUTROPHILS % 46.3 % (38.7-80.0); PLATELET COUNT 357 x10e3/uL (140-360); RED BLOOD COUNT 3.97 x10e6/uL (3.6-5.1); RED CELL DISTRIBUTION WIDTH 13.3 % (11.7-14.4); WHITE BLOOD COUNT 8.59 x10e3/uL (4.8-10.8)
[2024-06-18 01:33] LABS: ANION GAP 14.4 mmol/L (8-16); CALCIUM 9.1 mg/dL (8.4-10.2); CREATININE, SERUM 0.78 mg/dL (0.57-1.11)
[2024-06-18 01:38] LABS: POTASSIUM 3.4 mmol/L (3.5-5.1)
[2024-06-18 01:58] LABS: INR 1.09; PROTHROMBIN TIME 14.7 seconds (11.9-14.5)
[2024-06-18 01:59] LABS: PARTIAL THROMBOPLASTIN TIME 31.3 seconds (23.8-35.5)
[2024-06-18 03:38] VITALS: BP 129/72; PULSE 88; RESP 18; TEMP 97.8; O2SAT 100
[2024-06-18 08:26] VITALS: BP 131/78; PULSE 65; RESP 18; TEMP 97.8; O2SAT 97
[2024-06-18 08:53] VITALS: BP 131/78; PULSE 65; RESP 18; TEMP 97.8; O2SAT 97
[2024-06-18] MEDS ORDERED: BUPIVACAINE 0.5%/EPI 30 ML SDV INJ ONE (10:25)
[2024-06-18] MEDS ORDERED: FAMOTIDINE 20 MG/2 ML VIAL IV ONE (12:23)
[2024-06-18] MEDS: FENTANYL CITRATE/PF 100MCG/2 ML INJ ONE (12:40)
[2024-06-18] MEDS: METOCLOPRAMIDE HCL 10 MG/2ML VIAL ONE (12:40)
[2024-06-18] MEDS: PROMETHAZINE HCL (IM) 25 MG/ML VIAL IM ONE (12:55)
[2024-06-18] MEDS ORDERED: ONDANSETRON HCL INJ 2MG/ML 2ML 2 MG/ML VIAL IV PRN (13:15)
[2024-06-18] MEDS ORDERED: ACETAMINOPHEN 1000 MG/100 ML IV ONE (13:51)
[2024-06-18] MEDS ORDERED: DEXAMETHASONE SOD PHOS INJ 4 MG/ML SDV ONE (13:51)
[2024-06-18] MEDS ORDERED: ONDANSETRON HCL INJ 2MG/ML 2ML 2 MG/ML VIAL ONE (13:51)
[2024-06-18] MEDS ORDERED: ROCURONIUM BROMIDE 10 MG/ML 5ML VIAL IV ONE (13:51)
[2024-06-18] MEDS ORDERED: KETOROLAC TROMETHAMINE 30 MG/ML VIAL ONE (13:51)
[2024-06-18] MEDS ORDERED: SUGAMMADEX SODIUM 200 MG/2 ML VIAL IV ONE (13:51)
[2024-06-18] MEDS ORDERED: SUCCINYLCHOLINE CHLORIDE 20 MG/ML 10ML VIAL ONE (13:51)
[2024-06-18] MEDS ORDERED: LIDOCAINE HCL 2% LOCAL INJ 5 ML SDV VIAL INJ ONE (13:51)
[2024-06-18] MEDS ORDERED: PROPOFOL IV EMULSION 10 MG/ML 20 ML VIAL ONE (13:51)
[2024-06-18] MEDS ORDERED: SEVOFLURANE INHAL SOLN 250 ML PEN BTL ONE (13:51)
[2024-06-18] MEDS: SODIUM CHLORIDE 0.9% 1000ML 1,000 ML IV SCH (13:56)
[2024-06-18] MEDS: HYDROCODONE/APAP 7.5MG-325MG 1 EA TAB PO PRN (15:20)
[2024-06-18 15:28] VITALS: BP 150/89; PULSE 70; RESP 16; TEMP 97.7; O2SAT 95
[2024-06-18] MEDS: KETOROLAC TROMETHAMINE 30 MG/ML VIAL IV PRN (17:32)
[2024-06-18 20:00] VITALS: BP 126/80; PULSE 68; RESP 16; TEMP 98.6; O2SAT 100
[2024-06-19] VITALS (8 sets, daily range): BP systolic 115–149; BP diastolic 62–77; PULSE 24–86; RESP 16–20; TEMP 97.3–98.2; O2SAT 97–99
[2024-06-19 06:58] LABS: BASOPHILS % 0.2 % (0.0-1.0); EOSINOPHILS # (AUTO) 0.1 (0.0-0.4); EOSINOPHILS % 0.8 % (0.0-6.0); HEMATOCRIT 32.1 % (34.2-44.1); HEMOGLOBIN 10.7 g/dL (12.0-16.0); LYMPHOCYTES # (AUTO) 1.7 (1.0-3.2); LYMPHOCYTES % 16.8 % (18.0-39.1); MEAN CORPUSCULAR HGB CONC 33.3 g/dL (31-35); MONOCYTES # (AUTO) 0.9 (0.2-0.8); MONOCYTES % 8.3 % (4.4-11.3); NEUTROPHILS # (AUTO) 7.6 (2.1-6.9); NEUTROPHILS % 73.4 % (38.7-80.0); PLATELET COUNT 316 x10e3/uL (140-360); RED BLOOD COUNT 3.45 x10e6/uL (3.6-5.1); RED CELL DISTRIBUTION WIDTH 13.7 % (11.7-14.4)
[2024-06-19 07:25] LABS: ALBUMIN 2.7 g/dL (3.5-5.0); ALBUMIN/GLOBULIN RATIO 1.2 (0.8-2.0); ANION GAP 11.3 mmol/L (8-16); BILIRUBIN,TOTAL 1.2 mg/dL (0.2-1.2); CALCIUM 7.8 mg/dL (8.4-10.2); CREATININE, SERUM 0.78 mg/dL (0.57-1.11)
[2024-06-19 07:37] LABS: POTASSIUM 3.3 mmol/L (3.5-5.1)
[2024-06-19] MEDS: POTASSIUM CHLORIDE 10MEQ EA PO ONE (11:53)
[2024-06-20 06:30] VITALS: BP 97/54; PULSE 68; RESP 17; TEMP 98; O2SAT 100
[2024-06-20 07:08] LABS: CALCIUM 8.4 mg/dL (8.4-10.2); CREATININE, SERUM 0.89 mg/dL (0.57-1.11)
[2024-06-20 07:41] VITALS: BP 115/68; PULSE 56; RESP 21; TEMP 97.8; O2SAT 98
[2024-06-20 08:08] LABS: BASOPHILS % 0.3 % (0.0-1.0); EOSINOPHILS # (AUTO) 0.6 (0.0-0.4); EOSINOPHILS % 7.6 % (0.0-6.0); HEMATOCRIT 33.3 % (34.2-44.1); HEMOGLOBIN 10.5 g/dL (12.0-16.0); LYMPHOCYTES # (AUTO) 3.4 (1.0-3.2); LYMPHOCYTES % 45.6 % (18.0-39.1); MEAN CORPUSCULAR HEMOGLOBIN 30.7 pg (28-32); MEAN CORPUSCULAR HGB CONC 31.5 g/dL (31-35); MEAN CORPUSCULAR VOLUME 97.4 fL (81-99); MONOCYTES # (AUTO) 0.6 (0.2-0.8); MONOCYTES % 7.8 % (4.4-11.3); NEUTROPHILS # (AUTO) 2.9 (2.1-6.9); NEUTROPHILS % 38.2 % (38.7-80.0); PLATELET COUNT 310 x10e3/uL (140-360); RED BLOOD COUNT 3.42 x10e6/uL (3.6-5.1); RED CELL DISTRIBUTION WIDTH 14.1 % (11.7-14.4); WHITE BLOOD COUNT 7.48 x10e3/uL (4.8-10.8)
[2024-06-20 08:18] VITALS: BP 115/68; PULSE 56; RESP 21; TEMP 97.8; O2SAT 98
[2024-06-20 11:47] VITALS: BP 117/88; PULSE 69; RESP 19; TEMP 98.1; O2SAT 98
== END 2024-06-20 12:20 | disposition home or self-care (01) | DRG 418 ==
LOC: FSED 09:38 → ERHOLD 13:06 → MED/SURG2 15:00
PROVIDERS: ADMIT Internal Medicine; ATTEND Internal Medicine
PROC: 02HV33Z Insertion of Infusion Device into Superior Vena Cava, Percutaneous Approach (ICD-10-PCS; 2024-06-17)
PROC: 0FT44ZZ Resection of Gallbladder, Percutaneous Endoscopic Approach (ICD-10-PCS; principal; 2024-06-18 10:28)
DX: K80.10 Calculus of gallbladder with chronic cholecystitis without obstruction (principal); E66.01 Morbid (severe) obesity due to excess calories; Z68.43 Body mass index [BMI] 50.0-59.9, adult; I10 Essential (primary) hypertension; F41.9 Anxiety disorder, unspecified; K21.9 Gastro-esophageal reflux disease without esophagitis; G47.30 Sleep apnea, unspecified; K76.0 Fatty (change of) liver, not elsewhere classified; K57.90 Diverticulosis of intestine, part unspecified, without perforation or abscess without bleeding; M54.9 Dorsalgia, unspecified; Z79.52 Long term (current) use of systemic steroids; Z90.49 Acquired absence of other specified parts of digestive tract; Z86.718 Personal history of other venous thrombosis and embolism; Z86.711 Personal history of pulmonary embolism
CPT/HCPCS: 36415; 36569; 71045; 74176; 76705; 80048; 80053; 80076; 80307; 81025; 82553; 84484; 85025; 85610; 85730; 88304; 93005; 99284; C1766; J0330; J1100; J1885; J2003; J2270; J2405; J2470; J2543; J2550; J2765; J7030

== ENCOUNTER 2024-06-28 16:47 | Emergency (ER) | payer MEDICARE, OTHER ==
[~2024-06-28] VITALS: Ht 165.1 cm; Wt 129.7 kg
[~2024-06-28 16:47] MED LIST changes: +HYDROCODON-ACE1 EAC9 PO; +NEURONTIN400 MG PO
[2024-06-28 17:00] VITALS: TEMP 98.2
[2024-06-28 17:43] LABS: BASOPHILS % 0.3 % (0.0-1.0); EOSINOPHILS # (AUTO) 0.4 (0.0-0.4); EOSINOPHILS % 2.8 % (0.0-6.0); HEMATOCRIT 45.3 % (34.2-44.1); HEMOGLOBIN 15.3 g/dL (12.0-16.0); LYMPHOCYTES # (AUTO) 2.8 (1.0-3.2); LYMPHOCYTES % 19.7 % (18.0-39.1); MEAN CORPUSCULAR HEMOGLOBIN 30.6 pg (28-32); MEAN CORPUSCULAR HGB CONC 33.8 g/dL (31-35); MEAN CORPUSCULAR VOLUME 90.6 fL (81-99); MONOCYTES # (AUTO) 0.9 (0.2-0.8); NEUTROPHILS % 70.9 % (38.7-80.0); PLATELET COUNT 432 x10e3/uL (140-360); RED CELL DISTRIBUTION WIDTH 13.3 % (11.7-14.4); WHITE BLOOD COUNT 14.13 x10e3/uL (4.8-10.8)
[2024-06-28] MEDS ORDERED: IOPAMIDOL 370 MG/ML 100 ML INFUS..BTL INJ ONE (17:44)
[2024-06-28 17:58] LABS: ALANINE AMINOTRANSFERASE 52 IU/L (0-55); ALBUMIN 3.9 g/dL (3.5-5.0); ALBUMIN/GLOBULIN RATIO 0.9 (0.8-2.0); ALKALINE PHOSPHATASE 90 IU/L (40-150); ANION GAP 19.1 mmol/L (8-16); BILIRUBIN,TOTAL 1.7 mg/dL (0.2-1.2); BLOOD UREA NITROGEN 17 mg/dL (7-26); BUN/CREATININE RATIO 20 (6-25); CALCIUM 9.7 mg/dL (8.4-10.2); CARBON DIOXIDE 19 mmol/L (22-29); CHLORIDE 105 mmol/L (98-107); CREATININE, SERUM 0.83 mg/dL (0.57-1.11); EST GLOMERULAR FILTRATION RATE 87 ML/MIN (>=60); GLUCOSE 113 mg/dL (74-118); POTASSIUM 4.1 mmol/L (3.5-5.1); SODIUM 139 mmol/L (136-145); TOTAL PROTEIN 8.1 g/dL (6.5-8.1)
[2024-06-28 18:04] LABS: TROPONIN I < 0.001 ng/mL (0-0.300)
[2024-06-28] MEDS: Morphine 2mg Syringe 2 MG/ML SYR IV STA (18:11)
[2024-06-28] MEDS: ONDANSETRON HCL INJ 2MG/ML 2ML 2 MG/ML VIAL IV STA (18:11)
[2024-06-28 18:17] LABS: CREATINE KINASE < 7 IU/L (29-168)
[2024-06-28] MEDS: ACETAMINOPHEN 325 MG TAB PO STA (18:33)
[2024-06-28] MEDS: SODIUM CHLORIDE 0.9% 1000ML 1,000 ML IV STA (18:33)
[2024-06-28] MEDS ORDERED: CEPHALEXIN500 MG PO (19:12)
[2024-06-28 19:45] VITALS: PULSE 77; RESP 20; O2SAT 100
== END 2024-06-28 20:14 | disposition home or self-care (01) ==
LOC: ER 16:49
DX: R06.02 Shortness of breath (principal); R07.89 Other chest pain; G89.18 Other acute postprocedural pain; M79.605 Pain in left leg; Z11.52 Encounter for screening for COVID-19; R94.31 Abnormal electrocardiogram [ECG] [EKG]
CPT/HCPCS: 36415; 71260; 74177; 80053; 82550; 83605; 83690; 83880; 84484; 85025; 87040; 93005; 93971; 99284; J2270; J2405; J2543; J7030; Q9967; U0002

== ENCOUNTER 2024-07-25 09:00 | Emergency (ER) | payer MEDICARE, OTHER ==
[~2024-07-25] VITALS: Ht 165.1 cm; Wt 125.4 kg
[~2024-07-25 09:00] MED LIST changes: +CEPHALEXIN500 MG PO
[2024-07-25 09:05] VITALS: PULSE 90; RESP 20; TEMP 97.6
[2024-07-25] MEDS ORDERED: CLINDAMYCIN HC300 MG PO (09:34)
[2024-07-25] MEDS ORDERED: DOXYCYCLINE HY100 MG PO (09:35)
[2024-07-25 09:49] VITALS: BP 128/71; PULSE 81; RESP 16; TEMP 97.6; O2SAT 97
== END 2024-07-25 09:50 | disposition home or self-care (01) ==
LOC: FSED 09:10
DX: T81.49XA Infection following a procedure, other surgical site, initial encounter (principal); I10 Essential (primary) hypertension; E66.9 Obesity, unspecified
CPT/HCPCS: 87071; 87186; 87205; 99284

== ENCOUNTER 2024-11-15 15:59 | Emergency (ER) | payer MEDICARE, OTHER ==
[~2024-11-15] VITALS: Ht 165.1 cm; Wt 125.2 kg
[~2024-11-15 15:59] MED LIST changes: +CLINDAMYCIN HC300 MG PO; +DOXYCYCLINE HY100 MG PO
[2024-11-15 16:05] VITALS: TEMP 98.1
[2024-11-15 16:37] LABS: BASOPHILS # (AUTO) 0.1 (0.0-0.1); BASOPHILS % 0.9 % (0.0-1.0); EOSINOPHILS # (AUTO) 0.2 (0.0-0.4); HEMATOCRIT 40.3 % (34.2-44.1); HEMOGLOBIN 14.3 g/dL (12.0-16.0); LYMPHOCYTES # (AUTO) 3.4 (1.0-3.2); LYMPHOCYTES % 43.3 % (18.0-39.1); MEAN CORPUSCULAR HEMOGLOBIN 30.8 pg (28-32); MEAN CORPUSCULAR HGB CONC 35.5 g/dL (31-35); MEAN CORPUSCULAR VOLUME 86.9 fL (81-99); MONOCYTES # (AUTO) 0.7 (0.2-0.8); MONOCYTES % 9.1 % (4.4-11.3); NEUTROPHILS # (AUTO) 3.5 (2.1-6.9); NEUTROPHILS % 44.4 % (38.7-80.0); PLATELET COUNT 422 x10e3/uL (140-360); RED BLOOD COUNT 4.64 x10e6/uL (3.6-5.1); RED CELL DISTRIBUTION WIDTH 13.4 % (11.7-14.4); WHITE BLOOD COUNT 7.88 x10e3/uL (4.8-10.8)
[2024-11-15] MEDS: KETOROLAC TROMETHAMINE 30 MG/ML VIAL IV STA (16:49)
[2024-11-15] MEDS: LACTATED RINGER'S 1,000 ML INJ ONE (16:49)
[2024-11-15 16:52] LABS: ALANINE AMINOTRANSFERASE 39 IU/L (0-55); ALBUMIN/GLOBULIN RATIO 1.3 (0.8-2.0); ALKALINE PHOSPHATASE 69 IU/L (40-150); ANION GAP 16.2 mmol/L (8-16); BILIRUBIN,TOTAL 2.3 mg/dL (0.2-1.2); BLOOD UREA NITROGEN 13 mg/dL (7-26); BUN/CREATININE RATIO 15 (6-25); CALCIUM 9.2 mg/dL (8.4-10.2); CARBON DIOXIDE 22 mmol/L (22-29); CHLORIDE 104 mmol/L (98-107); CREATININE, SERUM 0.86 mg/dL (0.57-1.11); EST GLOMERULAR FILTRATION RATE 83 ML/MIN (>=60); GLUCOSE 96 mg/dL (74-118); LIPASE 17 U/L (8-78); SODIUM 139 mmol/L (136-145)
[2024-11-15 16:56] LABS: CORONAVIRUS COVID-19 AG NEGATIVE (NEGATIVE); INFLUENZA A AG NEGATIVE (NEGATIVE); INFLUENZA B AG NEGATIVE (NEGATIVE)
[2024-11-15 16:57] LABS: CLARITY,URINE CLOUDY (CLEAR); COLOR,URINE YELLOW (YELLOW)
[2024-11-15 16:58] LABS: BILIRUBIN,URINE NEGATIVE (NEGATIVE); GLUCOSE, URINE NEGATIVE (NEGATIVE); KETONES,URINE NEGATIVE (NEGATIVE); LEUKOCYTE ESTERASE ,URINE NEGATIVE (NEGATIVE); NITRITE,URINE NEGATIVE (NEGATIVE); PH,URINE 5.5 (5 - 7); PROTEIN,URINE DIPSTICK NEGATIVE (NEGATIVE); URINE UROBILINOGEN 0.2 mg/dL (0.2 - 1)
[2024-11-15 17:00] LABS: POTASSIUM 3.2 mmol/L (3.5-5.1); TROPONIN I < 0.001 ng/mL (0-0.300)
[2024-11-15 17:03] LABS: WBC,URINE (MAN) 0-5 /HPF (0-5)
[2024-11-15 17:04] LABS: BACTERIA,URINE MANY /HPF; EPITHELIAL CELLS,URINE MANY /LPF; RBC,URINE 0-5 /HPF (0-5)
[2024-11-15] MEDS: HYDROXYZINE PAMOATE 25 MG CAP PO STA (17:13)
[2024-11-15] MEDS ORDERED: CEFDINIR300 MG PO (17:19)
[2024-11-15 17:55] VITALS: PULSE 85; RESP 18; O2SAT 99
== END 2024-11-15 18:03 | disposition home or self-care (01) ==
LOC: ER 16:18
DX: R42 Dizziness and giddiness (principal); N39.0 Urinary tract infection, site not specified; R21 Rash and other nonspecific skin eruption; R53.83 Other fatigue; I10 Essential (primary) hypertension; Z11.52 Encounter for screening for COVID-19; R94.31 Abnormal electrocardiogram [ECG] [EKG]
CPT/HCPCS: 36415; 71045; 80053; 81001; 83690; 84484; 85025; 87428; 93005; 99284; J1885; J7121; Q0177

== ENCOUNTER 2025-04-05 12:34 | Emergency (ER) | payer MEDICARE, OTHER ==
[~2025-04-05] VITALS: Ht 165.1 cm; Wt 125.2 kg
[2025-04-05] MEDS ORDERED: KETOROLAC TROMETHAMINE 30 MG/ML VIAL ONE (15:58)
[2025-04-05] MEDS: MUPIROCIN 2% OINT 22 GM TUBE TOP STA (16:03)
[2025-04-05] MEDS: KETOROLAC TROMETHAMINE 30 MG/ML VIAL IV STA (16:03)
[2025-04-05] MEDS ORDERED: IOPAMIDOL 370 MG/ML 100 ML INFUS..BTL INJ ONE (18:54)
[2025-04-05] MEDS ORDERED: ULTRAM 50MG50 MG PO (19:55)
[2025-04-05 20:00] VITALS: PULSE 75; RESP 17; TEMP 97.6
[2025-04-05 23:07] VITALS: BP 118/70; PULSE 75; RESP 17; TEMP 97.6; O2SAT 100
== END 2025-04-05 20:06 | disposition home or self-care (01) ==
LOC: FSED 13:32
DX: R06.02 Shortness of breath (principal); R07.89 Other chest pain; R42 Dizziness and giddiness; I10 Essential (primary) hypertension; E66.89 Other obesity not elsewhere classified
CPT/HCPCS: 36569; 71260; 80053; 84484; 85025; 85379; 93005; 99284; J1885; Q9967